=== PATIENT | female | born 1940 | race Caucasian/White ===

== ENCOUNTER 2017-08-09 12:13 | Outpatient (CLI) | payer MEDICARE, OTHER ==
[2017-08-09 12:37] LABS: BASOPHILS # (AUTO) 0.1 10^3/uL (0.0-0.1); BASOPHILS % (AUTO) 1.4 %; EOSINOPHILS # (AUTO) 0.1 10^3/uL (0.0-0.7); EOSINOPHILS % (AUTO) 2.1 %; HGB - HEMOGLOBIN 14.6 g/dL (12.0-16.0); LYMPHOCYTES # (AUTO) 1.5 10^3/uL (1.5-3.5); LYMPHOCYTES % (AUTO) 28.6 %; MEAN CORPUSCULAR HEMOGLOBIN 32.4 pg (27.0-31.0); MEAN CORPUSCULAR HGB CONC 34.2 g/dL (32.0-36.0); MEAN CORPUSCULAR VOLUME 94.5 fL (81.0-99.0); MEAN PLATELET VOLUME 8.9 fL (7.9-10.8); MONOCYTES # (AUTO) 0.4 10^3/uL (0.0-1.0); MONOCYTES % (AUTO) 8.4 %; NEUTROPHILS # (AUTO) 3.2 10^3/uL (1.5-6.6); NEUTROPHILS % (AUTO) 59.5 %; PLT - PLATELET COUNT 217 10^3/uL (130-450); RED CELL DISTRIBUTION WIDTH 14.5 % (12.0-15.0); WHITE BLOOD COUNT 5.4 x10^3/uL (4.8-10.8)
[2017-08-09 12:48] LABS: CALCIUM 9.4 mg/dL (8.5-10.3); CREATININE 0.7 mg/dL (0.4-1.0)
== END 2017-08-09 12:14 | disposition home or self-care (01) ==
LOC: LAB 12:13
PROVIDERS: ATTEND Specialist
DX: L52 Erythema nodosum (principal)
CPT/HCPCS: 36415; 80048; 85025; 85651; 86060

== ENCOUNTER 2017-08-22 11:08 | Outpatient (CLI) | payer MEDICARE, OTHER ==
--- NOTE | 2017-08-22 12:16 | XRAY Report ---
TWO VIEW CHEST: 08/22/2017 CLINICAL INDICATION: Erythema nodosum. COMPARISON: 03/25/2008. FINDINGS: Frontal and lateral views of the chest demonstrate a normal cardiac silhouette. Linear scarring or atelectasis is seen at the left base. No focal infiltrate, effusion, or pneumothorax is present. IMPRESSION: LEFT BASILAR SCARRING OR ATELECTASIS. TD: 08/22/2017 12:15
== END 2017-08-22 11:09 | disposition home or self-care (01) ==
LOC: DI 11:08
PROVIDERS: ATTEND Family Medicine
DX: L52 Erythema nodosum (principal)
CPT/HCPCS: 71046

== ENCOUNTER 2017-09-15 09:05 | Outpatient (CLI) | payer MEDICARE, OTHER ==
[2017-09-15 09:45] LABS: CREATININE 0.8 mg/dL (0.4-1.0)
[2017-09-15] MEDS ORDERED: IOPAMIDOL-300 100 ML VIAL ONE (09:55)
[2017-09-15] MEDS ORDERED: IOPAMIDOL-300 50 ML VIAL ONE (09:55)
--- NOTE | 2017-09-15 12:31 | CT Report ---
CT ABDOMEN AND PELVIS WITH CONTRAST: 09/15/2017 CLINICAL INDICATION: Kidney mass. TECHNIQUE: Axial CT images of the abdomen and pelvis were obtained with 100 mL Isovue 300 intravenously as well as oral contrast. COMPARISON: 05/10/2015. FINDINGS: Limited evaluation of the lung bases demonstrates basilar atelectasis and a small pericardial effusion. ABDOMEN: Right adrenal adenoma is stable at 1.8 cm. There is no evidence of a renal mass. No hydronephrosis or perinephric collection is seen. Cholelithiasis is noted. The liver, spleen and pancreas appear unremarkable. No bowel dilatation, free gas, or free fluid is present. No abdominal adenopathy is seen. PELVIS: The appendix is seen in the right lower quadrant, and is normal in caliber. The patient is status post hysterectomy. No pelvic adenopathy or free fluid is present. Osseous structures demonstrate degenerative changes. IMPRESSION: 1. NO EVIDENCE OF KIDNEY MASS. 2. STABLE RIGHT ADRENAL ADENOMA. 3. CHOLEL[address]ASIS. CT DOSE REDUCTION STATEMENT In accordance with CT protocol optimization, one or more of the following dose reduction techniques were utilized for this exam: automated exposure control, adjustment of mA and/or KV based on patient size, or use of iterative reconstructive technique. TD: 09/15/2017 12:16
[2017-09-15] MEDS ORDERED: IOPAMIDOL-300 50 ML VIAL PO ONE (17:17)
[2017-09-15] MEDS ORDERED: IOPAMIDOL-300 100 ML VIAL IVP ONE (17:17)
== END 2017-09-15 09:06 | disposition home or self-care (01) ==
LOC: LAB 09:05 → DI 09:06
PROVIDERS: ATTEND Specialist
DX: N28.89 Other specified disorders of kidney and ureter (principal); D35.01 Benign neoplasm of right adrenal gland; K80.20 Calculus of gallbladder without cholecystitis without obstruction
CPT/HCPCS: 36415; 74177; 82565; Q9967

== ENCOUNTER 2018-06-03 12:56 | Outpatient (CLI) | payer MEDICARE, OTHER ==
--- NOTE | 2018-06-03 14:12 | XRAY Report ---
Reason: PNEUMONIA Procedure Date: 06/03/2018 Accession Number: [id number] / [id number] Procedure: XRN - Chest 2 View X-Ray CPT Code: 71196 FULL RESULT: EXAM: CHEST RADIOGRAPHY EXAM DATE: 06/03/2018 01:38 PM. CLINICAL HISTORY: PNEUMONIA. COMPARISON: Chest radiograph from 08/22/2017. TECHNIQUE: 2 views. FINDINGS: Lungs/Pleura: Streaky bibasilar opacities have not significantly changed. Streaky right mid lung opacity is slightly increased. Slightly nodular opacities in the right upper lung appear new since the prior examination. A small right pleural effusion is present. No definite left pleural effusion. No pneumothorax. Mediastinum: Cardiomediastinal silhouette and pulmonary vasculature are within normal limits. Other: None. IMPRESSION: 1. Suggestion of mild nodular opacities in the right upper lung, new from the prior examination. Findings could represent sequela of bronchiolitis or bronchopneumonia. However, radiographic follow-up is recommended in 6-8 weeks to ensure resolution and exclude pulmonary nodules. 2. No significant change in streaky bibasilar opacities, which may represent atelectasis or scar. 3. Small left pleural effusion. RADIA
== END 2018-06-03 12:57 | disposition home or self-care (01) ==
LOC: DI.N 12:56
PROVIDERS: ATTEND Specialist
DX: J18.9 Pneumonia, unspecified organism (principal); J90 Pleural effusion, not elsewhere classified
CPT/HCPCS: 71046

== ENCOUNTER 2019-04-10 11:51 | Emergency (ER) | payer MEDICARE, OTHER ==
--- NOTE | 2019-04-10 12:53 | ED Physician Documentation ---
PD HPI Fall - Stated complaint Stated Complaint: ANKLE PX - Chief complaint Chief Complaint: Ext Problem - History obtained from History obtained from: Patient - History of Present Illness Mechanism of injury: Tripped Fall distance: Standing position Where injury occurred: Home Timing - onset: How many days ago (2) Injury(ies) location: Right Upper Extremity, Left Lower Extremity Quality of pain: Pain, Throbbing Associated symptoms: No: LOC, AMS, Amnesia Symptoms improve with: Rest Worsens with: Movement, Palpation Contributing factors: No: Anticoagulated, Intoxicated Similar symptoms before: Has not had sx before Recently seen: Not recently seen - Additional information Additional information: 78 y/o female 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 Review of Systems Constitutional: denies: Fever Cardiac: denies: Chest pain / pressure Respiratory: denies: Cough GI: denies: Abdominal Pain, Nausea, Vomiting Skin: denies: Rash Musculoskeletal: reports: Extremity pain, Joint pain, Joint swelling, Pain with weight bearing. 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 HEENT: Tonsil/Adenoidectomy - Present Medications Home Medications: Ambulatory Orders Medication Instructions Recorded Confirmed Amitriptyline HCl 75 mg PO 08/28/12 03/26/15 Aspirin [Aspir 81] 81 mg PO 08/28/12 03/26/15 Citalopram [CeleXA] 20 mg PO DAILY 08/28/12 03/26/15 Diazepam [Valium] 5 mg PO Q8H PRN #15 tablet 08/28/12 03/26/15 Gabapentin [Neurontin] 100 mg PO TID 08/28/12 03/26/15 Hydrochlorothiazide 25 mg PO DAILY 08/28/12 03/26/15 Metoprolol Succinate 25 mg PO DAILY 08/28/12 03/26/15 Prazosin HCl [Minipress] 2 mg PO DAILY 08/28/12 03/26/15 amLODIPine [Norvasc] 10 mg PO DAILY 08/28/12 03/26/15 busPIRone [Buspar] 15 mg PO BID 08/28/12 03/26/15 HYDROcod/ACETAM 5/325 [Vicodin 1 - 2 ea PO Q6H PRN #30 tablet 03/26/13 03/26/15 5/325] Phenazopyridine [Pyridium] 200 mg PO TID 2 Days tablet 04/16/14 03/26/15 Lisinopril [Zestril] 5 mg PO DAILY 09/07/14 03/26/15 Sulfamethoxazole/Trimethoprim 1 each PO BID #14 tablet 03/26/15 [Sulfamethoxazole-Tmp Ds Tablet] Sulfamethoxazole/Trimethoprim 1 each PO BID #14 tablet 04/10/19 [Sulfamethoxazole-Tmp Ds Tablet] predniSONE [Prednisone] 40 mg PO DAILY #10 tablet 04/10/19 - Allergies Allergies/Adverse Reactions: Allergies Allergy/AdvReac Type Severity Reaction Status Date / Time ibuprofen AdvReac Severe Nausea Verified 04/10/19 12:08 aspirin AdvReac Mild Nausea Verified 04/10/19 12:08 codeine AdvReac Mild Nausea Verified 04/10/19 12:08 - Social History Does the pt smoke?: No Smoking Status: Never smoker Does the pt drink ETOH?: No Does the pt have substance abuse?: No - Immunizations Immunizations are current?: Yes PD ED PE NORMAL - Vitals Vital signs reviewed: Yes (tachy and hypertensive) - General General: Alert and oriented X 3, No acute distress, Well developed/nourished - HEENT HEENT: Atraumatic, PERRL, EOMI - Respiratory Respiratory: No respiratory distress - Derm Derm: Normal color, Warm and dry, No rash - Extremities Extremities: Other (There is marked swelling to the lateral left ankle over the talo-fibular ligament and there is not tenderness to the proximal 5th. distal n/v is intact. 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, No motor deficit, No sensory deficit, Normal speech Eye Opening: Spontaneous Motor: Obeys Commands Verbal: Oriented GCS Score: 15 - Psych Psych: Normal mood, Normal affect Results - Vitals Vitals: Vital Signs - 24 hr 04/10/19 12:05 Temperature 36.8 C Heart Rate 105 H Respiratory 18 Rate Blood Pressure 144/73 H O2 Saturation 95 Oxygen O2 Source Room air - Labs Labs: Laboratory Tests 04/10/19 13:35 Urine Color DARK YELLOW Urine Clarity CLEAR Urine pH 7.5 Ur Specific [place] 1.010 Urine Protein NEGATIVE Urine Glucose (UA) NEGATIVE Urine Ketones NEGATIVE Urine Occult Blood NEGATIVE Urine Nitrite POSITIVE H Urine Bilirubin NEGATIVE Urine Urobilinogen 1 (NORMAL) Ur Leukocyte Esterase TRACE H Urine RBC None Seen Urine WBC 6-10 H Ur Squamous Epith Cells MOD Squamous H Urine Bacteria Few Urine Casts 0-2 Hyaline Casts Ur Microscopic Review INDICATED Urine Culture Comments NOT INDICATED - Rads (name of study) ankle L Radiology: Prelim report reviewed (Impression: No left ankle fracture or malalignment seen.), EMP read indepedently, See rad report shoulder Radiology: Prelim report reviewed (Impression: No evidence for acute osseous injury.), EMP read indepedently, See rad report PD MEDICAL DECISION MAKING - ED course Complexity details: reviewed results, re-evaluated patient, considered differential, d/w patient ED course: 78 y/o female with a trip and fall in the bathroom has twisted her ankle and sprained her shoulders. Imagining is without evidence of fracture. She has a lot of swelling and is placed into a walking boot for ambulation. Departure - Departure Disposition: 01 Home, Self Care Clinical Impression: Urinary tract infection Qualifiers: Urinary tract infection type: acute cystitis Hematuria presence: without hematuria Qualified Code(s): N30.00 - Acute cystitis without hematuria Ankle sprain Qualifiers: Encounter type: initial encounter Involved ligament of ankle: calcaneofibular ligament Laterality: left Qualified Code(s): S93.412A - Sprain of calcan eofibular ligament of left ankle, initial encounter Shoulder sprain Qualifiers: Encounter type: initial encounter Shoulder sprain type: unspecified sprain Laterality: right Qualified Code(s): S43.401A - Unspecified sprain of right shoulder joint, initial encounter Condition: Stable Instructions: ED Sprain Ankle W X Ray, ED Sprain Shoulder, ED UTI Cystitis Female Follow-Up: [facility] [Provider Group] [facility] [Provider Group] Prescriptions: predniSONE [Prednisone] 40 mg PO DAILY #10 tablet Sulfamethoxazole/Trimethoprim [Sulfamethoxazole-Tmp Ds Tablet] 1 each PO BID #14 tablet
--- NOTE | 2019-04-10 13:45 | XRAY Report ---
Reason: ankle/shoulder inj Procedure Date: 04/10/2019 Accession Number: [id number] / [id number] Procedure: XR - Ankle 3 View LT CPT Code: Final Report FULL RESULT: EXAM: LEFT ANKLE RADIOGRAPHY EXAM DATE: 04/10/2019 01:22 PM. CLINICAL HISTORY: Ankle injury, pain COMPARISON: None. TECHNIQUE: 3 views. FINDINGS: Bones: No displaced fractures or bone lesions. Tiny well-corticated ossifications distal to the lateral and medial malleoli may be result of old trauma. Joints: Ankle mortise appears symmetric. No significant degenerative changes. Soft Tissues: Lateral soft tissue swelling. IMPRESSION: No left ankle fracture or malalignment seen. RADIA
--- NOTE | 2019-04-10 13:47 | XRAY Report ---
Reason: ankle/shoulder inj Procedure Date: 04/10/2019 Accession Number: [id number] / [id number] Procedure: XR - Shoulder 3 View BILAT CPT Code: Final Report FULL RESULT: Bilateral Shoulder Radiography EXAM DATE: 04/10/2019 01:22 PM. CLINICAL HISTORY: Ankle/shoulder inj. COMPARISON: None. TECHNIQUE: 3 views each. FINDINGS: Right: Bones: No fracture or bone lesion. Joints: The glenohumeral and acromioclavicular joints are normal. Soft tissues: The visualized hemithorax is unremarkable. No soft tissue swelling. Left: Bones: No fracture or bone lesion. Joints: The glenohumeral and acromioclavicular joints are normal. Soft tissues: The visualized hemithorax is unremarkable. No soft tissue swelling. IMPRESSION: No evidence for acute osseous injury. RADIA
[2019-04-10 13:49] LABS: BILIRUBIN,URINE NEGATIVE (NEGATIVE); GLUCOSE, URINE (UA) NEGATIVE (NEGATIVE); KETONES,URINE (UA) NEGATIVE (NEGATIVE); LEUKOCYTE ESTERASE, URINE TRACE (NEGATIVE); NITRITE,URINE POSITIVE (NEGATIVE); OCCULT BLOOD,URINE NEGATIVE (NEGATIVE); PH,URINE 7.5 PH (5.0-7.5); PROTEIN,URINE NEGATIVE (NEGATIVE); UROBILINOGEN,URINE 1 (NORMAL) E.U./dL (NORMAL)
[2019-04-10 13:52] LABS: CLARITY,URINE CLEAR (CLEAR)
[2019-04-10 14:03] LABS: BACTERIA,URINE Few /HPF (None Seen); CASTS, URINE 0-2 Hyaline Casts /LPF; RBC,URINE None Seen /HPF (0-5); SQUAMOUS EPITHELIAL CELL,UR MOD Squamous (<= Few)
[2019-04-10 14:16] VITALS: BP 152/74
== END 2019-04-10 14:16 | disposition home or self-care (01) ==
LOC: ED 11:51
DX: S93.412A Sprain of calcaneofibular ligament of left ankle, initial encounter (principal); S43.401A Unspecified sprain of right shoulder joint, initial encounter; W01.0XXA Fall on same level from slipping, tripping and stumbling without subsequent striking against object, initial encounter; Y92.002 Bathroom of unspecified non-institutional (private) residence as the place of occurrence of the external cause; N30.00 Acute cystitis without hematuria; I10 Essential (primary) hypertension; Z79.82 Long term (current) use of aspirin
CPT/HCPCS: 81001; 81003; 87086; 99284

== ENCOUNTER 2020-03-12 11:03 | Emergency (ER) | payer MEDICARE, OTHER ==
[2020-03-12 11:48] LABS: BILIRUBIN,URINE NEGATIVE (NEGATIVE); GLUCOSE, URINE (UA) NEGATIVE (NEGATIVE); KETONES,URINE (UA) NEGATIVE (NEGATIVE); LEUKOCYTE ESTERASE, URINE SMALL (NEGATIVE); NITRITE,URINE NEGATIVE (NEGATIVE); OCCULT BLOOD,URINE NEGATIVE (NEGATIVE); PROTEIN,URINE NEGATIVE (NEGATIVE); UROBILINOGEN,URINE 0.2 (NORMAL) E.U./dL (NORMAL)
[2020-03-12 11:56] LABS: CLARITY,URINE HAZY (CLEAR)
[2020-03-12 12:16] LABS: BASOPHILS # (AUTO) 0.1 10^3/uL (0.0-0.1); BASOPHILS % (AUTO) 1.3 %; EOSINOPHILS # (AUTO) 0.1 10^3/uL (0.0-0.7); EOSINOPHILS % (AUTO) 1.4 %; HGB - HEMOGLOBIN 15.4 g/dL (12.0-16.0); LYMPHOCYTES % (AUTO) 25.4 %; MEAN CORPUSCULAR HGB CONC 33.4 g/dL (32.0-36.0); MEAN CORPUSCULAR VOLUME 95.6 fL (81.0-99.0); MEAN PLATELET VOLUME 10.6 fL (7.9-10.8); MONOCYTES # (AUTO) 0.7 10^3/uL (0.0-1.0); MONOCYTES % (AUTO) 9.3 %; NEUTROPHILS % (AUTO) 62.3 %; PLT - PLATELET COUNT 256 10^3/uL (130-450); RED BLOOD COUNT 4.82 10^6/uL (4.20-5.40); RED CELL DISTRIBUTION WIDTH 13.2 % (12.0-15.0)
[2020-03-12 12:17] LABS: BACTERIA,URINE Few /HPF (None Seen); RBC,URINE 0-5 /HPF (0-5); SQUAMOUS EPITHELIAL CELL,UR FEW Squamous (<= Few); WBC CLUMPS,URINE PRESENT
[2020-03-12 12:30] LABS: ALBUMIN 4.1 g/dL (3.2-5.5); ALBUMIN/GLOBULIN RATIO 1.2 (1.0-2.2); BILIRUBIN,TOTAL 0.7 mg/dL (0.2-1.0); CALCIUM 9.8 mg/dL (8.5-10.3); CREATININE 0.8 mg/dL (0.4-1.0); TOTAL PROTEIN 7.5 g/dL (6.7-8.2)
[2020-03-12] MEDS ORDERED: ACETAMINOPHEN 325 MG TABLET PO STA (12:39)
[2020-03-12 13:14] VITALS: BP 147/98
--- NOTE | 2020-03-12 16:03 | ED Physician Documentation ---
History of Present Illness - Stated complaint Stated Complaint: FEMALE - Chief complaint Chief Complaint: UTI - Additonal information Additional information: 79-year-old woman with past medical history of recurrent UTIPresents with suprapubic abdominal pain that is mild, nonradiating aching, gradual onset today, associated with dysuria. Denies fever chills nausea vomiting or new onset back pain. Denies hematuria. Review of Systems Ten Systems: 10 systems reviewed and negative Constitutional: denies: Fever, Chills GI: reports: Abdominal Pain. 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 HEENT: Tonsil/Adenoidectomy - Present Medications Home Medications: Ambulatory Orders Medication Instructions Recorded Confirmed Amitriptyline HCl 75 mg PO 08/28/12 03/26/15 Aspirin [Aspir 81] 81 mg PO 08/28/12 03/26/15 Citalopram [CeleXA] 20 mg PO DAILY 08/28/12 03/26/15 Diazepam [Valium] 5 mg PO Q8H PRN #15 tablet 08/28/12 03/26/15 Gabapentin [Neurontin] 100 mg PO TID 08/28/12 03/26/15 Hydrochlorothiazide 25 mg PO DAILY 08/28/12 03/26/15 Metoprolol Succinate 25 mg PO DAILY 08/28/12 03/26/15 Prazosin HCl [Minipress] 2 mg PO DAILY 08/28/12 03/26/15 amLODIPine [Norvasc] 10 mg PO DAILY 08/28/12 03/26/15 busPIRone [Buspar] 15 mg PO BID 08/28/12 03/26/15 HYDROcod/ACETAM 5/325 [Vicodin 1 - 2 ea PO Q6H PRN #30 tablet 03/26/13 03/26/15 5/325] Phenazopyridine [Pyridium] 200 mg PO TID 2 Days tablet 04/16/14 03/26/15 lisinopriL [Zestril] 5 mg PO DAILY 09/07/14 03/26/15 Sulfamethoxazole/Trimethoprim 1 each PO BID #14 tablet 03/26/15 [Sulfamethoxazole-Tmp Ds Tablet] Sulfamethoxazole/Trimethoprim 1 each PO BID #14 tablet 04/10/19 [Sulfamethoxazole-Tmp Ds Tablet] predniSONE [Prednisone] 40 mg PO DAILY #10 tablet 04/10/19 Cephalexin [Keflex] 500 mg PO BID 5 Days #10 capsule 03/12/20 - Allergies Allergies/Adverse Reactions: Allergies Allergy/AdvReac Type Severity Reaction Status Date / Time ibuprofen AdvReac Severe Nausea Verified 03/12/20 11:24 aspirin AdvReac Mild Nausea Verified 03/12/20 11:24 codeine AdvReac Mild Nausea Verified 03/12/20 11:24 - Social History Does the pt smoke?: No Smoking Status: Never smoker Does the pt drink ETOH?: No Does the pt have substance abuse?: No - Immunizations Immunizations are current?: Yes - POLST Patient has POLST: No PD ED PE NORMAL - Vitals Vital signs reviewed: Yes - General General: Alert and oriented X 3 - HEENT HEENT: Atraumatic, PERRL, EOMI - Neck Neck: Supple, no meningeal sign - Cardiac Cardiac: RRR - Respiratory Respiratory: No respiratory distress - Abdomen Abdomen: Normal bowel sounds, Non tender, Non distended - Female Female : Deferred - Rectal Rectal: Deferred - Back Back: No CVA TTP - Derm Derm: Normal color - Extremities Extremities: No deformity - Neuro Neuro: Alert and oriented X 3 - Psych Psych: Normal mood, Normal affect Results - Vitals Vitals: Vital Signs - 24 hr 03/12/20 03/12/20 03/12/20 11:20 11:39 13:10 Temperature 36.0 C L 36.7 C 36.7 C Heart Rate 103 H 97 97 Respiratory 18 16 16 Rate Blood Pressure 173/91 H 148/91 H 147/98 H O2 Saturation 97 99 98 Oxygen O2 Source Room air - Labs Labs: Laboratory Tests 03/12/20 03/12/20 03/12/20 11:30 12:10 12:10 WBC 8.0 RBC 4.82 Hgb 15.4 Hct 46.1 MCV 95.6 MCH 32.0 H MCHC 33.4 RDW 13.2 Plt Count 256 MPV 10.6 Neut # (Auto) 5.0 Lymph # (Auto) 2.0 [place] # (Auto) 0.7 Eos # (Auto) 0.1 Baso # (Auto) 0.1 Absolute Nucleated RBC 0.00 Nucleated RBC % 0.0 Sodium 139 Potassium 4.2 Chloride 99 L Carbon Dioxide 29 Anion Gap 11.0 BUN 16 Creatinine 0.8 Estimated GFR (MDRD) 70 L Glucose 110 H Calcium 9.8 Total Bilirubin 0.7 AST 24 ALT 21 Alkaline Phosphatase 76 Total Protein 7.5 Albumin 4.1 Globulin 3.4 Albumin/Globulin Ratio 1.2 Lipase 38 Urine Color YELLOW Urine Clarity HAZY Urine pH 7.0 Ur Specific [place] 1.015 Urine Protein NEGATIVE Urine Glucose (UA) NEGATIVE Urine Ketones NEGATIVE Urine Occult Blood NEGATIVE Urine Nitrite NEGATIVE Urine Bilirubin NEGATIVE Urine Urobilinogen 0.2 (NORMAL) Ur Leukocyte Esterase SMALL H Urine RBC 0-5 Urine WBC 6-10 H Urine WBC Clumps PRESENT Ur Squamous Epith Cells FEW Squamous Urine Bacteria Few Ur Microscopic Review INDICATED Urine Culture Comments INDICATED PD MEDICAL DECISION MAKING - ED course Complexity details: reviewed results, d/w patient ED course: 79-year-old woman with recurrent UTIs presents with a episode of cystitis today. Keflex sent to pharmacy, with instructions to patient to take Florastor as well. Patient will need to follow-up with her primary doctor this week. strict return precautions given Departure - Departure Disposition: 01 Home, Self Care Clinical Impression: Cystitis Condition: Good Instructions: ED UTI Cystitis Female Prescriptions: Cephalexin [Keflex] 500 mg PO BID 5 Days #10 capsule Comments: You have been seen in the emergency department for urinary tract infection. Please take these antibiotics as prescribed. Follow-up with your primary doctor. Return to the ED for any new or worsening symptoms. Ask your pharmacist for Florastor Saccharomyces Boulardii pills to Be taken with your antibiotics to make sure that you restore your gut isaias. Discharge Date/Time: 03/12/20 13:16
== END 2020-03-12 13:16 | disposition home or self-care (01) ==
LOC: ED 11:03
DX: N30.90 Cystitis, unspecified without hematuria (principal); I10 Essential (primary) hypertension; Z79.82 Long term (current) use of aspirin
CPT/HCPCS: 36415; 80053; 81001; 83690; 85025; 87086; 87181; 99283; 99284; A9270; 81003

== ENCOUNTER 2021-08-22 01:45 | Outpatient (CLI) | payer MEDICARE, OTHER | END 2021-08-22 01:46 | disposition critical access hospital (66) | LOC: EMS 01:45 | DX: R44.1 Visual hallucinations (principal); R44.0 Auditory hallucinations; R51.9 Headache, unspecified; S00.12XA Contusion of left eyelid and periocular area, initial encounter; W19.XXXA Unspecified fall, initial encounter; Z91.81 History of falling | CPT/HCPCS: A0425; A0427 ==

== ENCOUNTER 2021-08-22 01:56 | Inpatient (IN) | payer MEDICARE, OTHER ==
--- NOTE | 2021-08-22 02:05 | ED Physician Documentation ---
PD HPI ALTERED MENTAL STATUS - Stated complaint Stated Complaint: AMS - History obtained from History obtained from: Patient, EMS - History of Present Illness Timing - onset: Unknown (see below (timing/onset is not clear)) Timing - duration: Weeks Quality / character: Hallucinating Associated symptoms: Headache. 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 Patient apparently called 911 due to hallucinations, although on my HPI she does not seem to be upset/bothered by the hallucinations and she is convinced they are not hallucinations. She also says she fell yesterday at home. EMS report that FSBS was 150. On my HPI, patient is definitely hallucinating but she cannot tell me what her chief concern is nor what she hopes can be done for her on this ER visit. Review of Systems Constitutional: denies: Fever Cardiac: reports: Reviewed and negative Respiratory: reports: Reviewed and negative GI: reports: Reviewed and negative : denies: Dysuria, Frequency Musculoskeletal: reports: Reviewed and negative Neurologic: reports: Headache, Head injury. denies: Generalized weakness, Focal weakness, Numbness, LOC Psychiatric: reports: Hallucinations. 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 HEENT: Tonsil/Adenoidectomy - Present Medications Home Medications: Ambulatory Orders Medication Instructions Recorded Confirmed Amitriptyline HCl 75 mg PO 08/28/12 03/26/15 Aspirin [Aspir 81] 81 mg PO 08/28/12 03/26/15 Citalopram [CeleXA] 20 mg PO DAILY 08/28/12 03/26/15 Diazepam [Valium] 5 mg PO Q8H PRN #15 tablet 08/28/12 03/26/15 Gabapentin [Neurontin] 100 mg PO TID 08/28/12 03/26/15 Hydrochlorothiazide 25 mg PO DAILY 08/28/12 03/26/15 Metoprolol Succinate 25 mg PO DAILY 08/28/12 03/26/15 Prazosin HCl [Minipress] 2 mg PO DAILY 08/28/12 03/26/15 amLODIPine [Norvasc] 10 mg PO DAILY 08/28/12 03/26/15 busPIRone [Buspar] 15 mg PO BID 08/28/12 03/26/15 HYDROcod/ACETAM 5/325 [Vicodin 1 - 2 ea PO Q6H PRN #30 tablet 03/26/13 03/26/15 5/325] Phenazopyridine [Pyridium] 200 mg PO TID 2 Days tablet 04/16/14 03/26/15 lisinopriL [Zestril] 5 mg PO DAILY 09/07/14 03/26/15 Sulfamethoxazole/Trimethoprim 1 each PO BID #14 tablet 03/26/15 [Sulfamethoxazole-Tmp Ds Tablet] Sulfamethoxazole/Trimethoprim 1 each PO BID #14 tablet 04/10/19 [Sulfamethoxazole-Tmp Ds Tablet] predniSONE [Prednisone] 40 mg PO DAILY #10 tablet 04/10/19 cephALEXin [Keflex] 500 mg PO BID 5 Days #10 capsule 03/12/20 - Allergies Allergies/Adverse Reactions: Allergies Allergy/AdvReac Type Severity Reaction Status Date / Time ibuprofen AdvReac Severe Nausea Verified 08/22/21 02:11 aspirin AdvReac Mild Nausea Verified 08/22/21 02:11 codeine AdvReac Mild Nausea Verified 08/22/21 02:11 - Social History Does the pt smoke?: No Smoking Status: Never smoker Does the pt drink ETOH?: No Does the pt have substance abuse?: No - Immunizations Immunizations are current?: Yes - POLST Patient has POLST: No PD ED PE NORMAL - Vitals Vital signs reviewed: Yes - General General: No acute distress, Well developed/nourished, Other (awake, alert. she is at least oriented x 2 (self, year). when I ask about location/place, she repeatedly provides irrelevant answer, mostly regarding her insurance and questions about how much this ED visit will cost) - HEENT HEENT: PERRL, EOMI, Moist mucous membranes, Other (left supraorbital flat echymosis without tenderness to palpation) - Neck Neck: No bony TTP - Cardiac Cardiac: RRR, No murmur - Respiratory Respiratory: No respiratory distress, Clear bilaterally - Abdomen Abdomen: Soft, Non tender - Derm Derm: Normal color, Warm and dry - Extremities Extremities: No deformity, No tenderness to palpate, No edema - Neuro Neuro: No motor deficit, No sensory deficit, Normal speech Results - Vitals Vitals: Vital Signs - 24 hr 08/22/21 08/22/21 08/22/21 02:05 02:11 04:00 Temperature 37.2 C Heart Rate 102 H 103 H 96 Respiratory 16 16 18 Rate Blood Pressure 175/104 H 195/90 H O2 Saturation 98 96 96 08/22/21 08/22/21 08/22/21 06:10 07:34 08:48 Temperature Heart Rate 83 74 73 Respiratory 19 18 19 Rate Blood Pressure 217/89 H 174/88 H 174/74 H O2 Saturation 97 97 96 Oxygen O2 Source Room air - Labs Labs: Microbiology 08/22/21 03:45 Urine Culture - Preliminary Urine,Clean Catch CULTURE IN PROGRESS. RESULTS TO FOLLOW. Laboratory Tests 08/22/21 08/22/21 08/22/21 02:21 02:21 02:21 WBC 9.4 RBC 4.63 Hgb 14.6 Hct 43.6 MCV 94.2 MCH 31.5 H MCHC 33.5 RDW 12.9 Plt Count 230 MPV 11.2 H Neut # (Auto) 6.2 Lymph # (Auto) 2.1 [place] # (Auto) 0.8 Eos # (Auto) 0.2 Baso # (Auto) 0.1 Absolute Nucleated RBC 0.00 Nucleated RBC % 0.0 Sodium 137 Potassium 3.2 L Chloride 101 Carbon Dioxide 27 Anion Gap 9.0 BUN 15 Creatinine 1.0 Estimated GFR (MDRD) 53 L Glucose 159 H Calcium 9.4 Total Bilirubin 0.7 AST 42 ALT 41 Alkaline Phosphatase 62 Total Protein 7.6 Albumin 3.8 Globulin 3.8 Albumin/Globulin Ratio 1.0 Lipase 30 TSH 2.84 Urine Color Urine Clarity Urine pH Ur Specific [place] Urine Protein Urine Glucose (UA) Urine Ketones Urine Occult Blood Urine Nitrite Urine Bilirubin Urine Urobilinogen Ur Leukocyte Esterase Urine RBC Urine WBC Ur Squamous Epith Cells Amorphous Sediment Urine Bacteria Urine Casts Ur Microscopic Review Urine Culture Comments Urine Opiates Screen Ur Oxycodone Screen Urine Methadone Screen Ur Propoxyphene Screen Ur Barbiturates Screen Ur Tricyclics Screen Ur Phencyclidine Scrn Ur Amphetamine Screen U Methamphetamines Scrn U Benzodiazepines Scrn Urine Cocaine Screen U Cannabinoids Screen Ethyl Alcohol < 5.0 08/22/21 03:45 WBC RBC Hgb Hct MCV MCH MCHC RDW Plt Count MPV Neut # (Auto) Lymph # (Auto) [place] # (Auto) Eos # (Auto) Baso # (Auto) Absolute Nucleated RBC Nucleated RBC % Sodium Potassium Chloride Carbon Dioxide Anion Gap BUN Creatinine Estimated GFR (MDRD) Glucose Calcium Total Bilirubin AST ALT Alkaline Phosphatase Total Protein Albumin Globulin Albumin/Globulin Ratio Lipase TSH Urine Color YELLOW Urine Clarity SL. CLOUDY Urine pH 6.5 Ur Specific [place] 1.010 Urine Protein TRACE Urine Glucose (UA) NEGATIVE Urine Ketones NEGATIVE Urine Occult Blood NEGATIVE Urine Nitrite NEGATIVE Urine Bilirubin NEGATIVE Urine Urobilinogen 0.2 (NORMAL) Ur Leukocyte Esterase MODERATE H Urine RBC 0-5 Urine WBC 6-10 H Ur Squamous Epith Cells FEW Squamous Amorphous Sediment Few Urine Bacteria Rare Urine Casts 3-5 Hyaline Casts Ur Microscopic Review INDICATED Urine Culture Comments INDICATED Urine Opiates Screen NEGATIVE Ur Oxycodone Screen NEGATIVE Urine Methadone Screen NEGATIVE Ur Propoxyphene Screen NEGATIVE Ur Barbiturates Screen NEGATIVE Ur Tricyclics Screen POSITIVE H Ur Phencyclidine Scrn NEGATIVE Ur Amphetamine Screen NEGATIVE U Methamphetamines Scrn NEGATIVE U Benzodiazepines Scrn NEGATIVE Urine Cocaine Screen NEGATIVE U Cannabinoids Screen NEGATIVE Ethyl Alcohol - Rads (name of study) CT head Radiology: Prelim report reviewed, See rad report PD MEDICAL DECISION MAKING - ED course Complexity details: reviewed old records, reviewed results, re-evaluated patient, considered differential, d/w patient, d/w family ED course: patient is awake, alert, conversant, and pleasant. She repeatedly endorses hallucinations, mostly involving one or more parrots that she insists are in the room. She initially seems comfortable with these hallucinations, even pleased to see what she says is her pet parrot. Later in stay, however, she becomes mildly upset , saying that the birds might hurt her or others. I talked with her son Peter (by phone), and he says she has had hallucinations for a few weeks. He says they have included thinking he (patient's son) had been hurt after they watched a true crime show on television, as well as recurrent thoughts that her had come back to life and was in the house. Patient's son says patient is self-sufficient and has not needed help with ADLs such as eating, grooming. He says he does not know what medications she takes as she handles her medications herself. Telepsychiatric consultation obtained, recommendations while in ED include zyprexa 2.5-5mg PO q6 hours PRN agitation. The telepsychiatrist also spoke with the patient's son Peter and it remains unclear as to whether patient would benefit from inpatient treatment at this time. Plan is to obtain social work consult to further ascertain if patient and her son would prefer inpatient treatment versus discharge and follow up with primary care provider. Patient is given 5mg TL zyprexa in ED and this did reduce her agitation and anxiety although the hallucinations regarding parrots in the room persisted. Care of patient turned over to Dr. Joshi at end of my shift pending SW consult and disposition. Departure - Departure Clinical Impression: Hallucinations Urinary tract infection Qualifiers: Urinary tract infection type: acute cystitis Hematuria presence: without hematuria Qualified Code(s): N30.00 - Acute cystitis without hematuria Condition: Stable Instructions: ED Confusion, ED UTI Cystitis Female Comments: Take the antibiotic prescribed by your primary care provider (Dr. Wolf) for your urinary tract infection. Outpatient pharmacy records indicate you filled a prescription for macrobid (nitrofurantoin, an antibiotic) yesterday (08/21); please take this as prescribed. Please follow up with your primary care provider as soon as can be arranged.
[2021-08-22 02:22] LABS: BASOPHILS # (AUTO) 0.1 10^3/uL (0.0-0.1); EOSINOPHILS # (AUTO) 0.2 10^3/uL (0.0-0.7); EOSINOPHILS % (AUTO) 1.6 %; HCT - HEMATOCRIT 43.6 % (37.0-47.0); HGB - HEMOGLOBIN 14.6 g/dL (12.0-16.0); LYMPHOCYTES # (AUTO) 2.1 10^3/uL (1.5-3.5); LYMPHOCYTES % (AUTO) 22.1 %; MEAN CORPUSCULAR HEMOGLOBIN 31.5 pg (27.0-31.0); MEAN CORPUSCULAR HGB CONC 33.5 g/dL (32.0-36.0); MEAN CORPUSCULAR VOLUME 94.2 fL (81.0-99.0); MEAN PLATELET VOLUME 11.2 fL (7.9-10.8); MONOCYTES # (AUTO) 0.8 10^3/uL (0.0-1.0); MONOCYTES % (AUTO) 8.9 %; NEUTROPHILS # (AUTO) 6.2 10^3/uL (1.5-6.6); NEUTROPHILS % (AUTO) 66.1 %; PLT - PLATELET COUNT 230 10^3/uL (130-450); RED BLOOD COUNT 4.63 10^6/uL (4.20-5.40); RED CELL DISTRIBUTION WIDTH 12.9 % (12.0-15.0); WHITE BLOOD COUNT 9.4 x10^3/uL (4.8-10.8)
[2021-08-22 02:35] LABS: ALBUMIN 3.8 g/dL (3.2-5.5); ALKALINE PHOSPHATASE 62 IU/L (42-121); ALT ALANINE AMINOTRANSFERASE 41 IU/L (10-60); AST ASPARTATE AMINOTRANSFERASE 42 IU/L (10-42); BILIRUBIN,TOTAL 0.7 mg/dL (0.2-1.0); BUN - BLOOD UREA NITROGEN 15 mg/dL (6-20); CALCIUM 9.4 mg/dL (8.5-10.3); CARBON DIOXIDE - CO2 27 mmol/L (21-32); CHLORIDE 101 mmol/L (101-111); ETOH - ETHANOL < 5.0 mg/dL; GFR - MDRD 53 (>89); GLUCOSE 159 mg/dL (70-100); LIPASE 30 U/L (22-51); POTASSIUM 3.2 mmol/L (3.5-5.0); SODIUM 137 mmol/L (135-145); TOTAL PROTEIN 7.6 g/dL (6.7-8.2)
[2021-08-22 03:51] LABS: MUDS CUTOFF CONCENTRATIONS CUTOFF CONC BELOW:
[2021-08-22 03:53] LABS: BILIRUBIN,URINE NEGATIVE (NEGATIVE); GLUCOSE, URINE (UA) NEGATIVE (NEGATIVE); KETONES,URINE (UA) NEGATIVE (NEGATIVE); LEUKOCYTE ESTERASE, URINE MODERATE (NEGATIVE); NITRITE,URINE NEGATIVE (NEGATIVE); OCCULT BLOOD,URINE NEGATIVE (NEGATIVE); PH,URINE 6.5 PH (5.0-7.5); PROTEIN,URINE TRACE mg/dL (NEGATIVE); UROBILINOGEN,URINE 0.2 (NORMAL) E.U./dL (NORMAL)
[2021-08-22 03:55] LABS: CLARITY,URINE SL. CLOUDY (CLEAR)
[2021-08-22 04:02] LABS: AMPHETAMINE SCREEN,URINE NEGATIVE (NEGATIVE); BARBITURATE SCREEN,UR NEGATIVE (NEGATIVE); BENZODIAZEPINES SCREEN, URINE NEGATIVE (NEGATIVE); COCAINE SCREEN URINE NEGATIVE (NEGATIVE); METHADONE SCREEN, URINE NEGATIVE (NEGATIVE); METHAMPHETAMINES SCREEN, URINE NEGATIVE (NEGATIVE); OPIATE SCREEN, URINE NEGATIVE (NEGATIVE); OXYCODONE SCREEN, URINE NEGATIVE (NEGATIVE); PROPOXYPHENE SCREEN, URINE NEGATIVE (NEGATIVE); THC CANNABINOID SCREEN, URINE NEGATIVE (NEGATIVE); TRICYCLIC ANTIDEPRESSANT,URINE POSITIVE (NEGATIVE)
[2021-08-22 04:05] LABS: AMORPHOUS SEDIMENT,UR Few /LPF; BACTERIA,URINE Rare /HPF (None Seen); CASTS, URINE 3-5 Hyaline Casts /LPF; RBC,URINE 0-5 /HPF (0-5); SQUAMOUS EPITHELIAL CELL,UR FEW Squamous (<= Few)
[2021-08-22] MEDS ORDERED: cefTRIAXone 1 GM in SODIUM CHLORIDE 0.9% MINIBAG 100 ML IV STA (04:21)
[2021-08-22] MEDS ORDERED: METOPROLOL TARTRATE 50 MG TABLET PO STA (04:37)
[2021-08-22] MEDS ORDERED: METOPROLOL SUCCINATE 25 MG TABLET PO STA (04:41)
[2021-08-22] MEDS ORDERED: cefTRIAXone 1 GM VIAL ONE (04:45)
[2021-08-22] MEDS ORDERED: OLANZapine ODT 5 MG TABLET TL STA ×2 (06:20→13:34)
[2021-08-22] MEDS ORDERED: METOPROLOL 5 MG/5 ML VIAL IVP STA (06:42)
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
--- NOTE | 2021-08-22 08:20 | CT Report ---
PROCEDURE: HEAD WO INDICATIONS: recent fall, AMS TECHNIQUE: Noncontrast 4.5 mm thick angled axial sections acquired from the foramen magnum to the vertex. For r adiation dose reduction, the following was used: automated exposure control, adjustment of mA and/or kV according to patient size. COMPARISON: None. FINDINGS: Image quality: Excellent. CSF spaces: Basal cisterns are patent. No extra-axial fluid collections. Ventricles are normal in size and shape. Brain: No midline shift. No intracranial masses or hemorrhage. Mild cerebral volume loss and perive ntricular white matter chronic small vessel ischemic changes.. Skull and face: Calvarium and visualized facial bones are intact, without suspicious lesions. Sinuses: Visualized sinuses and mastoids are clear. IMPRESSION: 1. No acute intracranial abnormalities. No significant discrepancy with the preliminary interpretation. Reviewed by: Rome Banda MD on 08/22/2021 8:19 AM PDT Approved by: Rome Banda MD on 08/22/2021 8:19 AM PDT Station ID: [id number]
[2021-08-22 16:28] LABS: BASOPHILS # (AUTO) 0.1 10^3/uL (0.0-0.1); BASOPHILS % (AUTO) 1.1 %; EOSINOPHILS # (AUTO) 0.1 10^3/uL (0.0-0.7); EOSINOPHILS % (AUTO) 1.4 %; HCT - HEMATOCRIT 43.8 % (37.0-47.0); HGB - HEMOGLOBIN 14.8 g/dL (12.0-16.0); LYMPHOCYTES # (AUTO) 2.3 10^3/uL (1.5-3.5); LYMPHOCYTES % (AUTO) 27.5 %; MEAN CORPUSCULAR HEMOGLOBIN 31.7 pg (27.0-31.0); MEAN CORPUSCULAR HGB CONC 33.8 g/dL (32.0-36.0); MEAN CORPUSCULAR VOLUME 93.8 fL (81.0-99.0); MEAN PLATELET VOLUME 10.9 fL (7.9-10.8); MONOCYTES # (AUTO) 0.8 10^3/uL (0.0-1.0); NEUTROPHILS # (AUTO) 5.1 10^3/uL (1.5-6.6); NEUTROPHILS % (AUTO) 60.8 %; PLT - PLATELET COUNT 224 10^3/uL (130-450); RED BLOOD COUNT 4.67 10^6/uL (4.20-5.40); WHITE BLOOD COUNT 8.4 x10^3/uL (4.8-10.8)
[2021-08-22 16:41] LABS: ALBUMIN 3.9 g/dL (3.2-5.5); BILIRUBIN,TOTAL 0.6 mg/dL (0.2-1.0); CALCIUM 9.4 mg/dL (8.5-10.3); CREATININE 0.8 mg/dL (0.4-1.0); POTASSIUM 3.3 mmol/L (3.5-5.0)
[2021-08-22] MEDS ORDERED: ONDANSETRON 4 MG/2 ML VIAL IVP PRN (17:23)
[2021-08-22] MEDS ORDERED: SODIUM CHLORIDE FLUSH 0.9% 10 ML SYRINGE IVP PRN (17:23)
[2021-08-22] MEDS ORDERED: POTASSIUM CHLORIDE 20 MEQ TABLET PO STA (17:29)
[2021-08-22] MEDS ORDERED: lisinopriL 5 MG TABLET PO SCH (17:33)
[2021-08-22] MEDS ORDERED: amLODIPine 5 MG TABLET PO SCH (17:35)
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
[2021-08-22] MEDS ORDERED: SODIUM CHLORIDE 0.9% 1,000 ML IV SCH (18:00)
[2021-08-22] MEDS ORDERED: hydrALAZINE INJ 20 MG/ML VIAL IVP PRN (18:17)
[2021-08-22] MEDS: SODIUM CHLORIDE 0.9% 1,000 ML IV SCH (18:28)
[2021-08-22] MEDS ORDERED: clonazePAM 0.5 MG TABLET PO PRN (19:11)
[2021-08-22] MEDS ORDERED: clonazePAM 0.5 MG TABLET PO SCH (20:00)
[2021-08-22] MEDS ORDERED: OLANZapine ODT 5 MG TABLET TL PRN (20:00)
[2021-08-23] MEDS: SODIUM CHLORIDE FLUSH 0.9% 10 ML SYRINGE IVP SCH ×3 (00:59→16:59)
[2021-08-23 05:12] LABS: BASOPHILS # (AUTO) 0.1 10^3/uL (0.0-0.1); EOSINOPHILS # (AUTO) 0.1 10^3/uL (0.0-0.7); EOSINOPHILS % (AUTO) 1.1 %; HCT - HEMATOCRIT 45.9 % (37.0-47.0); HGB - HEMOGLOBIN 15.4 g/dL (12.0-16.0); LYMPHOCYTES % (AUTO) 21.1 %; MEAN CORPUSCULAR HEMOGLOBIN 31.2 pg (27.0-31.0); MEAN CORPUSCULAR HGB CONC 33.6 g/dL (32.0-36.0); MEAN CORPUSCULAR VOLUME 93.1 fL (81.0-99.0); MEAN PLATELET VOLUME 11.4 fL (7.9-10.8); MONOCYTES # (AUTO) 0.8 10^3/uL (0.0-1.0); MONOCYTES % (AUTO) 8.4 %; NEUTROPHILS # (AUTO) 6.5 10^3/uL (1.5-6.6); NEUTROPHILS % (AUTO) 68.1 %; PLT - PLATELET COUNT 260 10^3/uL (130-450); RED BLOOD COUNT 4.93 10^6/uL (4.20-5.40); RED CELL DISTRIBUTION WIDTH 13.1 % (12.0-15.0); WHITE BLOOD COUNT 9.5 x10^3/uL (4.8-10.8)
[2021-08-23 05:25] LABS: CALCIUM 9.4 mg/dL (8.5-10.3); CREATININE 0.8 mg/dL (0.4-1.0); POTASSIUM 3.5 mmol/L (3.5-5.0)
[2021-08-23] MEDS: ACETAMINOPHEN 325 MG TABLET PO PRN (06:24)
[2021-08-23] MEDS: GABAPENTIN 100 MG CAPSULE PO SCH ×3 (07:56→21:11)
[2021-08-23] MEDS: AMITRIPTYLINE 25 MG TABLET PO SCH ×2 (07:56→21:11)
[2021-08-23] MEDS: lisinopriL 5 MG TABLET PO SCH (07:56)
[2021-08-23] MEDS: amLODIPine 5 MG TABLET PO SCH (07:56)
[2021-08-23] MEDS: SACCHAROMYCES BOULARDII 250 MG CAPSULE PO SCH ×2 (07:58→16:58)
[2021-08-23] MEDS: METOPROLOL SUCCINATE 25 MG TABLET PO SCH (07:58)
[2021-08-23] MEDS: ENOXAPARIN 40 MG/0.4 ML SYRINGE SUBQ SCH (07:58)
[2021-08-23] MEDS ORDERED: cefTRIAXone 1 GM in SODIUM CHLORIDE 0.9% MINIBAG 100 ML IV SCH (09:00)
[2021-08-23] MEDS ORDERED: METOPROLOL SUCCINATE 25 MG TABLET PO SCH (09:00)
[2021-08-23] MEDS ORDERED: ASPIRIN CHEW 81 MG TABLET PO SCH (09:00)
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
[2021-08-23] MEDS: SODIUM CHLORIDE 0.9% 1,000 ML IV SCH ×2 (10:58→20:37)
--- NOTE | 2021-08-23 12:16 | PHARMACY PROGRESS NOTE ---
- Best Possible Medication History Admit Date and Time: 08/23/21 1007 Processed by: Pharmacy Medication History completed: Yes Secondary Source(s): Physician records, Pharmacy records, Insurance records As the person ultimately responsible for medication therapy, providers are able to order a medication from an existing home medication list in [facility] via the "Reconcile Routine" prior to Confirmation of that medication by product support specialist. Such practice is discouraged except when the physician, in their clinical judgment, deems that a medical need exists for a medication without regard to previous use.
[2021-08-23] MEDS ORDERED: clonazePAM 0.5 MG TABLET PO PRN (14:05)
[2021-08-23] MEDS ORDERED: clonazePAM 0.5 MG TABLET PO SCH (16:00)
[2021-08-24] MEDS: SODIUM CHLORIDE FLUSH 0.9% 10 ML SYRINGE IVP SCH ×3 (01:52→17:14)
[2021-08-24 05:52] LABS: BASOPHILS # (AUTO) 0.1 10^3/uL (0.0-0.1); BASOPHILS % (AUTO) 0.7 %; EOSINOPHILS # (AUTO) 0.2 10^3/uL (0.0-0.7); EOSINOPHILS % (AUTO) 1.7 %; HCT - HEMATOCRIT 43.1 % (37.0-47.0); LYMPHOCYTES # (AUTO) 2.2 10^3/uL (1.5-3.5); LYMPHOCYTES % (AUTO) 22.6 %; MEAN CORPUSCULAR HEMOGLOBIN 31.5 pg (27.0-31.0); MEAN CORPUSCULAR HGB CONC 32.5 g/dL (32.0-36.0); MEAN CORPUSCULAR VOLUME 96.9 fL (81.0-99.0); MEAN PLATELET VOLUME 11.3 fL (7.9-10.8); MONOCYTES # (AUTO) 0.8 10^3/uL (0.0-1.0); MONOCYTES % (AUTO) 8.5 %; NEUTROPHILS # (AUTO) 6.5 10^3/uL (1.5-6.6); NEUTROPHILS % (AUTO) 66.2 %; PLT - PLATELET COUNT 227 10^3/uL (130-450); RED BLOOD COUNT 4.45 10^6/uL (4.20-5.40); RED CELL DISTRIBUTION WIDTH 13.2 % (12.0-15.0); WHITE BLOOD COUNT 9.9 x10^3/uL (4.8-10.8)
[2021-08-24 05:59] LABS: POTASSIUM 3.6 mmol/L (3.5-5.0)
[2021-08-24] MEDS: GABAPENTIN 100 MG CAPSULE PO SCH ×3 (06:33→21:23)
[2021-08-24] MEDS: amLODIPine 5 MG TABLET PO SCH (09:25)
[2021-08-24] MEDS: SACCHAROMYCES BOULARDII 250 MG CAPSULE PO SCH ×2 (09:25→17:12)
[2021-08-24] MEDS: lisinopriL 5 MG TABLET PO SCH (09:26)
[2021-08-24] MEDS: ENOXAPARIN 40 MG/0.4 ML SYRINGE SUBQ SCH (09:26)
[2021-08-24] MEDS: METOPROLOL SUCCINATE 25 MG TABLET PO SCH (09:26)
[2021-08-24] MEDS: cephALEXin 250 MG CAPSULE PO SCH ×3 (10:28→17:42)
[2021-08-24] MEDS: ACETAMINOPHEN 325 MG TABLET PO PRN (11:51)
--- NOTE | 2021-08-24 13:03 | PROVIDER PROGRESS NOTE ---
Subjective - Prog Note Date Prog Note Date: 08/24/21 Prog Note Time: 13:00 - Subjective Subjective: She is back to hallucinating. Having ongoing conversation with someone in the room. She will not tell me who it is. But she is very angry with him and tells me that "they are with the devil and they are evil". She makes statements along the lines of "do not get anywhere near me or I will have at you and you will see". She is speaking to the hallucination in the room. She keeps on pulling off her sheets. She has disrobed and is naked and now only has on a diaper. We can keep an IV in place. I have asked for DCR to be involved again. Other than her hallucinations and paranoia, there is no new events for this unfortunate female. There is no fever, vitals are stable. No cough. She is eating anywhere between 25 to 75% of her meals. She is having urinary retention but refuses to let us put in a straight cath. Current Medications - Current Medications Current Medications: Active Medications Acetaminophen (Acetaminophen 325 Mg Tablet) 650 mg PO Q4HR PRN PRN Reason: Pain 1 to 4, or Fever Last Admin: 08/24/21 11:51 Dose: 650 mg Amitriptyline HCl (Amitriptyline 25 Mg Tablet) 75 mg PO QPM [facility] Last Admin: 08/23/21 21:11 Dose: 75 mg Amlodipine Besylate (Amlodipine 5 Mg Tablet) 10 mg PO DAILY [facility] Last Admin: 08/24/21 09:25 Dose: 10 mg Cephalexin (Cephalexin 250 Mg Capsule) 500 mg PO QID [facility] Stop: 08/24/21 18:01 Last Admin: 08/24/21 10:28 Dose: 500 mg Clonazepam (Clonazepam 0.5 Mg Tablet) 0.5 mg PO TID PRN PRN Reason: Anxiety Enoxaparin Sodium (Enoxaparin 40 Mg/0.4 Ml Syringe) 40 mg SUBQ DAILY [facility] Last Admin: 08/24/21 09:26 Dose: 40 mg Gabapentin (Gabapentin 100 Mg Capsule) 200 mg PO TID [facility] Last Admin: 08/24/21 06:33 Dose: 200 mg Hydralazine HCl (Hydralazine Inj 20 Mg/Ml Vial) 10 mg IVP Q4H PRN PRN Reason: Hypertensive Emergency Last Admin: 08/22/21 19:00 Dose: 10 mg Lisinopril (Lisinopril 5 Mg Tablet) 5 mg PO DAILY [facility] Last Admin: 08/24/21 09:26 Dose: 5 mg Metoprolol Succinate (Metoprolol Succinate 25 Mg Tablet) 50 mg PO DAILY [facility] Last Admin: 08/24/21 09:26 Dose: 50 mg Ondansetron HCl (Ondansetron 4 Mg/2 Ml Vial) 4 mg IVP Q6HR PRN PRN Reason: Nausea / Vomiting Saccharomyces Boulardii (Saccharomyces Boulardii 250 Mg Capsule) 250 mg PO BIDWM [facility] Last Admin: 08/24/21 09:25 Dose: 250 mg Sodium Chloride (Sodium Chloride Flush 0.9% 10 Ml Syringe) 10 ml IVP PRN PRN PRN Reason: NEEDED PER PROVIDER ORDERS Sodium Chloride (Sodium Chloride Flush 0.9% 10 Ml Syringe) 10 ml IVP 0100,0900,1700 [facility] Last Admin: 08/24/21 10:19 Dose: Not Given Amitriptyline HCl 75 mg PO HS 08/28/12 Gabapentin [Neurontin] 200 mg PO TID 08/28/12 amLODIPine [Norvasc] 10 mg PO DAILY 08/28/12 Nitrofurantoin [Macrobid] 100 mg PO HS 08/22/21 clonazePAM [Clonazepam] 0.5 mg PO TID PRN 08/22/21 Metoprolol Succinate [Toprol Xl] 50 mg PO DAILY 08/23/21 Objective - Vital Signs/Intake & Output Reviewed Vital Signs: Yes Vital Signs: Vital Signs x48h Temp Pulse Resp BP Pulse Ox 08/24/21 12:44 110/51 L 08/24/21 08:15 37.2 C 86 16 138/63 H 96 Intake & Output: Intake & Output 08/21/21 08/22/21 08/23/21 08/24/21 23:59 23:59 23:59 23:59 Intake Total 252.621 7059.352 1420 Output Total 100 1000 Balance 220.142 4897.352 420 - Objective General Appearance: positive: Alert, Other (Elderly, agitated female, unable to tell me where she is, why she is here, and insisting on speaking to the "evil person in the room" which is a hallucination) Eyes Bilateral: positive: PERRL, EOMI ENT: positive: Pharynx nml Neck: positive: No JVD Respiratory: positive: No respiratory distress. negative: Wheezes, Rales, Rhonchi Cardiovascular: positive: Regular rate & rhythm. negative: Gallop/S4, Friction rub Abdomen: positive: No organomegaly, Nml bowel sounds, No distention, Other (Mild tenderness over the bladder area where she found that me and then removed my hands and said stop doing that) Skin: positive: Warm, Dry. negative: Pallor Extremities: positive: Non-tender, Full ROM, No pedal edema Neurologic/Psychiatric: positive: CN's nml (2-12), Motor nml (Purposeful movement using her arms and hands. Able to sit up in bed. Moving her legs around trying to get out of bed.), Disoriented to person, Disoriented to place, Disoriented to time - Lab Results Fish Bones: 08/24/21 05:44 08/24/21 05:44 Other Labs: Lab Results x24hrs 08/24/21 08/24/21 Range/Units 05:44 05:44 WBC 9.9 (4.8-10.8) x10^3/uL RBC 4.45 (4.20-5.40) 10^6/uL Hgb 14.0 (12.0-16.0) g/dL Hct 43.1 (37.0-47.0) % MCV 96.9 (81.0-99.0) fL MCH 31.5 H (27.0-31.0) pg MCHC 32.5 (32.0-36.0) g/dL RDW 13.2 (12.0-15.0) % Plt Count 227 (130-450) 10^3/uL MPV 11.3 H (7.9-10.8) fL Neut # (Auto) 6.5 (1.5-6.6) 10^3/uL Lymph # (Auto) 2.2 (1.5-3.5) 10^3/uL [place] # (Auto) 0.8 (0.0-1.0) 10^3/uL Eos # (Auto) 0.2 (0.0-0.7) 10^3/uL Baso # (Auto) 0.1 (0.0-0.1) 10^3/uL Absolute Nucleated RBC 0.00 x10^3/uL Nucleated RBC % 0.0 /100WBC Sodium 143 (135-145) mmol/L Potassium 3.6 (3.5-5.0) mmol/L Chloride 110 (101-111) mmol/L Carbon Dioxide 26 (21-32) mmol/L Anion Gap 7.0 (6-13) BUN 19 (6-20) mg/dL Creatinine 1.0 (0.4-1.0) mg/dL Estimated GFR (MDRD) 53 L (>89) Glucose 111 H (70-100) mg/dL Calcium 9.0 (8.5-10.3) mg/dL ABX Reporting Has patient been on IV antibiotics over the past 48 hours?: Yes Assessment/Plan - Problem List (1) Hallucinations Impression: When she was admitted the story we got is a lady who has been gradually deteriorating with guards to grasp on reality since April. Is been attributed to changes in medications but even with the resumption of her medications, benzodiazepines, she is still altered. CT of the head was negative on admission. Her tox screen was positive for tricyclics but negative for everything else. Her electrolytes are not deranged. CBC is normal. So we have come to the conclusion that she is having some type of mental health episode that is acute and not her norm. This acute exacerbation seems to be superimposed on a chronic indolent process that may have been started several months ago. She does have a hx of PTSD Plan: DCR for consultation. Barriers to transfer will be her age and needing a cane or walker (which she tends to use as weapons). I will also obtain a telemetry psych evaluation if possible. We ordered it 08/22 and not followed up on. At this point in time she is without any acute medical illness that we can treat. This seems to be strictly psychiatric. (2) HTN (hypertension) Conclusion/Plan: Blood pressure is controlled. On admission she was 106 systolic. Since hydration, food, etc. her systolic is now 136 today. She is on amlodipine daily. As well as her metoprolol. Hydralazine is added as as needed for hypertension
[2021-08-24] MEDS ORDERED: OLANZapine 10 MG VIAL IM ONE (17:16)
[2021-08-24] MEDS: OLANZapine 10 MG VIAL IM SCH (20:36)
[2021-08-24] MEDS: AMITRIPTYLINE 25 MG TABLET PO SCH (20:39)
[2021-08-24] MEDS ORDERED: LORazepam 1 MG TABLET PO PRN (21:50)
--- NOTE | 2021-08-24 22:03 | TELEPSYCH PHYS NOTE ---
Telepsych Consultation Note Consult: Name: Jennie MuroDOB: 1940 DateandTime: 08/25/2021 12:37:58 AM [facility] Length of consult: 30 min This evaluation was conducted via video telepsychiatry with the assistance of onsite staff Reason for consult: Re-eval Requested by: Dr Samuels Interval History: The patient is 81-year-old female with history of PTSD anxiety who presented to the ER via EMS due to visual hallucinations. The patient was previously seen by psychiatry two days ago. During that evaluation, the patient endorsed visual but not auditory hallucinations. The patient was delusional. She reported that her was dug up, came back to life, and was harassing the patient .The patient told the ER doctor and psychiatrist that she had missed doses of Klonopin and had not been on any 4-5 days prior to admission. A reevaluation was recommended today as a patient continues to experience visual hallucinations. When seen by psychiatry, the patient was hyper verbal, rambling, and agitated. The patient was pointing at people in the room who weren't there. The patient stated that she was surrounded by murderers. The patient thought that the nurse was her grandmother. The patient was oriented only to self. She did not know the year or month and believed that she was in someone's basement which he called the "war room." Medications & Freq: Wgviiv30 mg 2 PM, Klonopin 0.5 mg PO TID PRN anxiety, Neurontin 200 mg PO TID, olanzapine 2.5 mg IM BID. See chart for complete list of nonpsychiatric meds Mental Status Exam: Appearance and Attire: Psychomotor agitation:Psychomotor agitation Attitude and behavior:Agitated, Restless, Guarded, Suspicious, Responding to internal stimuli , Hostile Speech:Rapid, Pressured Mood:Dysthymic, Manic, Labile Affect:Full range of affect Thought process:Tangential, Vague, Loose or idiosyncratic associations, Flight of ideas Thought content:Paranoia, Delusions Perception:Visual hallucinations Intel:Average Abstract:Perseverative Language:unable to assess Orientation:Oriented to person Sense:Distractible Knowledge: Memory:Impaired to Immediate recall, Impaired to Recent recall (3 min), Impaired to Remote recall, Impaired to Executive function, Unable to assess Insight:Severe impairment Judgement:Severe impairment Gait:Unsteady Impression/Risk Assessment: Current Suicide Risk Elevated?No Current Violence Risk Elevated?No Issues with ability to care for self?Yes Summary: The patient is a 81-year-old female who presented to the ER and a confused state after going days without Klonopin. Patient has continued to worsen during her time on the medical unit and is likely experiencing delirium secondary to benzo withdrawal. The patient should be restarted on a long acting as olanzapine which can be slowly tapered off to minimize symptoms. 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 Consider decreasing dose in 2-3 days. Reconsult psychiatry in 2 days. Patient psychotic? yes Therapy: supportive Follow up needed while in the hospital?: Discussed plan with onsite steam clothes press operator: Who Other: MD Berenice Monroy [facility] List names and roles of persons who participated in consult: Dale Menezes MD. [facility]
[2021-08-25] MEDS: SODIUM CHLORIDE FLUSH 0.9% 10 ML SYRINGE IVP SCH ×3 (01:11→17:02)
[2021-08-25 05:33] LABS: BASOPHILS # (AUTO) 0.1 10^3/uL (0.0-0.1); BASOPHILS % (AUTO) 1.3 %; EOSINOPHILS # (AUTO) 0.4 10^3/uL (0.0-0.7); EOSINOPHILS % (AUTO) 5.8 %; HCT - HEMATOCRIT 43.4 % (37.0-47.0); HGB - HEMOGLOBIN 14.3 g/dL (12.0-16.0); LYMPHOCYTES % (AUTO) 33.3 %; MEAN CORPUSCULAR HEMOGLOBIN 31.6 pg (27.0-31.0); MEAN CORPUSCULAR HGB CONC 32.9 g/dL (32.0-36.0); MEAN PLATELET VOLUME 11.2 fL (7.9-10.8); MONOCYTES # (AUTO) 0.5 10^3/uL (0.0-1.0); MONOCYTES % (AUTO) 8.9 %; NEUTROPHILS # (AUTO) 3.1 10^3/uL (1.5-6.6); NEUTROPHILS % (AUTO) 50.5 %; PLT - PLATELET COUNT 191 10^3/uL (130-450); RED BLOOD COUNT 4.52 10^6/uL (4.20-5.40); RED CELL DISTRIBUTION WIDTH 12.9 % (12.0-15.0)
[2021-08-25 05:51] LABS: CREATININE 0.8 mg/dL (0.4-1.0); POTASSIUM 3.5 mmol/L (3.5-5.0)
[2021-08-25] MEDS: GABAPENTIN 100 MG CAPSULE PO SCH ×3 (07:06→21:05)
[2021-08-25] MEDS ORDERED: SENNA 8.6 MG TABLET PO PRN (08:04)
[2021-08-25] MEDS ORDERED: DOCUSATE SODIUM 250 MG CAPSULE PO PRN (08:04)
[2021-08-25] MEDS: METOPROLOL SUCCINATE 25 MG TABLET PO SCH (08:21)
[2021-08-25] MEDS: polyethylene glycoL 3350 17 GM PACKET PO SCH (08:21)
[2021-08-25] MEDS: lisinopriL 5 MG TABLET PO SCH (08:21)
[2021-08-25] MEDS: SACCHAROMYCES BOULARDII 250 MG CAPSULE PO SCH ×2 (08:21→17:02)
[2021-08-25] MEDS: ENOXAPARIN 40 MG/0.4 ML SYRINGE SUBQ SCH (08:22)
[2021-08-25] MEDS: amLODIPine 5 MG TABLET PO SCH (08:22)
[2021-08-25] MEDS: clonazePAM 0.5 MG TABLET PO SCH ×2 (08:22→21:05)
[2021-08-25] MEDS: OLANZapine 10 MG VIAL IM SCH (08:22)
--- NOTE | 2021-08-25 08:49 | PROVIDER PROGRESS NOTE ---
Subjective - Prog Note Date Prog Note Date: 08/25/21 Prog Note Time: 08:49 - Subjective Subjective: Yesterday the patient was naked in her bed, had pulled off all the sheets, was pulling at IV lines, fidgeting with the sheets, and was only in her depends. Angry and speaking to her . Calling him madiha, son of Pedro. We obtained a reevaluation and psychiatry still feels that she is having delirium secondary to benzo withdrawal. They want her started on long-acting benzo and then slowly tapered off to minimize symptoms. Son has come to visit her and he is really distressed. But his distress has to do with the fact that he is frightened about taking her home to take care of her. He keeps on repeating "I cannot take her home like this". I explained to him that we have no intention of discharging her until she is safe. If he cannot take care of her that is okay. We will take that into account. He does live with her. It is her apartment. I explained to him that he may have take that into account as well and that if she ends up being permanent placed somewhere he will lose the place that he is living in. Or make arrangements to take over the rent for himself. Current Medications - Current Medications Current Medications: Active Medications Acetaminophen (Acetaminophen 325 Mg Tablet) 650 mg PO Q4HR PRN PRN Reason: Pain 1 to 4, or Fever Last Admin: 08/24/21 11:51 Dose: 650 mg Amitriptyline HCl (Amitriptyline 25 Mg Tablet) 75 mg PO QPM [facility] Last Admin: 08/24/21 20:39 Dose: 75 mg Amlodipine Besylate (Amlodipine 5 Mg Tablet) 10 mg PO DAILY [facility] Last Admin: 08/25/21 08:22 Dose: 10 mg Clonazepam (Clonazepam 0.5 Mg Tablet) 0.5 mg PO BID [facility] Last Admin: 08/25/21 08:22 Dose: 0.5 mg Docusate Sodium (Docusate Sodium 250 Mg Capsule) 250 - 500 mg PO DAILY PRN PRN Reason: Constipation Stop: 08/28/21 08:03 Enoxaparin Sodium (Enoxaparin 40 Mg/0.4 Ml Syringe) 40 mg SUBQ DAILY [facility] Last Admin: 08/25/21 08:22 Dose: 40 mg Gabapentin (Gabapentin 100 Mg Capsule) 200 mg PO TID [facility] Last Admin: 08/25/21 07:06 Dose: 200 mg Hydralazine HCl (Hydralazine Inj 20 Mg/Ml Vial) 10 mg IVP Q4H PRN PRN Reason: Hypertensive Emergency Last Admin: 08/22/21 19:00 Dose: 10 mg Lisinopril (Lisinopril 5 Mg Tablet) 10 mg PO DAILY [facility] Lorazepam (Lorazepam 1 Mg Tablet) 1 mg PO Q1H PRN; Protocol PRN Reason: CIWA > 8 Metoprolol Succinate (Metoprolol Succinate 25 Mg Tablet) 50 mg PO DAILY [facility] Last Admin: 08/25/21 08:21 Dose: 50 mg Olanzapine (Olanzapine Odt 5 Mg Tablet) 2.5 mg TL BID [facility] Ondansetron HCl (Ondansetron 4 Mg/2 Ml Vial) 4 mg IVP Q6HR PRN PRN Reason: Nausea / Vomiting Polyethylene Glycol (Polyethylene Glycol 3350 17 Gm Packet) 17 gm PO DAILY [facility] Last Admin: 08/25/21 08:21 Dose: 17 gm Saccharomyces Boulardii (Saccharomyces Boulardii 250 Mg Capsule) 250 mg PO BIDWM [facility] Last Admin: 08/25/21 08:21 Dose: 250 mg Senna (Senna 8.6 Mg Tablet) 8.6 - 17.2 mg PO DAILY PRN PRN Reason: Constipation Last Admin: 08/25/21 08:21 Dose: 17.2 mg Sodium Chloride (Sodium Chloride Flush 0.9% 10 Ml Syringe) 10 ml IVP PRN PRN PRN Reason: NEEDED PER PROVIDER ORDERS Sodium Chloride (Sodium Chloride Flush 0.9% 10 Ml Syringe) 10 ml IVP 0100,0900,1700 [facility] Last Admin: 08/25/21 08:23 Dose: Not Given Amitriptyline HCl 75 mg PO HS 08/28/12 Gabapentin [Neurontin] 200 mg PO TID 08/28/12 amLODIPine [Norvasc] 10 mg PO DAILY 08/28/12 Nitrofurantoin [Macrobid] 100 mg PO HS 08/22/21 clonazePAM [Clonazepam] 0.5 mg PO TID PRN 08/22/21 Metoprolol Succinate [Toprol Xl] 50 mg PO DAILY 08/23/21 Objective - Vital Signs/Intake & Output Reviewed Vital Signs: Yes Vital Signs: Vital Signs x48h Temp Pulse Resp BP Pulse Ox 08/25/21 08:08 36.5 C 74 19 143/76 H 97 08/25/21 06:10 36.9 C 80 18 153/69 H 95 Intake & Output: Intake & Output 08/22/21 08/23/21 08/24/21 08/25/21 23:59 23:59 23:59 23:59 Intake Total 460.244 3874.352 1720 730 Output Total 100 2700 Balance 356.534 0983.352 -980 730 - Objective General Appearance: positive: No acute distress, Alert, Other (Oriented to plac e. However still delusional, paranoid, hallucinating. Behavior is just more easily manageable today. Able to be prompted and persuaded. Keeping her clothes on. We have stopped all IVs so she can stop pulling on them) Eyes Bilateral: positive: PERRL, EOMI ENT: positive: Pharynx nml Neck: positive: No JVD. negative: Stiff neck Respiratory: positive: No respiratory distress, Other (She had her electronic court recorder and her cigarette in the room. Very angry when we took them away from her when she tried to light up a cigarette. And we have put them away with patient safety items.). negative: Wheezes, Rales, Rhonchi Cardiovascular: positive: Regular rate & rhythm. negative: Gallop/S4 Abdomen: positive: Non-tender, No organomegaly, Nml bowel sounds, No distention, Other (Eating 25% and up to 100% of her food. She had 100% of breakfast. Last bowel movement was August 21.) Skin: positive: Warm, Dry Extremities: positive: Full ROM, Pedal edema (Around her ankles and feet) Neurologic/Psychiatric: positive: CN's nml (2-12), Motor nml (Wide-based shuffling gait. Standing on her own. Refuses a walker or a cane. Is able to feed herself.), Disoriented to person, Disoriented to time, Other (Hallucinations, delusions, paranoia remain) - Lab Results Fish Bones: 08/25/21 04:55 08/25/21 04:55 Other Labs: Lab Results x24hrs 08/25/21 08/25/21 Range/Units 04:55 04:55 WBC 6.0 (4.8-10.8) x10^3/uL RBC 4.52 (4.20-5.40) 10^6/uL Hgb 14.3 (12.0-16.0) g/dL Hct 43.4 (37.0-47.0) % MCV 96.0 (81.0-99.0) fL MCH 31.6 H (27.0-31.0) pg MCHC 32.9 (32.0-36.0) g/dL RDW 12.9 (12.0-15.0) % Plt Count 191 (130-450) 10^3/uL MPV 11.2 H (7.9-10.8) fL Neut # (Auto) 3.1 (1.5-6.6) 10^3/uL Lymph # (Auto) 2.0 (1.5-3.5) 10^3/uL [place] # (Auto) 0.5 (0.0-1.0) 10^3/uL Eos # (Auto) 0.4 (0.0-0.7) 10^3/uL Baso # (Auto) 0.1 (0.0-0.1) 10^3/uL Absolute Nucleated RBC 0.00 x10^3/uL Nucleated RBC % 0.0 /100WBC Sodium 142 (135-145) mmol/L Potassium 3.5 (3.5-5.0) mmol/L Chloride 107 (101-111) mmol/L Carbon Dioxide 25 (21-32) mmol/L Anion Gap 10.0 (6-13) BUN 12 (6-20) mg/dL Creatinine 0.8 (0.4-1.0) mg/dL Estimated GFR (MDRD) 69 L (>89) Glucose 105 H (70-100) mg/dL Calcium 9.0 (8.5-10.3) mg/dL ABX Reporting Has patient been on IV antibiotics over the past 48 hours?: No Assessment/Plan - Problem List (1) Benzodiazepine withdrawal with complication Impression: The main complication has been of hallucinations, paranoia, delusions. I started her on Zyprexa yesterday. There is a definite improvement. This morning she was talkative, able to tell me that she is in [place], and much, much less agitated than the last few days. Call me eating her breakfast. But when she speaks, and starts stringing together sentences, she is still hallu cinating, all over the place. However, overall, it is an improvement from yesterday. When she was first admitted we were looking for a cause for sudden deterioration in this elderly woman and latched onto the diagnosis of UTI causing delirium. However after 2 days of IV antibiotics, there is no improvement. The urinalysis was also proven to be contaminated. So we stopped IV antibiotics and gave her 1 day of oral antibiotics and her stopping antibiotics completely today. We do not think ED patient truly had a UTI but is completing therapy. Psychiatry would also like her Klonopin changed from 0.5 3 times daily as needed to 0.5 twice daily on a fixed schedule. Reduce that in 2 to 3 days. Reconsult in 2 to 3 days to see how she is doing. (2) Urinary retention with incomplete bladder emptying Impression: Yesterday she was having a postvoid residual of over 500 cc. Nursing did attempt a straight cath at my order but she was refusing it. She is on tricyclic antidepressants. Those can cause urinary retention and dry mouth. We will continue to monitor. Now that she is [place] today we will reassess her bladder. (3) HTN (hypertension) Impression: Between yesterday and today, blood pressure is ranging from 143 systolic and up to 153 systolic. She is on her amlodipine 10 mg daily, Zestril 5 mg daily, and as needed hydralazine with metoprolol XL 50 mg a day. Plan is to increase her Zestril to 10 mg daily Qualifiers: Hypertension type: primary hypertension Qualified Code(s): I10 - Essential (primary) hypertension
[2021-08-25] MEDS ORDERED: lisinopriL 5 MG TABLET PO ONE (10:00)
[2021-08-25] MEDS ORDERED: OLANZapine ODT 5 MG TABLET TL SCH (21:00)
[2021-08-25] MEDS: AMITRIPTYLINE 25 MG TABLET PO SCH (21:04)
[2021-08-25] MEDS: OLANZapine ODT 5 MG TABLET TL SCH (21:05)
[2021-08-26 05:23] LABS: BASOPHILS # (AUTO) 0.1 10^3/uL (0.0-0.1); BASOPHILS % (AUTO) 1.2 %; EOSINOPHILS # (AUTO) 0.3 10^3/uL (0.0-0.7); EOSINOPHILS % (AUTO) 4.4 %; HCT - HEMATOCRIT 42.6 % (37.0-47.0); HGB - HEMOGLOBIN 14.1 g/dL (12.0-16.0); LYMPHOCYTES # (AUTO) 1.6 10^3/uL (1.5-3.5); LYMPHOCYTES % (AUTO) 26.6 %; MEAN CORPUSCULAR HEMOGLOBIN 31.7 pg (27.0-31.0); MEAN CORPUSCULAR HGB CONC 33.1 g/dL (32.0-36.0); MEAN CORPUSCULAR VOLUME 95.7 fL (81.0-99.0); MEAN PLATELET VOLUME 11.8 fL (7.9-10.8); MONOCYTES # (AUTO) 0.6 10^3/uL (0.0-1.0); MONOCYTES % (AUTO) 9.3 %; NEUTROPHILS # (AUTO) 3.5 10^3/uL (1.5-6.6); NEUTROPHILS % (AUTO) 58.5 %; PLT - PLATELET COUNT 201 10^3/uL (130-450); RED BLOOD COUNT 4.45 10^6/uL (4.20-5.40); RED CELL DISTRIBUTION WIDTH 12.7 % (12.0-15.0); WHITE BLOOD COUNT 5.9 x10^3/uL (4.8-10.8)
[2021-08-26 05:32] LABS: CALCIUM 9.3 mg/dL (8.5-10.3); CREATININE 0.7 mg/dL (0.4-1.0); POTASSIUM 3.7 mmol/L (3.5-5.0)
[2021-08-26] MEDS: SODIUM CHLORIDE FLUSH 0.9% 10 ML SYRINGE IVP SCH ×2 (06:38→08:28)
[2021-08-26] MEDS: GABAPENTIN 100 MG CAPSULE PO SCH (06:58)
[2021-08-26 07:39] VITALS: BP 125/65
[2021-08-26] MEDS: clonazePAM 0.5 MG TABLET PO SCH (08:27)
[2021-08-26] MEDS: amLODIPine 5 MG TABLET PO SCH (08:27)
[2021-08-26] MEDS: METOPROLOL SUCCINATE 25 MG TABLET PO SCH (08:27)
[2021-08-26] MEDS: SACCHAROMYCES BOULARDII 250 MG CAPSULE PO SCH (08:27)
[2021-08-26] MEDS: polyethylene glycoL 3350 17 GM PACKET PO SCH (08:28)
[2021-08-26] MEDS: OLANZapine ODT 5 MG TABLET TL SCH (08:28)
[2021-08-26] MEDS: ENOXAPARIN 40 MG/0.4 ML SYRINGE SUBQ SCH (08:35)
--- NOTE | 2021-08-26 08:38 | Discharge Plan ---
Discharge Plan Problem Reviewed?: Yes Disposition: Home, Self Care Condition: Fair Prescriptions: lisinopriL [Zestril] 10 mg PO DAILY #30 tablet OLANZapine ODT [Zyprexa Odt] 5 mg TL BID #30 tablet Diet: Regular Activity Restrictions: Activity as Tolerated Shower Restrictions: No Driving Restrictions: Yes (no driving) Assistance Devices: Walker Health Concerns: You came to the hospital because you been having a personality change for a few months now. You are also starting to see things that are not there (apparent) and speak to someone who is not there (your ). In addition to the personality change and hallucinations you had fallen. Your family states they did not see you fall but they found you on the ground and you had her ear face up on the left cheekbone and left church. When you came to our emergency room you were delirious with hallucinations, paranoia, and delusions. It was ve ry difficult to control your behavior for the first few days. Your sons think that you have not been taking your medicines correctly and that would be specifically your Klonopin. Your sons feel that your personality has been changing for months now. We made sure you were not having a stroke. We made sure that your blood work was normal with regards to your liver, kidneys and that was fine. You do not have any infection except possibly a urinary tract infection. As such we think you went through withdrawal and that made you psychotic. We were able to eventually control your behavior with antipsychotic medications such as Zyprexa, and resuming your Klonopin. We initially treated you for a urinary tract infection but your urine culture came back negative so we stopped those antibiotics. You were seen by psychiatry twice via telemetry psychiatry consult. Plan of Treatment: 1. Please see your primary care provider in follow-up in the next 1 week. 2. We will be sending you home on the antipsychotic which is called Zyprexa. Take it twice a day for the next 2 days. Then go to once a day for a week. And then once every other day for a week. Then stop it. 3. Resume your Klonopin but only take it twice a day not 3 times a day. Care Goals: To remain at home without any further episodes of psychosis. Assessment: Son is at the bedside. Peter is the one that takes care of her and his brother. He and she agree that they will follow through with seeing her primary care provider and following through with the medications. No Smoking: If you smoke, Please STOP! Call for help. Follow-up with: Martin Wolf DO [Provider Admit Priv/Credential] -
[2021-08-26] MEDS ORDERED: lisinopriL 5 MG TABLET PO SCH (09:00)
--- NOTE | 2021-08-26 10:39 | DISCHARGE SUMMARY ---
"Discharge Summary Admit Date: 09/21/21 Discharge Date: 08/26/21 Discharging Provider: Yaz Samuels MD Primary Care Provider: Martin Wolf MD Code Status: Attempt Resuscitation Condition at Discharge: Fair Discharge Disposition: 01 Home, Self Care - DIAGNOSES Discharge Diagnoses with Status of Each Condition: 1. Benzodiazepine withdrawal with complications of delirium 2. Urinary retention with incomplete bladder emptying 3. Hypertension 4. Abnormal urinalysis, not a UTI - HPI History of Present Illness: This is a 81-years old female with a past medical history significant for hypertension, hyperlipidemia, kidney stone, depression, anxiety, panic attack, PTSD, claustrophobia, who present ER for Patient's Hallucination. Patient was brought by EMS due to hallucination. Patient is still hallucinated. She state her was coming back, he was not . She Reported her 3 years ago. She reported her security is not good. She also report some insurance company check her but when I ask what kind of her insurance to check her, she say it was complicated. She report she had a fall, hit her head, and she report headache, CT of her head was No acute intracranial abnormalities. Patient did report dysuria, And a urinalysis that show leukocyte esterase positive, WBC 6-10 high. ER already give patient Rocephin. Patient had a psychiatrist Consultation in the ER, psychiatrist believe Etiology of her presentation is unlikely secondary to her primary psychiatric thought disorder, current differential of Benzodiazepine withdrawal or medication interaction or misuse. pt was reported running out of her klonopin. 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 - Past Surgical History Ortho: reports: Other /FMD TEACHER: reports: Hysterectomy HEENT: reports: Tonsil/Adenoidectomy - CONSULTS | PROCEDURES Consultations: Telemetry psychiatry in the ER 08/22, and second consult 08/24 Procedures: Head CT without significant acute intracranial abnormality. Urine culture with greater than 100,000 colony per mL polymicrobial growth. [place] to be contaminant. - HOSPITAL COURSE Hospital Course: The patient was found to have an acute psychosis/delirium possibly due to urinary tract infection. She was treated with empiric antibiotic therapy and really did not improve. Urine culture came back as contaminated. She did not have a fever. She did not have an elevated white cell count. She was not incontinent of urine or complaining of urgency and frequency. And as such we felt that the abnormal urinalysis was a contaminant and not the cause of her altered mental status. In investigating further, the son states that she was having issues since last fall and he attributes her change in personality to the COVID-vaccine she received at that time. But he does endorse that she has been slowly changing. Hallucinating. Getting more belligerent. Wandering. But it culminated to the point that her hallucinations were so severe he was frightened. That is why she came to the emergency room. Telepsych felt that it was benzodiazepine withdrawal. Recommendations were made at the beginning of her stay and unfortunately were not followed Completely. With the second telemedicine evaluation, those recommendations were reiterated and I started Klonopin On a fixed schedule, not as needed, and Zyprexa Also on a fixed schedule, not as needed. Within 24 hours she was starting to clear and by 48 hours was back to baseline. She is aware that she was hallucinating. She even remembers what her hallucinations were about. She is aware that they are not real. Her other son would like to take her home. She currently lives with 1 son. He may have mental health issues of his own. And her older son, who is with her at discharge, takes care of of her and the other brother. He reiterates that he would like to take her home. As such I have given him instructions to do the Zyprexa twice a day for the next 2 days. Then go to once a day for a week. Once every other day for a week. Then stop. I would also like to keep her on Klonopin twice a day. Please see her primary care provider in follow-up. That is Dr. Wolf. At discharge temperature is 36.5. Heart rate 89. Blood pressure 125/65. Respirations 19. 98% on room air. She is in elderly woman who looks older than stated age. She has an abrasion/contusion that follows the orbital socket along the left presybeterian and down to the zygomatic arch. That is an abrasion that was present on admission and occurred with her fall at home. Pupils are equal, round, reactive. She is just finished eating 100% of her breakfast of Belgian toast and eggs. She is feeding herself. She is oriented to person, place, time. No JVD. Lungs are clear to auscultation and percussion. PMI normally placed. Regular rate and rhythm. The abdomen is soft, nontender, normal bowel sounds, no tenderness. She is able to go from a supine position to sitting to standing without any assist. Walks to the bathroom, on the toilet, gets back up and back to the bed without any assistance. No ataxia. Greater than 30 minutes was spent coordinating discharge. - ALLERGIES Allergies/Adverse Reactions: Allergies Allergy/AdvReac Type Severity Reaction Status Date / Time ibuprofen AdvReac Severe Nausea Verified 08/22/21 02:11 aspirin AdvReac Mild Nausea Verified 08/22/21 02:11 codeine AdvReac Mild Nausea Verified 08/22/21 02:11 - MEDICATIONS Home Medications: Ambulatory Orders Medication Instructions Recorded Confirmed Amitriptyline HCl 75 mg PO HS 08/28/12 08/22/21 Gabapentin [Neurontin] 200 mg PO TID 08/28/12 08/22/21 amLODIPine [Norvasc] 10 mg PO DAILY 08/28/12 08/22/21 Nitrofurantoin [Macrobid] 100 mg PO HS 08/22/21 08/22/21 Metoprolol Succinate [Toprol Xl] 50 mg PO DAILY 08/23/21 08/23/21 OLANZapine ODT [Zyprexa Odt] 5 mg TL BID #30 tablet 08/26/21 clonazePAM [Clonazepam] 0.5 mg PO BID #60 08/26/21 08/22/21 lisinopriL [Zestril] 10 mg PO DAILY #30 tablet 08/26/21 - LABS Result Diagrams: 08/26/21 04:34 08/26/21 04:34"
== END 2021-08-26 10:15 | disposition home or self-care (01) | DRG 897 ==
LOC: EDUNIT# → ED 01:56 → MS2 17:23 → OBSVTOIN 08-23 10:07
PROVIDERS: ADMIT Nurse Practitioner Gerontology; ATTEND Specialist
DX: F13.231 Sedative, hypnotic or anxiolytic dependence with withdrawal delirium (principal); R41.82 Altered mental status, unspecified; R33.9 Retention of urine, unspecified; R44.1 Visual hallucinations; N30.00 Acute cystitis without hematuria; R51.9 Headache, unspecified; S00.81XA Abrasion of other part of head, initial encounter; W19.XXXA Unspecified fall, initial encounter; Y92.099 Unspecified place in other non-institutional residence as the place of occurrence of the external cause; I10 Essential (primary) hypertension; Z20.822 Contact with and (suspected) exposure to COVID-19; Z79.52 Long term (current) use of systemic steroids; E78.00 Pure hypercholesterolemia, unspecified; F41.9 Anxiety disorder, unspecified; F32.A Depression, unspecified; F43.10 Post-traumatic stress disorder, unspecified; Z03.89 Encounter for observation for other suspected diseases and conditions ruled out; Z53.20 Procedure and treatment not carried out because of patient's decision for unspecified reasons; Z79.82 Long term (current) use of aspirin; Z79.899 Other long term (current) drug therapy; Z90.710 Acquired absence of both cervix and uterus; Z91.419 Personal history of unspecified adult abuse
CPT/HCPCS: 36415; 70450; 80048; 80053; 80306; 81001; 82607; 83690; 84443; 85025; 87086; 87635; 96365; 96366; 96372; 96375; 97162; 97166; 99283; 99285; A9270; G0427; G0480; J1650; Q3014; 80320; 81003

== ENCOUNTER 2022-01-18 15:51 | Outpatient (CLI) | payer MEDICARE, OTHER | END 2022-01-18 15:52 | disposition critical access hospital (66) | LOC: EMS 15:51 | DX: S99.911A Unspecified injury of right ankle, initial encounter (principal); W01.0XXA Fall on same level from slipping, tripping and stumbling without subsequent striking against object, initial encounter; Y92.003 Bedroom of unspecified non-institutional (private) residence as the place of occurrence of the external cause | CPT/HCPCS: A0425; A0429 ==

== ENCOUNTER 2022-01-18 16:09 | Observation (INO) | payer MEDICARE, OTHER ==
[2022-01-18] MEDS ORDERED: SODIUM CHLORIDE 0.9% 1,000 ML IV STA ×2 (16:27→17:51)
--- NOTE | 2022-01-18 16:32 | ED Physician Documentation ---
PD HPI LOWER EXT INJURY - Stated complaint Stated Complaint: GLF/ANKLE PX - Chief complaint Chief Complaint: Trauma Ext - History obtained from History obtained from: Patient, EMS - Additional information Additional information: The patient comes to the emergency department chief complaint right ankle pain and swelling after an injury 2 days ago. She states she was in her closet when she caught her foot on the edge of a liquor cabinet that is in her closet. She states she felt pops and snaps and as she fell to the floor. The patient states she twisted as she went down and sort of crumpled to the floor and did not really hurt herself anywhere else. She called for her adult son who lives with her and apparently is somewhat disabled. They tried to get her up off the floor but they could not and so the patient sent her son to the store to buy depends so that she would not urinate on herself. She laid on the floor for a total of 2 days while her son made sure she had fresh Depends and fluids to drink and finally, her older son called and told the younger son to call EMS and have the patient sent in here. Patient denies any rib pain, spinal pain, head injury, or hip pain. Her only complaint is that her right ankle hurts. No other complaints at this time. She states she has been urinating a lot. Review of Systems Ten Systems: 10 systems reviewed and negative Constitutional: reports: Reviewed and negative Eyes: reports: Reviewed and negative Ears: reports: Reviewed and negative Nose: reports: Reviewed and negative Throat: reports: Reviewed and negative Cardiac: reports: Reviewed and negative Respiratory: reports: Reviewed and negative GI: reports: Reviewed and negative : reports: Reviewed and negative Skin: reports: Reviewed and negative Musculoskeletal: reports: Joint pain, Joint swelling Neurologic: reports: Reviewed and negative Psychiatric: reports: Reviewed and negative Endocrine: reports: Reviewed and negative Immunocompromised: reports: Reviewed and negative PD PAST MEDICAL HISTORY - Past Medical History Cardiovascular: Hypertension, High cholesterol Respiratory: None Neuro: None Endocrine/Autoimmune: None GI: None PLANNER INTERN: None : Kidney stones HEENT: None Psych: Depression, Anxiety, Panic attacks, Post traumatic stress disorder, Claustrophobia Musculoskeletal: Other Derm: None - Past Surgical History Past Surgical History: Yes Ortho: Other /PLANNER INTERN: Hysterectomy HEENT: Tonsil/Adenoidectomy - Present Medications Home Medications: Ambulatory Orders Medication Instructions Recorded Confirmed Amitriptyline HCl 75 mg PO HS 08/28/12 01/18/22 Gabapentin [Neurontin] 200 mg PO TID 08/28/12 01/18/22 amLODIPine [Norvasc] 10 mg PO DAILY 08/28/12 01/18/22 Metoprolol Succinate [Toprol Xl] 50 mg PO DAILY 08/23/21 01/18/22 clonazePAM [Clonazepam] 0.5 mg PO TID 01/18/22 01/18/22 lisinopriL [Zestril] 5 mg PO DAILY 01/18/22 01/18/22 - Allergies Allergies/Adverse Reactions: Allergies Allergy/AdvReac Type Severity Reaction Status Date / Time ibuprofen AdvReac Severe Nausea Verified 01/18/22 16:29 aspirin AdvReac Mild Nausea Verified 01/18/22 16:29 codeine AdvReac Mild Nausea Verified 01/18/22 16:29 - Social History Does the pt smoke?: No Smoking Status: Never smoker Does the pt drink ETOH?: No Does the pt have substance abuse?: No - Immunizations Immunizations are current?: Yes - POLST Patient has POLST: No PD ED PE NORMAL - Vitals Vital signs reviewed: Yes - General General: Alert and oriented X 3, No acute distress, Well developed/nourished - HEENT HEENT: Atraumatic, PERRL, EOMI, Moist mucous membranes - Neck Neck: Supple, no meningeal sign, No bony TTP - Cardiac Cardiac: RRR, No murmur, Strong equal pulses - Respiratory Respiratory: No respiratory distress, Clear bilaterally - Abdomen Abdomen: Soft, Non tender, Non distended - Derm Derm: Warm and dry, Other (Contusion about medial malleolus right ankle) - Extremities Extremities: No deformity, Other (Marked edema right lower extremity with point tenderness over lateral malleolus, extending over dorsum of ankle and foot.) - Neuro Neuro: Alert and oriented X 3, 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, No motor deficit, No sensory deficit, Normal speech - Psych Psych: Normal mood, Normal affect Results - Vitals Vitals: Vital Signs - 24 hr 01/18/22 16:19 Temperature 37.4 C Heart Rate 108 H Respiratory 18 Rate Blood Pressure 138/51 H O2 Saturation 100 Oxygen O2 Source Room air - Labs Labs: Laboratory Tests 01/18/22 01/18/22 16:34 16:34 WBC 10.6 RBC 4.29 Hgb 13.5 Hct 40.6 MCV 94.6 MCH 31.5 H MCHC 33.3 RDW 13.3 Plt Count 242 MPV 11.0 H Neut # (Auto) 6.9 H Lymph # (Auto) 2.4 [place] # (Auto) 1.1 H Eos # (Auto) 0.1 Baso # (Auto) 0.1 Absolute Nucleated RBC 0.00 Nucleated RBC % 0.0 Sodium 139 Potassium 4.1 Chloride 105 Carbon Dioxide 27 Anion Gap 7.0 BUN 21 H Creatinine 0.9 Estimated GFR (MDRD) 60 L Glucose 99 Calcium 9.4 Total Bilirubin 0.8 AST 100 H ALT 66 H Alkaline Phosphatase 68 Total Creatine Kinase 1604 H* Total Protein 7.8 Albumin 3.5 Globulin 4.3 H Albumin/Globulin Ratio 0.8 L Lipase 38 PD MEDICAL DECISION MAKING - ED course Complexity details: reviewed results, re-evaluated patient, considered differential, d/w patient ED course: The patient was given IV fluids and worked up with labs and ankle x-ray. It is unclear why the patient and her son had opted to keep the patient on the floor for 2 days with Depends and fluids instead of calling EMS. The patient was still making urine, which was reassuring. The patient's CK was 1600, though her creatinine was 1.0. She was found to have a complex, trimalleolar fracture with shifting of the mortise. The patient had a large amount of edema and so any reduction was technically difficult but we did reduce as best as possible and placed the patient in a bulky Dow splint. She was given a milligram of Dilaudid for her discomfort. The patient was neurovascularly intact following splinting. Unfortunately, we did not have an orthopedic surgeon on-call tonight, though I have reached out by text to Dr. Escamilla, who is her community orthopedist and will next be on-call in 4 days. I am waiting to hear back. I spoken with Dr. Carolina, our hospitalist, who is willing to admit the patient as an observation for both pain management and rhabdomyolysis,. However, she would like to wait on admission finalization until we hear back from Dr. Jeremiah alvarenga so we know of some kind of plan for the patient's orthopedic issue. I am signing patient out to Dr. Mancuso, pending a conversation with Dr. Escamilla and final disposition. She is on her second liter of IV fluid.
[2022-01-18 16:40] LABS: BASOPHILS # (AUTO) 0.1 10^3/uL (0.0-0.1); BASOPHILS % (AUTO) 0.8 %; EOSINOPHILS # (AUTO) 0.1 10^3/uL (0.0-0.7); EOSINOPHILS % (AUTO) 0.5 %; HCT - HEMATOCRIT 40.6 % (37.0-47.0); HGB - HEMOGLOBIN 13.5 g/dL (12.0-16.0); LYMPHOCYTES # (AUTO) 2.4 10^3/uL (1.5-3.5); LYMPHOCYTES % (AUTO) 23.1 %; MEAN CORPUSCULAR HEMOGLOBIN 31.5 pg (27.0-31.0); MEAN CORPUSCULAR HGB CONC 33.3 g/dL (32.0-36.0); MEAN CORPUSCULAR VOLUME 94.6 fL (81.0-99.0); MONOCYTES # (AUTO) 1.1 10^3/uL (0.0-1.0); MONOCYTES % (AUTO) 10.4 %; NEUTROPHILS # (AUTO) 6.9 10^3/uL (1.5-6.6); NEUTROPHILS % (AUTO) 64.9 %; PLT - PLATELET COUNT 242 10^3/uL (130-450); RED BLOOD COUNT 4.29 10^6/uL (4.20-5.40); RED CELL DISTRIBUTION WIDTH 13.3 % (12.0-15.0); WHITE BLOOD COUNT 10.6 x10^3/uL (4.8-10.8)
[2022-01-18 17:02] LABS: ALBUMIN 3.5 g/dL (3.2-5.5); ALBUMIN/GLOBULIN RATIO 0.8 (1.0-2.2); BILIRUBIN,TOTAL 0.8 mg/dL (0.2-1.0); CALCIUM 9.4 mg/dL (8.5-10.3); CREATININE 0.9 mg/dL (0.4-1.0); POTASSIUM 4.1 mmol/L (3.5-5.0); TOTAL PROTEIN 7.8 g/dL (6.7-8.2)
[2022-01-18] MEDS ORDERED: HYDROmorphone 1 MG/ML CARPUJECT IVP STA (17:09)
--- NOTE | 2022-01-18 17:16 | XRAY Report ---
PROCEDURE: Ankle 3 View RT INDICATIONS: fall/injury/pain TECHNIQUE: 3 views of the ankle were acquired. COMPARISON: None FINDINGS: Bones: There is a displaced comminuted right trimalleolar fracture. The talar dome appears intact. Vi sualized calcaneus and tarsal bones appear intact. Soft tissues: There is diffuse soft tissue swelling and a tibiotalar joint effusion. IMPRESSION: Displaced comminuted trimalleolar fracture. Reviewed by: Humera Guajardo MD on 01/18/2022 5:14 PM PDT Approved by: Humera Guajardo MD on 01/18/2022 5:14 PM PDT Station ID: [id number]
--- NOTE | 2022-01-18 18:38 | XRAY Report ---
PROCEDURE: Ankle 2 View RT INDICATIONS: post-reduction/splint TECHNIQUE: 2 views of the ankle were acquired. COMPARISON: Same-day radiographs FINDINGS: Bones: Improved alignment of lateral malleoli are, medial malleolus, and posterior malleolus fracture s.. The ankle mortise appears more anatomic in alignment. Cast material obscures the limb. IMPRESSION: Reduction with improved alignment of trimalleolar fracture and the ankle mortise Reviewed by: Han Goldsmith MD on 01/18/2022 6:37 PM PDT Approved by: Han Goldsmith MD on 01/18/2022 6:37 PM PDT Station ID: [id number]
[2022-01-18 19:58] LABS: B. PARAPERTUSSIS- RESP PCR PAN NOT DETECTED; B. PERTUSSIS- RESP PCR PANEL NOT DETECTED; C. PNEUMONIAE- RESP PCR PANEL NOT DETECTED; CORONAVIRUS 229E-RESP PCR NOT DETECTED; CORONAVIRUS HKU1-RESP PCR NOT DETECTED; CORONAVIRUS NL63-RESP PCR NOT DETECTED; CORONAVIRUS OC43-RESP PCR NOT DETECTED; HUMAN METAPNEUMOVIRUS NOT DETECTED; INFLUENZA A- RESP PCR PANEL NOT DETECTED; INFLUENZA B - RESP PCR PANEL NOT DETECTED; M. PNEUMONIAE- RESP PCR PANEL NOT DETECTED; PARAINFLUENZA VIRUS 1 NOT DETECTED; PARAINFLUENZA VIRUS 2 NOT DETECTED; PARAINFLUENZA VIRUS 3 NOT DETECTED; PARAINFLUENZA VIRUS 4 NOT DETECTED; RHINOVIRUS/ENTEROVIRUS NOT DETECTED; RSV- RESP PCR PANEL NOT DETECTED; SARS-CoV-2 -RESP PCR PANEL NOT DETECTED
--- NOTE | 2022-01-18 20:27 | ED Physician Documentation ---
ED Addendum - Addendum Addendum: 01/18/22 20:[address] Joshi at shift change. Briefly this is a 81-year-old woman who fell and broke her ankle, bimalleolar fracture a couple of days ago and then laid on the floor for couple days and has developed mild rhabdomyolysis. We technically do not have orthopedics on-call, but Dr. Escamilla was gracious enough to take my call and review the images. He will see the patient in consultation and defers to medicine for admission. Hospitalist paged for admission at 8:26 PM. Diagnosis: 1. Right bimalleolar fracture 2. Rhabdomyolysis Condition: Stable Disposition: Place in observation for IV fluids and monitoring of rhabdomyolysis. 01/18/22 20:[address] Brown at this time for observation.
--- NOTE | 2022-01-18 21:22 | HISTORY & PHYSICAL EXAMINATION ---
Chief Complaint - Chief Complaint Chief Complaint: Mecahnical fall with inability to stand up History of Present Illness - Admitted From Admitted From:: Home - History Obtained From Records Reviewed: Yes History obtained from: ER MD and Patient Exam Limitations: Done via televideo, had to get assitance from RN and telestethoscope faulty - History of Present Illness HPI Comment/Other: The patient comes to the emergency department chief complaint right ankle pain and swelling after an injury 2 days ago. She states she was in her closet when she caught her foot on the edge of a liquor cabinet that is in her closet. She states she felt pops and snaps and as she fell to the floor. The patient states she twisted as she went down and sort of crumpled to the floor and did not really hurt herself anywhere else. She called for her adult son who lives with her and apparently is somewhat disabled. They tried to get her up off the floor but they could not and so the patient sent her son to the store to buy depends so that she would not urinate on herself. She laid on the floor for a total of 2 days while her son made sure she had fresh Depends and fluids to drink and finally, her older son called and told the younger son to call EMS and have the patient sent in here. Patient denies any rib pain, spinal pain, head injury, or hip pain. Her only complaint is that her right ankle hurts. No other complaints at this time. She states she has been urinating a lot. 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 : reports: Kidney stones HEENT: reports: None Psych: reports: Depression, Anxiety, Panic attacks, Post traumatic stress disorder, Claustrophobia Musculoskeletal: reports: Other Derm: reports: None MRSA Hx?: No - Past Surgical History Ortho: reports: Other /FLUME WORKER: reports: Hysterectomy HEENT: reports: Tonsil/Adenoidectomy - Family & Social History Family History Comment/Other: Given patient's hallucination, patient was unable to provide reliable family medical history Social History Notes: She reported she never smoked but she reported she had alcohol problem before - POLST Patient has POLST: No Meds/Allgy - Home Medications Home Medications: Ambulatory Orders Medication Instructions Recorded Confirmed Amitriptyline HCl 75 mg PO HS 08/28/12 01/18/22 Gabapentin [Neurontin] 200 mg PO TID 08/28/12 01/18/22 amLODIPine [Norvasc] 10 mg PO DAILY 08/28/12 01/18/22 Metoprolol Succinate [Toprol Xl] 50 mg PO DAILY 08/23/21 01/18/22 clonazePAM [Clonazepam] 0.5 mg PO TID 01/18/22 01/18/22 lisinopriL [Zestril] 5 mg PO DAILY 01/18/22 01/18/22 - Allergies Allergies/Adverse Reactions: Allergies Allergy/AdvReac Type Severity Reaction Status Date / Time ibuprofen AdvReac Severe Nausea Verified 01/18/22 16:29 aspirin AdvReac Mild Nausea Verified 01/18/22 16:29 codeine AdvReac Mild Nausea Verified 01/18/22 16:29 Review of Systems - Constitutional Constitutional: reports: Fatigue, Weakness - Musculoskeletal Musculoskeletal: reports: Limited range of motion, Joint pain Prior Level of Functionality: ADL with easily achiving 4 METS or work capacity Exam - Vital Signs Vital Signs: Vital Signs x48h Temp Pulse Resp BP Pulse Ox 01/18/22 19:40 37 C 88 17 122/56 L 100 01/18/22 18:09 87 17 128/55 L 99 01/18/22 16:19 37.4 C 108 H 18 138/51 H 100 - Physical Exam General Appearance: positive: No acute distress, Alert Eyes Bilateral: positive: Normal inspection, PERRL ENT: positive: Pharynx nml, No signs of dehydration Neck: positive: Nml inspection, No JVD Respiratory: positive: No respiratory distress, Breath sounds nml Cardiovascular: positive: Regular rate & rhythm Abdomen: positive: Non-tender, Nml bowel sounds Skin: positive: Color nml, No rash Extremities: positive: Other (Left ankle is tender) Neurologic/Psychiatric: positive: Oriented x3, CN's nml (2-12) Sepsis Event Note (H) - Evaluation Current Stage of Sepsis: Ruled out Conclusion/Plan - Problem List (1) Bimalleolar avulsion fracture of right ankle Conclusion/Plan: OOrtho consult, iv fluids, pain meds (2) Rhabdomyolysis Conclusion/Plan: IV hydration, repeat creatinine in am Qualifiers: Rhabdomyolysis type: traumatic Encounter type: initial encounter (3) Anxiety Conclusion/Plan: Continue home meds, at this time seems calm and comfortab le (4) Ankle sprain Conclusion/Plan: as above Qualifiers: Encounter type: initial encounter Involved ligament of ankle: calcaneofibular ligament Laterality: left Qualified Code(s): S93.412A - Sprain of calcaneofibular ligament of left ankle, initial encounter - Lab Results Fish Bones: 01/18/22 16:34 01/18/22 16:34 - Diagnostic Imaging Results Diagnostic Imaging Results: positive: Prelim report reviewed - EKG Results EKG Interpreted Independently: No
[2022-01-18] MEDS ORDERED: ACETAMINOPHEN 325 MG TABLET PO PRN (21:27)
[2022-01-18] MEDS ORDERED: MORPHINE 2 MG/ML CARPUJECT IVP PRN (21:27)
[2022-01-18] MEDS ORDERED: ONDANSETRON 4 MG/2 ML VIAL IVP PRN (21:27)
[2022-01-18] MEDS ORDERED: SODIUM CHLORIDE FLUSH 0.9% 10 ML SYRINGE IVP PRN (21:27)
[2022-01-18] MEDS ORDERED: AMITRIPTYLINE HCL 75 MG PO SCH (21:30)
[2022-01-18] MEDS ORDERED: AMITRIPTYLINE 25 MG TABLET PO SCH (22:00)
[2022-01-18] MEDS ORDERED: CLONAZEPAM 0.5 MG PO SCH (22:00)
[2022-01-18] MEDS: GABAPENTIN 100 MG CAPSULE PO SCH (22:32)
[2022-01-18] MEDS: clonazePAM 0.5 MG TABLET PO SCH (22:32)
[2022-01-18] MEDS: SODIUM CHLORIDE 0.9% 1,000 ML IV SCH (22:33)
[2022-01-18] MEDS: SODIUM CHLORIDE FLUSH 0.9% 10 ML SYRINGE IVP SCH (23:57)
[2022-01-19] MEDS: clonazePAM 0.5 MG TABLET PO SCH ×2 (06:54→14:08)
[2022-01-19] MEDS: GABAPENTIN 100 MG CAPSULE PO SCH ×2 (06:54→14:08)
[2022-01-19] MEDS: HYDROcod/ACETAM 5/325 MG TABLET PO PRN ×2 (07:03→16:01)
[2022-01-19] MEDS ORDERED: amLODIPine 5 MG TABLET PO SCH (09:00)
[2022-01-19] MEDS ORDERED: lisinopriL 5 MG TABLET PO SCH (09:00)
[2022-01-19] MEDS ORDERED: METOPROLOL SUCCINATE 50 MG TABLET PO SCH (09:00)
[2022-01-19] MEDS: SODIUM CHLORIDE 0.9% 1,000 ML IV SCH (09:02)
[2022-01-19] MEDS: SODIUM CHLORIDE FLUSH 0.9% 10 ML SYRINGE IVP SCH ×2 (11:15→16:36)
--- NOTE | 2022-01-19 12:49 | HISTORY & PHYSICAL EXAMINATION ---
HPI - History Obtained From History obtained from: Patient, Family Exam limitations: No limitations - History of Present Illness HPI Comment/Other: I was asked to see this patient that was admitted to the hospital service yesterday evening. She is 81 years old, relatively healthy and lives with a partially disabled son. The patient sustained an injury on 01/16/2022 when she was in the closet at home, caught her right foot on a Tamara basket, twisted her ankle and gradually fell to the floor. She felt at least 2 pops. She could not bear weight and could not be helped from the floor. Her son was able to provide her with fluids. She has another son that lives in the [facility] who called and requested ambulance to take her to the hospital which was done yesterday. Says she basically laid for close to 2 days or since injury at home on The floor. She is normally ambulatory without walking aid although she has a walker because she has a fall risk and has fractured her left wrist and left ankle in the past she had surgery for the left wrist but not the left ankle. Since admission, she had attempt at reduction of the Right ankle, placed in short leg fiberglass padded splint. She seems to be doing well with pain control. She denies any other areas of pain other than the right ankle. She is alert and oriented. She has a history of hypertension and elevated cholesterol. She has a history of anxiety/depression. She does not smoke or drink although she has in the past but has fully stopped several years ago. In the history obtained by other providers, it was stated that she tripped near a liquor cabinet but that is not correct. Her son from the [facility] and her [id number] are here at the bedside today. They plan on staying for least a week to help with care of the mother. I spoke to our hospitalist, who Suggested admission on observation basis the patient for social reasons, Ankle fracture and rhabdomyolysis. However, the rhabdomyolysis was not felt to be severe and apparently is doing well According to our hospitalist. 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 PLASTER: positive: None : positive: Kidney stones HEENT: positive: None Psych: positive: Depression, Anxiety, Panic attacks, Post traumatic stress disorder, Claustrophobia Musculoskeletal: positive: Other Derm: positive: None MRSA Hx?: No - Past Surgical History Ortho: positive: Other /MODEL MAKER PLASTER: positive: Hysterectomy HEENT: positive: Tonsil/Adenoidectomy Social & Family Hx - Social History Does the pt smoke?: No Smoking Status: Never smoker Does the pt drink ETOH?: No Does the pt have substance abuse?: No - POLST Patient has POLST: No Meds/Allgy - Home Medications Home Medications: Ambulatory Orders Medication Instructions Recorded Confirmed Amitriptyline HCl 75 mg PO HS 08/28/12 01/18/22 Gabapentin [Neurontin] 200 mg PO TID 08/28/12 01/18/22 amLODIPine [Norvasc] 10 mg PO DAILY 08/28/12 01/18/22 Metoprolol Succinate [Toprol Xl] 50 mg PO DAILY 08/23/21 01/18/22 clonazePAM [Clonazepam] 0.5 mg PO TID 01/18/22 01/18/22 lisinopriL [Zestril] 5 mg PO DAILY 01/18/22 01/18/22 - Allergies Allergies/Adverse Reactions: Allergies Allergy/AdvReac Type Severity Reaction Status Date / Time ibuprofen AdvReac Severe Nausea Verified 01/18/22 16:29 aspirin AdvReac Mild Nausea Verified 01/18/22 16:29 codeine AdvReac Mild Nausea Verified 01/18/22 16:29 Exam - Vital Signs Vital Signs: Vital Signs x48h Temp Pulse Resp BP Pulse Ox 01/19/22 07:38 37 C 97 20 138/51 H 97 01/19/22 05:27 36.7 C 97 18 135/53 H 100 - Physical Exam Comments/Other: The patient is alert and fully oriented, articulate. She has pain to the right ankle but is well controlled. She denies any other areas of pain. There is swelling and tenderness about the right ankle, skin is intact. She has good circulation to the right foot and ankle, no vascular compromise. The upper and lower extremities are otherwise normal except for right ankle. Results - Lab Results Fish Bones: 01/18/22 16:34 01/18/22 16:34 Other Lab Results: Lab Results x24hrs 01/18/22 01/18/22 01/18/22 Range/Units 18:57 16:34 16:34 WBC 10.6 (4.8-10.8) x10^3/uL RBC 4.29 (4.20-5.40) 10^6/uL Hgb 13.5 (12.0-16.0) g/dL Hct 40.6 (37.0-47.0) % MCV 94.6 (81.0-99.0) fL MCH 31.5 H (27.0-31.0) pg MCHC 33.3 (32.0-36.0) g/dL RDW 13.3 (12.0-15.0) % Plt Count 242 (130-450) 10^3/uL MPV 11.0 H (7.9-10.8) fL Neut # (Auto) 6.9 H (1.5-6.6) 10^3/uL Lymph # (Auto) 2.4 (1.5-3.5) 10^3/uL [place] # (Auto) 1.1 H (0.0-1.0) 10^3/uL Eos # (Auto) 0.1 (0.0-0.7) 10^3/uL Baso # (Auto) 0.1 (0.0-0.1) 10^3/uL Absolute Nucleated RBC 0.00 x10^3/uL Nucleated RBC % 0.0 /100WBC Sodium 139 (135-145) mmol/L Potassium 4.1 (3.5-5.0) mmol/L Chloride 105 (101-111) mmol/L Carbon Dioxide 27 (21-32) mmol/L Anion Gap 7.0 (6-13) BUN 21 H (6-20) mg/dL Creatinine 0.9 (0.4-1.0) mg/dL Estimated GFR (MDRD) 60 L (>89) Glucose 99 (70-100) mg/dL Calcium 9.4 (8.5-10.3) mg/dL Total Bilirubin 0.8 (0.2-1.0) mg/dL AST 100 H (10-42) IU/L ALT 66 H (10-60) IU/L Alkaline Phosphatase 68 (42-121) IU/L Total Creatine Kinase 1604 H* (22-269) IU/L Total Protein 7.8 (6.7-8.2) g/dL Albumin 3.5 (3.2-5.5) g/dL Globulin 4.3 H (2.1-4.2) g/dL Albumin/Globulin Ratio 0.8 L (1.0-2.2) Lipase 38 (22-51) U/L Nasal Adenovirus (PCR) NOT DETECTED Nasal B. parapertussis DNA (PCR) NOT DETECTED Nasal Coronavir 229E PCR NOT DETECTED Nasal Coronavir HKU1 PCR NOT DETECTED Nasal Coronavir NL63 PCR NOT DETECTED Nasal Coronavir OC43 PCR NOT DETECTED Nasal Enterovir/Rhinovir PCR NOT DETECTED Nasal Influenza B PCR NOT DETECTED Nasal Influenza A PCR NOT DETECTED Nasal Parainfluen 1 PCR NOT DETECTED Nasal Parainfluen 2 PCR NOT DETECTED Nasal Parainfluen 3 PCR NOT DETECTED Nasal Parainfluen 4 PCR NOT DETECTED Nasal RSV (PCR) NOT DETECTED Nasal B.pertussis DNA PCR NOT DETECTED Nasal C.pneumoniae (PCR) NOT DETECTED Frandy Human Metapneumo PCR NOT DETECTED Nasal M.pneumoniae (PCR) NOT DETECTED Nasal SARS-CoV-2 (PCR) NOT DETECTED - Diagnostic Imaging Results Diagnostic Imaging Results: negative: Read independently (The right ankle mortise is unstable and disrupted by comminuted fractures involving the lateral malleolus at and just slightly above the joint line, transverse fracture at the joint line medial malleolus. I am not certain that there is a posterior malleolus fracture; radiologist felt that there was) Sepsis Event Note (H) - Evaluation Current Stage of Sepsis: Ruled out Impression/Plan - Problem List Problem List: 1. Closed, displaced bimalleolar fracture dislocation right ankle #2 comorbidi ties including obesity, hypertension, rhabdomyolysis which is resolving, anxiety/depression, fall risk and osteoporosis The patient is likely require surgical stabilization of her right ankle in the form of an open reduction internal fixation of the right ankle as discussed with patient and family. This would involve outpatient surgery on a delayed basis to allow for further reduction in swelling of the right ankle. I anticipate that the surgery could be safely performed next Friday as an outpatient at [facility] following outpatient clinic evaluation Friday or Friday at our office in [place]. The patient is receiving physical therapy to make certain she is safe discharge for today. In addition, she has been evaluated by her hospitalist from a medical standpoint. This tentative plan is in agreement to both patient and patient's family who is with her at bedside.
[2022-01-19 13:35] LABS: CALCIUM 8.8 mg/dL (8.5-10.3); CREATININE 0.7 mg/dL (0.4-1.0); POTASSIUM 3.7 mmol/L (3.5-5.0)
--- NOTE | 2022-01-19 13:46 | Discharge Plan ---
Discharge Plan Problem Reviewed?: Yes Disposition: Home, Self Care Condition: Fair Prescriptions: HYDROcod/ACETAM 5/325 [[place] 5/325] 1 tab PO Q8HR PRN #9 tab PRN Reason: Severe Pain Diet: Low Sodium Activity Restrictions: Activity as Tolerated Shower Restrictions: No Driving Restrictions: Yes Assistance Devices: Walker Weight Bearing: No Weight Instruction Topics: Ankle Fx Health Concerns: The patient was placed in Observation status to monitor her serum CK, a sign of rhabdomyolysis (muscle break down), which occurred from laying on the floor for 2 days at home. She laid on the floor because of pain after she fell, and had severe pain in the ankle. She was found to have a fractured ankle. The patient has been evaluated by an pacs specialist who advises that she may be discharged, needs to keep her leg elevated, should use a walker for support, with minimal weight-bearing on that foot, and needs to call for an appointment to see the Orthopedist next week. The number to call is [phone]. She will need assistance at home so that there is a safe home environment, before and after the ankle surgery. Several tablets of narcotic pain medication have been prescribed and electronically sent to her [facility] pharmacy in [place]. These need to be given to her with patient monitoring, due to her other medications, that together could make her more sleepy. Please discuss the concerns you have about the patient's hallucinations and wooziness with her providers. The patient may resume all her other pre-hospital medications. Patient should stay well-hydrated for the next 2 to 3 days for continued management of the muscle breakdown. Plan of Treatment: As above. Care Goals: Improvement in symptoms and stabilization are the goals. Assessment: These written instructions are provided as a reminder. Additional Instructions or Follow Up instructions: If the patient has new or worsening symptoms, call the PCP for advice or come to the ER. No Smoking: If you smoke, Please STOP! Call for help. Follow-up with: Momo Escamilla MD [Provider Admit Priv/Credential] -
[2022-01-19 15:40] VITALS: BP 145/58
--- NOTE | 2022-01-19 16:26 | DISCHARGE SUMMARY ---
Discharge Summary Admit Date: 01/18/22 Discharge Date: 01/19/22 Discharging Provider: Dr Lety Carolina Primary Care Provider: ARCHANA Rock Condition at Discharge: Fair Discharge Disposition: 01 Home, Self Care - HPI History of Present Illness: The patient comes to the emergency department chief complaint right ankle pain and swelling after an injury 2 days ago. She states she was in her closet when she caught her foot on the edge of a liquor cabinet that is in her closet. She states she felt pops and snaps and as she fell to the floor. The patient states she twisted as she went down and sort of crumpled to the floor and did not really hurt herself anywhere else. She called for her adult son who lives with her and apparently is somewhat disabled. They tried to get her up off the floor but they could not and so the patient sent her son to the store to buy depends so that she would not urinate on herself. She laid on the floor for a total of 2 days while her son made sure she had fresh Depends and fluids to drink and finally, her older son called and told the younger son to call EMS and have the patient sent in here. Patient denies any rib pain, spinal pain, head injury, or hip pain. Her only complaint is that her right ankle hurts. No other complaints at this time. She states she has been urinating a lot. 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 AOA x 3, left rachelle has a closed fracture with no open wound or skin breach as per my discussion with RN - HOSPITAL COURSE Hospital Course: (1) Rhabdomyolysis She received IV hydration and her repeat CK improved from 1600 to 500 the following day. She was discharged with instructions to "push" fluids for the next 2-3 days. (2) Bimalleolar avulsion fracture of right ankle We learned that the patient has had 2 other falls resulting in fractures. Orthostatic vital signs were checked and were normal. Orthopedist color consultant Dr Escamilla saw her and advised several days delay before having outpt surgery, to allow swelling to decrease. He instructed her to keep foot elevated, and to use a walker with minimal weight bearing. She was seen by PT and evaluated for getting OOB. More help at home was advised by PT. Her son and [id number] from [facility] arrived and said they planned on staying with her for a week. She was discharged with a new prescription for [place] pain meds and instructions to call the Ortho clinic for an appointment next week. (3) HTN Her usual meds were continued. An EKG was done and this showed NSR, LVH with small inf. Q waves and the LVH was new compared to a previous EKG. (4) Anxiety We continued her home meds (5) Hallucinations Her RN was told she saw people who she knew were not really present. Her [id number] mentioned that the patient is slightly more confused ever since being on the combination of current medications. She was told to bring this up with the PCP or prescribing doctor. - ALLERGIES Allergies/Adverse Reactions: Allergies Allergy/AdvReac Type Severity Reaction Status Date / Time ibuprofen AdvReac Severe Nausea Verified 01/18/22 16:29 aspirin AdvReac Mild Nausea Verified 01/18/22 16:29 codeine AdvReac Mild Nausea Verified 01/18/22 16:29 - MEDICATIONS Home Medications: Ambulatory Orders Medication Instructions Recorded Confirmed Amitriptyline HCl 75 mg PO HS 08/28/12 01/18/22 Gabapentin [Neurontin] 200 mg PO TID 08/28/12 01/18/22 amLODIPine [Norvasc] 10 mg PO DAILY 08/28/12 01/18/22 Metoprolol Succinate [Toprol Xl] 50 mg PO DAILY 08/23/21 01/18/22 clonazePAM [Clonazepam] 0.5 mg PO TID 01/18/22 01/18/22 lisinopriL [Zestril] 5 mg PO DAILY 01/18/22 01/18/22 HYDROcod/ACETAM 5/325 [[place] 5/325] 1 tab PO Q8HR PRN #9 tab 01/19/22 - PHYSICAL EXAM AT DISCHARGE General Appearance: positive: No acute distress, Alert, Other (Obese) Eyes Bilateral: positive: Normal inspection ENT: positive: No signs of dehydration Neck: positive: Nml inspection Respiratory: positive: No respiratory distress Cardiovascular: positive: Regular rate & rhythm Abdomen: positive: Non-tender, Other (Obese with pannus) Skin: positive: Warm, Dry Extremities: positive: No pedal edema, Other (L foot in splint) Neurologic/Psychiatric: positive: Oriented x3, Other (Poor memory) - LABS Result Diagrams: 01/18/22 16:34 01/19/22 13:02 - DIAGNOSTIC IMAGING Diagnostic Imaging Results: Final report reviewed - FOLLOW UP Follow Up: See Dr Escamilla in Ortho clinic next week to schedule outpatient ankle surgery. - TIME SPENT Time Spent in Discharge (Minutes): 35
== END 2022-01-19 18:20 | disposition home or self-care (01) ==
LOC: EDUNIT# → ED 16:09 → MS2 21:27
PROVIDERS: ADMIT Internal Medicine; ATTEND Internal Medicine
DX: M62.82 Rhabdomyolysis (principal); S82.841A Displaced bimalleolar fracture of right lower leg, initial encounter for closed fracture; S93.412A Sprain of calcaneofibular ligament of left ankle, initial encounter; W22.03XA Walked into furniture, initial encounter; Y92.008 Other place in unspecified non-institutional (private) residence as the place of occurrence of the external cause; I10 Essential (primary) hypertension; E78.00 Pure hypercholesterolemia, unspecified; F32.A Depression, unspecified; F41.9 Anxiety disorder, unspecified; F43.10 Post-traumatic stress disorder, unspecified; F40.240 Claustrophobia; R44.1 Visual hallucinations; E66.9 Obesity, unspecified; Z20.822 Contact with and (suspected) exposure to COVID-19; Z79.899 Other long term (current) drug therapy; Z90.710 Acquired absence of both cervix and uterus
CPT/HCPCS: 27818; 36415; 73600; 73610; 80048; 80053; 82550; 83690; 85025; 87633; 93005; 96361; 96374; 97162; 99283; 99284; 99285; A9270; G0378; J1170; 82553; 83880; 96372

== ENCOUNTER 2022-01-19 19:01 | Outpatient (CLI) | payer MEDICARE, OTHER | END 2022-01-19 19:02 | disposition EMS.NT | LOC: EMS 19:01 | DX: R53.1 Weakness (principal); R26.2 Difficulty in walking, not elsewhere classified ==

== ENCOUNTER 2022-01-19 23:23 | Outpatient (CLI) | payer MEDICARE, OTHER | END 2022-01-19 23:24 | disposition critical access hospital (66) | LOC: EMS 23:23 | DX: R53.1 Weakness (principal); M79.661 Pain in right lower leg; R06.00 Dyspnea, unspecified | CPT/HCPCS: A0425; A0429 ==

== ENCOUNTER 2022-01-19 23:36 | Emergency (ER) | payer MEDICARE, OTHER ==
--- NOTE | 2022-01-20 01:32 | ED Physician Documentation ---
History of Present Illness - Stated complaint Stated Complaint: INABILITY TO TAKE CARE OF HERSELF/SOA - Chief complaint Chief Complaint: General - History obtained from History obtained from: Patient, EMS - History of Present Illness Pain level now: 4 Improved by: prescribed pain medication - Additonal information Additional information: patient was admitted from this ED yesterday after right ankle injury that resulted in right bimalleolar fracture. She was placed in a splint in the ED and then admitted to [facility] due to rhabdomyolsis. She was discharged earlier today. Patient was taken home by family but, per patient, they were unable to get patient out of the vehicle and she had to crawl from the car into the house and patient and family felt she could not be taken care of at home at that point. Review of Systems Constitutional: reports: Reviewed and negative Cardiac: reports: Reviewed and negative Respiratory: reports: Dyspnea. denies: Cough Musculoskeletal: reports: Joint pain (right ankle) PD PAST MEDICAL HISTORY - Past Medical History Past Medical History: Yes Cardiovascular: Hypertension, High cholesterol Respiratory: None Neuro: None Endocrine/Autoimmune: None GI: None CERTIFIED TECHNICIAN SPECIALIST: None : Kidney stones HEENT: None Psych: Depression, Anxiety, Panic attacks, Post traumatic stress disorder, Claustrophobia Musculoskeletal: Other Derm: None - Past Surgical History Past Surgical History: Yes Ortho: Other /CERTIFIED TECHNICIAN SPECIALIST: Hysterectomy HEENT: Tonsil/Adenoidectomy - Present Medications Home Medications: Ambulatory Orders Medication Instructions Recorded Confirmed Amitriptyline HCl 75 mg PO HS 08/28/12 01/18/22 Gabapentin [Neurontin] 200 mg PO TID 08/28/12 01/18/22 amLODIPine [Norvasc] 10 mg PO DAILY 08/28/12 01/18/22 Metoprolol Succinate [Toprol Xl] 50 mg PO DAILY 08/23/21 01/18/22 clonazePAM [Clonazepam] 0.5 mg PO TID 01/18/22 01/18/22 lisinopriL [Zestril] 5 mg PO DAILY 01/18/22 01/18/22 HYDROcod/ACETAM 5/325 [[place] 5/325] 1 tab PO Q8HR PRN #9 tab 01/19/22 - Allergies Allergies/Adverse Reactions: Allergies Allergy/AdvReac Type Severity Reaction Status Date / Time ibuprofen AdvReac Severe Nausea Verified 01/19/22 23:55 aspirin AdvReac Mild Nausea Verified 01/19/22 23:55 codeine AdvReac Mild Nausea Verified 01/19/22 23:55 - Social History Does the pt smoke?: No Smoking Status: Never smoker Does the pt drink ETOH?: No Does the pt have substance abuse?: No - Immunizations Immunizations are current?: Yes - POLST Patient has POLST: No PD ED PE NORMAL - Vitals Vital signs reviewed: Yes - General General: Alert and oriented X 3, No acute distress, Well developed/nourished - Cardiac Cardiac: RRR - Respiratory Respiratory: No respiratory distress, Other (right lower lung field faint rhonchi) - Derm Derm: Normal color, Warm and dry - Extremities Extremities: Other (RLE splint removed (posterior with stirrup); mild/moderate ankle swelling consistent with recent injury. no erythema, not hot to touch. light touch sensation intact, brisk capillary refill in toes) Results - Vitals Vitals: Vital Signs - 24 hr 01/20/22 01/20/22 01/20/22 13:34 13:36 17:51 Temperature 98.6 C H 36.7 C Heart Rate 96 84 Respiratory 16 16 Rate Blood Pressure 198/80 H 167/71 H 141/75 H O2 Saturation 94 97 01/20/22 01/20/22 01/21/22 21:09 22:48 01:55 Temperature 36.6 C 36.5 C Heart Rate 69 70 85 Respiratory 15 15 16 Rate Blood Pressure 128/86 H 136/68 H 133/62 H O2 Saturation 98 100 99 01/21/22 05:52 Temperature 36.6 C Heart Rate 88 Respiratory 16 Rate Blood Pressure 142/61 H O2 Saturation 95 Oxygen O2 Source Room air - Labs Labs: Laboratory Tests 01/20/22 01/20/22 01/20/22 03:10 03:10 03:10 WBC 8.7 RBC 3.83 L Hgb 12.2 Hct 36.2 L MCV 94.5 MCH 31.9 H MCHC 33.7 RDW 13.2 Plt Count 223 MPV 10.9 H Neut # (Auto) 4.8 Lymph # (Auto) 2.5 [place] # (Auto) 1.0 Eos # (Auto) 0.2 Baso # (Auto) 0.1 Absolute Nucleated RBC 0.00 Nucleated RBC % 0.0 Sodium 136 Potassium 3.7 Chloride 107 Carbon Dioxide 24 Anion Gap 5.0 L BUN 13 Creatinine 0.8 Estimated GFR (MDRD) 69 L Glucose 96 Calcium 8.8 Total Creatine Kinase 405 H CK-MB (CK-2) 2.7 B-Natriuretic Peptide 01/20/22 03:10 WBC RBC Hgb Hct MCV MCH MCHC RDW Plt Count MPV Neut # (Auto) Lymph # (Auto) [place] # (Auto) Eos # (Auto) Baso # (Auto) Absolute Nucleated RBC Nucleated RBC % Sodium Potassium Chloride Carbon Dioxide Anion Gap BUN Creatinine Estimated GFR (MDRD) Glucose Calcium Total Creatine Kinase CK-MB (CK-2) B-Natriuretic Peptide 131 H PD MEDICAL DECISION MAKING - ED course Complexity details: reviewed old records, reviewed results, re-evaluated patient, considered differential, d/w patient ED course: discharged earlier today after overnight inpatient stay related to right ankle fracture and rhabdomylosis. No evidence of complication of the recent injury on exam (splint removed for exam and immediately replaced). No concerning findings on basic labs at this time; cpk 405, down from 500s earlier today and 1600s on admission yesterday. Sign out given to oncoming ED physician at end of my shift pending SW consult (which will not be available until 01/21). Patient given hydrocodone/acetaminophen during my shift for pain with good response
[2022-01-20] MEDS ORDERED: HYDROcod/ACETAM 5/325 MG TABLET PO STA ×2 (02:59→04:43)
[2022-01-20 03:14] LABS: BASOPHILS # (AUTO) 0.1 10^3/uL (0.0-0.1); BASOPHILS % (AUTO) 0.7 %; EOSINOPHILS # (AUTO) 0.2 10^3/uL (0.0-0.7); EOSINOPHILS % (AUTO) 2.6 %; HCT - HEMATOCRIT 36.2 % (37.0-47.0); HGB - HEMOGLOBIN 12.2 g/dL (12.0-16.0); LYMPHOCYTES # (AUTO) 2.5 10^3/uL (1.5-3.5); MEAN CORPUSCULAR HEMOGLOBIN 31.9 pg (27.0-31.0); MEAN CORPUSCULAR HGB CONC 33.7 g/dL (32.0-36.0); MEAN CORPUSCULAR VOLUME 94.5 fL (81.0-99.0); MEAN PLATELET VOLUME 10.9 fL (7.9-10.8); MONOCYTES % (AUTO) 11.7 %; NEUTROPHILS # (AUTO) 4.8 10^3/uL (1.5-6.6); NEUTROPHILS % (AUTO) 55.5 %; PLT - PLATELET COUNT 223 10^3/uL (130-450); RED BLOOD COUNT 3.83 10^6/uL (4.20-5.40); RED CELL DISTRIBUTION WIDTH 13.2 % (12.0-15.0); WHITE BLOOD COUNT 8.7 x10^3/uL (4.8-10.8)
[2022-01-20 03:31] LABS: CALCIUM 8.8 mg/dL (8.5-10.3); CREATININE 0.8 mg/dL (0.4-1.0); POTASSIUM 3.7 mmol/L (3.5-5.0)
--- NOTE | 2022-01-20 09:07 | XRAY Report ---
PROCEDURE: Chest 1 View X-Ray INDICATIONS: dyspnea TECHNIQUE: One view of the chest was acquired. COMPARISON: 06/03/2018, 08/22/2018 FINDINGS: Surgical changes and devices: None. Lungs and pleura: Low lung volumes can be seen, causing a crowded appearance to the lung markings. G eneralized interstitial prominence can be seen, with interval focal opacity seen involving the right lung base. There is blunting of the costophrenic angles. No pneumothorax is seen. Mediastinum: Mediastinal contours appear normal. Heart size is normal. Atherosclerotic calcificati on is seen. Bones and chest wall: No suspicious bony lesions. Age-appropriate degenerative changes are seen. O verlying soft tissues appear unremarkable. IMPRESSION: Low lung volumes with potential right lung base infiltrate. Blunting of the costophrenic angles is seen and small bilateral pleural effusions are possible. Please consider a short-term follow-up 2 view chest series (performed in deep inspiration) for furthe r evaluation. Note: No significant discrepancy from the preliminary report. Reviewed by: Vishal Martin MD on 01/20/2022 8:06 AM CLAUDE Approved by: Vishal Martin MD on 01/20/2022 8:06 AM CLAUDE Station ID: [id number]
[2022-01-20] MEDS: ENOXAPARIN 30 MG/0.3 ML SYRINGE SUBQ SCH (13:23)
[2022-01-20] MEDS: amLODIPine 5 MG TABLET PO SCH ×2 (13:46→13:47)
[2022-01-20] MEDS: lisinopriL 5 MG TABLET PO SCH (13:46)
[2022-01-20] MEDS: METOPROLOL SUCCINATE 50 MG TABLET PO SCH (13:47)
[2022-01-20] MEDS: HYDROcod/ACETAM 5/325 MG TABLET PO PRN ×2 (13:47→20:02)
--- NOTE | 2022-01-20 13:58 | ED Physician Documentation ---
ED Addendum - Addendum Addendum: 01/20/22 13:56 Patient is a 81-year-old female who is here with a ankle fracture that is scheduled for surgery later in the week. She has been unable to take care of herself at home and the family is unable to help her. They state that they are unable to lift her up off the floor and they are unable to take her to the bathroom. She apparently has a wheelchair ramp at the house but they state that they do not believe the inside of the house is accessible to a wheelchair. I spoke with both of the patient's sons, Peter and Trent. Trent's phone number is [phone]. They are both concerned with her going home and do not feel that she is safe. Discussed the case with orthopedics, Dr. Escamilla who does not feel that she needs to be admitted for this fracture at this time. We will keep the patient in the emergency department until tomorrow when social work can evaluate the patient again and consider placement had a rehab/nursing facility.
[2022-01-20] MEDS: clonazePAM 0.5 MG TABLET PO PRN (20:02)
[2022-01-21] MEDS: HYDROcod/ACETAM 5/325 MG TABLET PO PRN ×2 (03:55→11:28)
[2022-01-21] MEDS: clonazePAM 0.5 MG TABLET PO PRN ×2 (04:22→13:12)
[2022-01-21] MEDS: lisinopriL 5 MG TABLET PO SCH (09:38)
[2022-01-21] MEDS: METOPROLOL SUCCINATE 50 MG TABLET PO SCH (09:38)
[2022-01-21] MEDS: ENOXAPARIN 30 MG/0.3 ML SYRINGE SUBQ SCH (09:38)
--- NOTE | 2022-01-21 13:06 | ED Physician Documentation ---
ED Addendum - Addendum Addendum: 01/21/22 13:02 Social work evaluated the patient and discussed the plan of care with the patient and her family. They have obtained a commode for home as well as a transfer wheelchair. She has a wheelchair ramp leading into her home. Per social work, the family is comfortable taking her home at this time. She will follow-up with orthopedics likely on Friday to plan her surgery. Departure - Departure Disposition: , Self Care Clinical Impression: Bimalleolar avulsion fracture of right ankle Condition: Good Instructions: ED Fx Lower Ext Follow-Up: Momo Escamilla MD [Provider Admit Priv/Credential] - Within 3 Days Comments: Please follow-up with orthopedics as scheduled. Please return if she worsens.
--- NOTE | 2022-01-21 14:24 | PROVIDER PROGRESS NOTE ---
Subjective - Other Other Information/Narrative: The patient had been seen previously this past Friday in observation with regard to her right ankle injury. She also was evaluated by her hospitalist. Because of her general health, swelling to right ankle, it was felt best to treat her on a delayed basis this week for surgical stabilization of right ankle. She was discharged to home on Friday but returned to the emergency room because family members including both sons and [id number] could not care for their mother. There were no social workers available over the weekend in the hospital. Since returning to the ER on Friday, patient has seen addiction social worker today. Both sons were available, the son with the power of attorney law clerk has to leave and come back this Friday. Arrangements had been made for the patient to go home from the ER today. The patient does not seem to be in excessive pain but she is fully disoriented to person, place and time. She is fully alert, talking regularly to her sons. She is been having some hallucinations in the past off and on, occasionally delusional but most the time functions relatively well. Over the past year she has had some deterioration according to her son's with her mental status. She has been ambulatory at home without restriction or use of walking aid. However she has had a fall to her left wrist which required pinning of her wrist several months ago and does have a history of ankle fracture on the left side in the past. [place] The family is concerned with her medications has been contributory to some of her mental status issues. The patient does not drive a car and does not usually leave home but can walk outside home and indoors at home. Objective - Patient Data Vital Signs: Vital Signs x48h Pulse Ox O2 Flow Rate 01/21/22 12:30 93 2 01/21/22 12:29 88 L Weight: Weight 01/19/22 01/20/22 01/21/22 23:59 23:59 23:59 Weight (kg) 77.111 kg Intake & Output: Intake and Output Totals x24h 01/19/22 01/20/22 01/21/22 23:59 23:59 23:59 Output Total 600 1200 Balance -600 -1200 - Lab Results Lab Results: 01/20/22 03:10 01/20/22 03:10 - Imaging Results Radiology Imaging: negative: EMP read indepedently (CT scan independently visualized and show a trimalleolar fracture of the right ankle. The posterior malleolar fragment is quite small. Lateral malleolus is comminuted with the fracture being transverse at the joint line. There is also a transverse fracture of the medial malleolus at the joint sugey) - Current Medications Current Medications: Current Medications Generic Name Dose Route Start Last Admin Trade Name Freq PRN Reason Stop Dose Admin Hydrocodone Bitart/Acetaminophen 1 tab 01/20/22 13:35 01/21/22 11:28 Hydrocod/Acetam 5/325 Mg Tablet PO 1 tab Q6H PRN Administration ankle pain Amlodipine Besylate 10 mg 01/20/22 09:00 01/20/22 13:47 Amlodipine 5 Mg Tablet PO 10 mg DAILY RAND Administration Clonazepam 0.5 mg 01/20/22 13:35 01/21/22 13:12 Clonazepam 0.5 Mg Tablet PO 0.5 mg TID PRN Administration Anxiety Enoxaparin Sodium 30 mg 01/20/22 13:00 01/21/22 09:38 Enoxaparin 30 Mg/0.3 Ml Syringe SUBQ 01/23/22 09:00 30 mg DAILY RAND Administration Lisinopril 5 mg 01/20/22 09:00 01/21/22 09:38 Lisinopril 5 Mg Tablet PO 5 mg DAILY RAND Administration Metoprolol Succinate 50 mg 01/20/22 09:00 01/21/22 09:38 Metoprolol Succinate 50 Mg Tablet PO 50 mg DAILY RAND Administration - Physical Exam General Appearance: positive: No acute distress, Alert Respiratory: positive: No respiratory distress Cardiovascular: positive: Regular rate & rhythm Abdomen: positive: Non-tender Extremities: positive: Pedal edema, Other (Swelling to right ankle decreased, ankle unstable and tender, pulses intact). negative: Joint swelling Neurologic/Psychiatric: positive: Disoriented to person, Disoriented to place, Disoriented to time Impression/Plan - Problem List Problem List: 1. Unstable trimalleolar, closed displaced fracture dislocation right ankle 2. Comorbidities including obesity, frailty of age, osteopenia/osteoporosis, altered mental status, fall risk and fracture history, inadequate social support at home. She apparently does not qualify for admission. Her surgery has been scheduled for Friday; this will allow for equip ment to be brought including rosie and plates. The patient cannot provide informed consent but her [place] power [place] attorney law [place] give consent after discussion in detail with him. The treatment of this kind of fracture is controversial and is associated with probably at least at 30% or more complication rate because of patient compliance With inability to offload weight on the surgical extremity, osteoporosis, nature of injury which does not allow for the best purchase of internal fixation. The ankle is an area where circulation is decreased and the skin envelope is so close to bone and joint that infection and wound breakdown is a problem. Normally, internal fixation will be provided either with rosie or plate to the fibula, screw or plate to the medial malleolus. Even with internal fixation failure of fixation is a possibility. I also discussed the possibility of acute versus delayed tibial calcaneal rosie, favor the latter if fixation fails from primary surgery. I have discussed the risk, goals and likelihood of achieving goals, alternatives to surgery and their consequences, disability and rarely . The family is in agreement to proceeding with orthopedic surgical treatment this Friday with subsequent hospitalization. I think it is un likely that this procedure can be done as an outpatient as initially thought because of her lack of support at home and her inability to ambulate.
--- NOTE | 2022-01-21 14:49 | CT Report ---
PROCEDURE: LOWER EXTREMITY WO - RT INDICATIONS: R ankle fracture TECHNIQUE: Noncontrast 3-mm axial sections acquired from the distal tibial shaft to the talar dome, with coronal and sagittal reformats. For radiation dose reduction, the following was used: automated exposure c ontrol, adjustment of mA and/or kV according to patient size. COMPARISON: Ankle radiograph dated 01/18/2022. FINDINGS: Image quality: Excellent. Bones: Again noted is a severely comminuted fractures involving distal fibular shaft with distal and lateral displacement of the lateral malleolus fractured fragment and up to 1 cm diastases at fractur e site. Additional smaller posterior and laterally displaced fractured fragments are also seen. There is also a comminuted fracture through base of medial malleolus with distal and medial displacement a t fracture site and up to 8 mm diastases. Smaller medially displaced fragments are also seen. Acute f racture is also noted involving posterior and lateral portion of distal tibia with posteriorly displa lee fracture fragment and up to 4 mm diastases at fracture site. No other fracture is seen. No disloc ation. Widening of medial and lateral ankle mortise is seen. No suspicious bony lesion. Soft tissues: There is diffuse soft tissue swelling and edema around ankle fracture sites. Moderate tibiotalar joint effusion is likely present. No definite intra-articular loose bodies. No gross full- thickness ankle tendon rupture is seen. Impression: 1. Comminuted and displaced trimalleolar fracture with disruption of medial and lateral ankle mortise as described above. No dislocation. No suspicious intraosseous lesion. No other fracture is seen. 2. Diffuse ankle soft tissue swelling with suggestion of moderate to large tibiotalar joint effusion. No abnormal soft tissue calcifications. No gross full-thickness ankle tendon rupture. Reviewed by: Francisco Saenz MD on 01/21/2022 2:48 PM PDT Approved by: Francisco Saenz MD on 01/21/2022 2:48 PM PDT Station ID: [id number]
[2022-01-21 14:52] VITALS: BP 160/70
== END 2022-01-21 14:35 | disposition home or self-care (01) ==
LOC: EDUNIT# → ED 23:36
DX: S82.841A Displaced bimalleolar fracture of right lower leg, initial encounter for closed fracture (principal); X58.XXXA Exposure to other specified factors, initial encounter; M62.82 Rhabdomyolysis; I10 Essential (primary) hypertension
CPT/HCPCS: 36415; 80048; 82550; 82553; 83880; 85025; 96372; 99283

== ENCOUNTER 2022-01-23 06:14 | Day surgery (SDC) | payer MEDICARE, OTHER ==
[2022-01-23] MEDS ORDERED: CEFAZOLIN 2G/50ML 0.9% NS 2 GM/50 ML BAG IV ONE (06:38)
[2022-01-23] MEDS ORDERED: ACETAMINOPHEN 500 MG TABLET PO ONE (06:38)
[2022-01-23] MEDS ORDERED: CELECOXIB 100 MG CAPSULE PO ONE (06:38)
[2022-01-23] MEDS ORDERED: LACTATED RINGERS 1,000 ML IV ONE (07:01)
[2022-01-23] MEDS ORDERED: VANCOMYCIN 1 GM VIAL ONE (07:06)
[2022-01-23] MEDS ORDERED: LIDOCAINE MPF 2%-EPI 1:200000 20 ML VIAL ONE (07:06)
[2022-01-23] MEDS ORDERED: BUPIVACAINE 0.5% PF 30 ML VIAL ONE (07:07)
--- NOTE | 2022-01-23 07:11 | ANESTHESIA ---
Pre-Anesthesia VS, & Labs - Diagnosis R trimal ankle fx - Procedure ORIF R ankle fx, rosie/plate Vital Signs: Temp Pulse Resp BP Pulse Ox O2 Flow Rate 36.9 C 93 16 137/64 H 99 0 01/23/22 06:45 01/23/22 06:45 01/23/22 06:45 01/23/22 06:45 01/23/22 06:45 01/23/22 06:45 Height: 5 ft 2 in Weight (kg): 79.38 kg Body Mass Index: 32.0 BMI Classification: Obese - NPO >8 hours - Is Patient ?: No - Lab Results Lab results reviewed: Yes Home Medications and Allergies Amitriptyline HCl 75 mg PO HS 08/28/12 Gabapentin [Neurontin] 200 mg PO TID 08/28/12 amLODIPine [Norvasc] 10 mg PO DAILY 08/28/12 Metoprolol Succinate [Toprol Xl] 50 mg PO DAILY 08/23/21 clonazePAM [Clonazepam] 0.5 mg PO TID 01/18/22 lisinopriL [Zestril] 5 mg PO DAILY 01/18/22 Allergies/Adverse Reactions: Allergies Allergy/AdvReac Type Severity Reaction Status Date / Time ibuprofen AdvReac Severe Nausea Verified 01/19/22 23:55 aspirin AdvReac Mild Nausea Verified 01/19/22 23:55 codeine AdvReac Mild Nausea Verified 01/19/22 23:55 Anes History & Medical History - Anesthetic History Anesthesia Complications: reports: No previous complications Family history of Anesthesia Complications: Denies Family history of Malignant Hyperthermia: Denies - Medical History Cardiovascular: reports: Hypertension, High cholesterol Pulmonary: reports: Shortness of breath Gastrointestinal: reports: None Urinary: reports: Kidney stones Neuro: reports: None Musculoskeletal: reports: Osteoporosis Endocrine/Autoimmune: reports: None Blood Disorders: reports: None Skin: reports: None Smoking Status: Never smoker - Surgical History Eyes Ears Nose Throat (EENT): reports: Tonsil/Adenoidectomy Gynecologic: reports: Hysterectomy Orthopedic: reports: Other Exam General: Alert, Oriented x3, Cooperative Dental: Dentures full Upper, Dentures full Lower Mouth Openin Fingerbreadth Neck Mobility: Normal Mallampati classification: II Thyromental Distance: 4-6 cm Cardiovascular: Regular rate Neurological: Normal speech Mental/Cognitive Status: Alert/Oriented X3, Normal for patient Cognitive Status: Within normal limits Plan Anesthesia Type: General, Popliteal Block Consent for Procedure(s) Verified and Reviewed: Yes Code Status: Attempt Resuscitation ASA classification: 3-Severe systemic disease Is this case an emergency?: No
[2022-01-23] MEDS ORDERED: ONDANSETRON 4 MG/2 ML VIAL ONE (07:23)
[2022-01-23] MEDS ORDERED: TRANEXAMIC ACID 1,000 MG/10 ML VIAL ONE (07:23)
[2022-01-23] MEDS ORDERED: PROPOFOL 200 MG/20 ML VIAL IVP ONE (07:23)
[2022-01-23] MEDS ORDERED: fentaNYL 100 MCG/2 ML VIAL ONE ×2 (07:25→11:06)
[2022-01-23] MEDS ORDERED: MIDAZOLAM 2 MG/2 ML VIAL ONE (07:26)
[2022-01-23] MEDS ORDERED: ROPIVACAINE 0.5% PF 20 ML VIAL ONE (07:28)
[2022-01-23] MEDS ORDERED: LIDOCAINE-MPF 2% 5 ML VIAL ONE (07:36)
[2022-01-23] MEDS ORDERED: NALOXONE 0.4 MG/ML VIAL IVP PRN (08:00)
[2022-01-23] MEDS ORDERED: MORPHINE 2 MG/ML CARPUJECT IVP PRN (08:00)
[2022-01-23] MEDS ORDERED: fentaNYL 100 MCG/2 ML VIAL IVP PRN (08:00)
[2022-01-23] MEDS ORDERED: LACTATED RINGERS 1,000 ML IV SCH (08:00)
[2022-01-23] MEDS ORDERED: ATROPINE ABBOJECT 1 MG/10 ML SYRINGE IVP PRN (08:00)
[2022-01-23] MEDS ORDERED: METOCLOPRAMIDE 10 MG/2 ML VIAL IVP PRN (08:00)
[2022-01-23] MEDS ORDERED: ONDANSETRON 4 MG/2 ML VIAL IVP PRN (08:00)
[2022-01-23] MEDS ORDERED: ePHEDrine 50 MG/ML VIAL IVP PRN (08:00)
[2022-01-23] MEDS ORDERED: HYDROmorphone 0.5 MG/0.5 ML SYRINGE IVP PRN (08:00)
[2022-01-23] MEDS ORDERED: BUPIVACAINE 0.5%-EPI 1:200000 PF 30 ML VIAL SUBQ ONE ×2 (08:11)
[2022-01-23] MEDS ORDERED: DEXAMETHASONE 4 MG/ML VIAL ONE (08:18)
[2022-01-23] MEDS ORDERED: VANCOMYCIN 1 GM VIAL MC ONE (11:03)
[2022-01-23] MEDS ORDERED: BACITRACIN ZINC OINT 1 PACKET TOP ONE ×2 (11:30→11:34)
[2022-01-23] MEDS ORDERED: LACTATED RINGERS 400 ML IV ONE (11:37)
[2022-01-23] MEDS ORDERED: oxyCODONE 5 MG TABLET PO PRN (11:39)
[2022-01-23] MEDS ORDERED: BACITRACIN ZINC OINT 14 GM TOP ONE (11:50)
--- NOTE | 2022-01-23 11:50 | OPERATIVE REPORT ---
Operative Report - General Procedure Date: 01/23/22 Planned Procedure: Open reduction internal fixation right ankle fractures Pre-Op Diagnosis: Closed, unstable trimalleolar fracture dislocation right ankle Procedure Performed: Open reduction internal fixation of lateral malleolus, medial malleolus and syndesmosis right ankle. The Arthrex 3.0 x 130 mm fibula lock fibular nail, medial hook buttress plate for medial malleolus, tight rope and fiber tack suture to repair syndesmosis right ankle (Arthrex) Post Op Diagnosis: Same as preoperative diagnosis - Procedure Note Primary Surgeon: Momo Escamilla MD Secondary Surgeon: Rodrigue Chino Anesthesia Technique: Regional block Estimated Blood Loss (mL): 50 Indications: This is a 81-year-old woman with a history of fall from standing height with isolated injury to right ankle that occurred about a week ago. She was not brought to the hospital for almost 2 days following the injury. She was laying on the floor and had some care by her son. She lives alone with her son. She is ambulatory. She does have a history of previous fractures to left wrist and left ankle associated with falls. Most of her ambulation is indoors and just around her home. She does not regularly use a walking aid. She did quit smoking many years ago. She denies use of alcohol. She does have obesity, intermittent mental confusion but most of the time functions relatively well. She had been admitted to the hospital with some rhabdomyolysis over the weekend, discharged the following day under observation status. She returned to the emergency room because of family's inability to take care of her. sprinkler worker and physical therapy were ordered and helped make it possible for her to go home. She now has a bedside commode, walker and a scooter. She has 2 sons now helping her. Her x-rays show osteopenia, comminuted lateral malleolar fracture at and just slightly above the joint line, medial malleolar fracture that is transverse and slightly above joint line and a very small posterior malleolar fracture. A CT scan and routine radiographs had been obtained preoperatively. She did have swelling and ecchymosis about the leg. There is no sign of compartment syndrome or open fracture. There is no neurovascular deficit. The ankle joint was unstable. The patient and her sons agreed to surgery, informed consent obtained knowing that this is a fracture that is not without morbidity, up to 30% or more complication rate, often necessitating revision or repeat surgery. The fracture is challenging because of comminution, osteopenia, reduced circulation and atrophic skin in addition to obesity and difficulty in complying with reduced weightbearing. Findings: The patient skin did wrinkle about the ankle. There was swelling and ecchymosis as well as atrophic skin. There were 2 very small 5 mm fracture blisters over the anterior medial ankle. The ankle mortise was definitely unstable under anesthesia and wanted to dislocate.The lateral malleolus was comminuted and there was an avulsion fracture off the anterolateral tibia involving the syndesmosis. This would create a Quadra malleolar fracture rather than just a trimalleolar fracture. The ankle mortise unstable, talus wants to dislocate posteriorly. There was osteopenia around the fracture site. Complications: None - Other Other Information/Narrative: The patient was brought to the operating room table. She had been given a popliteal block. She was positioned supine on the operating room table with a bump beneath the right buttock to help with internal rotation and a bone ramp to elevate the right leg on the operating table for C arm visualization. The right lower extremity was prepped and draped in a sterile manner in the usual fashion. The C arm was covered with sterile drape. A timeout procedure was performed by the entire operating room team and all were in agreement. A 1.5 cm incision was made just below, approximately a centimeter, from the tip of the lateral malleolus. A guide was placed against the tip and a guidewire was attempted to be placed intramedullary for anticipation of a fibular nail. I had difficulty in passing the K wire intramedullary, partly because of soft tissue swelling, comminution of fracture and because the K wire 1 to been slightly making it difficult to pass the cannulated drill. After several attempts, I elected to extend the incision to expose the fracture which was quite comminuted, reduced the fracture with a small bone clamp and then passed the K wire intramedullary from tip of the lateral malleolus. The pin position was confirmed with the C arm image intensifier. The distal and was opened with a 6.2 mm drill to the lateral malleolus and then more proximally a 3.2 mm drill bit. The 3 mm fibula lock nail and guide was then gently impacted into the lateral malleolus, across the fracture and and into the proximal fibula, slightly countersunk. The proximal fans were then deployed. 2 transverse screws were placed to the rosie and additional screw from anterior to posterior. In addition, the Arthrex syndesmosis tight rope was utilized. This was inserted through a cannulated drill hole that engaged 4 cortices. This provided much better stability to the syndesmosis. A second incision, longitudinal over the anteromedial ankle was made. Care was taken to avoid the saphenous vein. A medial arthrotomy was made. The fracture was identified and temporary reduced with a small bone clamp and K wires. The Arthrex hook medial buttress plate was then inserted, impacting the tines into the tip of the medial malleolus and inserting nonlocking screws proximally and a 16mm 4.0 cancellous, partially-threaded, screw from the tip of the medial malleolus between the tines of the plate. This provided excellent fixation and alignment of the medial malleolus. The ankle mortise was stable following repair of lateral malleolus, syndesmosis and medial malleolus. The tourniquet which had been utilized, total of 118 minutes was deflated. Hemostasis was achieved with electrocautery. The wounds were irrigated, vancomycin inserted and a single layer closure was performed using atraumatic no touch technique with 3-0 running nylon. The skin approximated well. Bacitracin, Xeroform, cast padding and cotton batting with a fiberglass splint, posterior short leg and Paco wrap was applied. The ankle was placed in neutral dorsiflexion. The patient received 2 g of Ancef intravenously and tolerated procedure well. A physician trust manager assistant was medically necessary to help with prepping and draping, positioning, protection of vital structures, assistance during the procedure including wound closure, dressing and/or splinting.
[2022-01-23] MEDS ORDERED: ACETAMINOPHEN 500 MG TABLET PO SCH (12:00)
--- NOTE | 2022-01-23 12:47 | ANESTHESIA POST OP EVALUATION ---
Anesthesia Post Eval - Post Anesthesia Eval Vitals: Last Vital Signs Temp 36.7 C 01/23/22 12:19 Pulse 77 01/23/22 12:19 Resp 16 01/23/22 12:19 BP 102/73 01/23/22 12:19 Pulse Ox 94 01/23/22 12:19 O2 Flow Rate 0 01/23/22 06:45 CV Function Including HR & BP: Stable Pain Control: Satisfactory Nausea & Vomiting: Negative Mental Status: Baseline Respiratory Status: Airway Patent Hydration Status: Satisfactory Anesthesia Complications: None
[2022-01-23] MEDS ORDERED: oxyCODONE 5 MG TABLET ONE (13:13)
[2022-01-23 14:58] VITALS: BP 141/106
--- NOTE | 2022-01-23 16:59 | XRAY Report ---
PROCEDURE: OR C-Arm Procedure INDICATIONS: ORIF RIGHT ANKLE TECHNIQUE: Intraoperative images were acquired. COMPARISON: X-ray ankle 01/18/2022 FINDINGS: There is fixation of the medial malleolus as well as distal fibula. Good anatomic alignment is presen t. Hardware appears intact. IMPRESSION: Intraoperative fixation as above. Reviewed by: Jazlyn Sidhu MD on 01/23/2022 4:58 PM PDT Approved by: Jazlyn Sidhu MD on 01/23/2022 4:58 PM PDT Station ID: [id number]
[2022-01-23] MEDS ORDERED: ASPIRIN EC 81 MG TABLET PO SCH (21:00)
== END 2022-01-23 06:15 | disposition home or self-care (01) ==
LOC: SDS 06:14
PROVIDERS: ATTEND Orthopaedic Surgery
DX: S82.851A Displaced trimalleolar fracture of right lower leg, initial encounter for closed fracture (principal); S93.431A Sprain of tibiofibular ligament of right ankle, initial encounter; W18.09XA Striking against other object with subsequent fall, initial encounter; Y92.008 Other place in unspecified non-institutional (private) residence as the place of occurrence of the external cause; I10 Essential (primary) hypertension; E66.9 Obesity, unspecified; Z68.32 Body mass index [BMI] 32.0-32.9, adult
CPT/HCPCS: 27814; 27829; 97163; A9270; C1713; J0690; J2795; J3370; J7120

== ENCOUNTER 2022-03-25 08:00 | Outpatient (CLI) | payer MEDICARE, OTHER ==
--- NOTE | 2022-03-25 15:23 | XRAY Report ---
PROCEDURE: Ankle 3 View RT INDICATIONS: RIGHT ANKEL ORIF TECHNIQUE: 3 views of the ankle were acquired. COMPARISON: 01/18/2022 FINDINGS: Bones: Interval fixation with distal fibular and medullary rosie, medial tibial compression plate and p ossibly a syndesmotic band. The fracture planes are blurred. There is bridging callus along the poste rior aspect of the fibula. The ankle mortise is intact. There are small osseous fragments in the soft tissues adjacent to the lateral and medial malleolar, likely fracture fragments. Soft tissues: No tibiotalar joint effusion. Achilles tendon appears normal. IMPRESSION: 1. Expected postoperative and healing changes of the right ankle trimalleolar fracture. Reviewed by: Alicia Dotson MD on 03/25/2022 3:22 PM PST Approved by: Alicia Dotson MD on 03/25/2022 3:22 PM [facility] Station ID: [id number]
== END 2022-03-25 23:59 | disposition home or self-care (01) ==
LOC: DI.WOS 08:00
PROVIDERS: ATTEND Orthopaedic Surgery
DX: S82.851D Displaced trimalleolar fracture of right lower leg, subsequent encounter for closed fracture with routine healing (principal)

== ENCOUNTER 2022-04-01 11:49 | Emergency (ER) | payer MEDICARE, OTHER ==
[2022-04-01 12:26] LABS: BASOPHILS # (AUTO) 0.1 10^3/uL (0.0-0.1); BASOPHILS % (AUTO) 1.1 %; EOSINOPHILS # (AUTO) 0.1 10^3/uL (0.0-0.7); HCT - HEMATOCRIT 47.3 % (37.0-47.0); HGB - HEMOGLOBIN 15.2 g/dL (12.0-16.0); LYMPHOCYTES # (AUTO) 1.9 10^3/uL (1.5-3.5); LYMPHOCYTES % (AUTO) 26.9 %; MEAN CORPUSCULAR HEMOGLOBIN 30.6 pg (27.0-31.0); MEAN CORPUSCULAR HGB CONC 32.1 g/dL (32.0-36.0); MEAN CORPUSCULAR VOLUME 95.4 fL (81.0-99.0); MONOCYTES # (AUTO) 0.5 10^3/uL (0.0-1.0); MONOCYTES % (AUTO) 6.3 %; NEUTROPHILS # (AUTO) 4.5 10^3/uL (1.5-6.6); NEUTROPHILS % (AUTO) 63.4 %; PLT - PLATELET COUNT 261 10^3/uL (130-450); RED BLOOD COUNT 4.96 10^6/uL (4.20-5.40); RED CELL DISTRIBUTION WIDTH 13.4 % (12.0-15.0); WHITE BLOOD COUNT 7.2 x10^3/uL (4.8-10.8)
[2022-04-01 12:45] LABS: ALBUMIN 3.8 g/dL (3.2-5.5); ALBUMIN/GLOBULIN RATIO 0.9 (1.0-2.2); BILIRUBIN,TOTAL 0.5 mg/dL (0.2-1.0); CALCIUM 9.6 mg/dL (8.5-10.3); CREATININE 0.7 mg/dL (0.4-1.0); POTASSIUM 3.9 mmol/L (3.5-5.0)
--- NOTE | 2022-04-01 12:54 | XRAY Report ---
PROCEDURE: Chest 1 View X-Ray INDICATIONS: Chest pain TECHNIQUE: One view of the chest was acquired. COMPARISON: None. FINDINGS: Surgical changes and devices: None. Lungs and pleura: No pleural effusions or pneumothorax. There is mild diffuse reticular nodular pulm onary opacity. Mediastinum: Mediastinal contours appear normal. Heart size is normal. Bones and chest wall: No suspicious bony lesions. Overlying soft tissues appear unremarkable. IMPRESSION: Mild atypical pneumonia. Reviewed by: Yasemin Alicia MD on 04/01/2022 12:53 PM PST Approved by: Yasemin Alicia MD on 04/01/2022 12:53 PM [facility] Station ID: [id number]
--- NOTE | 2022-04-01 14:17 | ED Physician Documentation ---
PD HPI CHEST PAIN - Stated complaint Stated Complaint: HIGH BP - Chief complaint Chief Complaint: Cardiac - History obtained from History obtained from: Patient - History of Present Illness Timing - onset: How many weeks ago (1) Timing - onset during: Other (she has noted her BP elevated above baseline usual 130-140 systolic over the past week. Has had recent ankle fracture with surgical repair a month ago. Has noted some redness and drainage from ankle wound the past 3-4 days. also out two of her meds - clonazepam and elavil - the past week.) Timing - details: Gradual onset, Waxing and waning (no cP nor headache. But has noted BP elevated gradually this week. [facility] Keflex for wound. No culture. BP elevated over 200 systolic there and told to come to ER for treatment.) Improved by: Rest Worsened by: No: Exertion, Inspiration Associated symptoms: No: Shortness of air, Nausea, Palpitations Similar symptoms before: Has not had sx before Recently seen: Clinic (ortho clinic for ankle fracture, repair and today had follow up appt due to concern of infection.) Review of Systems Constitutional: denies: Fever, Chills Cardiac: denies: Chest pain / pressure, Palpitations Respiratory: denies: Dyspnea GI: denies: Vomiting, Diarrhea Neurologic: denies: Focal weakness, Numbness PD PAST MEDICAL HISTORY - Past Medical History Cardiovascular: Hypertension, High cholesterol Respiratory: Shortness of breath Neuro: None Endocrine/Autoimmune: None GI: None 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 : Kidney stones HEENT: None Psych: Depression, Anxiety, Panic attacks, Post traumatic stress disorder, Claustrophobia Musculoskeletal: Osteoporosis Derm: None - Past Surgical History Past Surgical History: Yes Ortho: Other /DICTATING MACHINE TRANSCRIBER: Hysterectomy HEENT: Tonsil/Adenoidectomy - Present Medications Home Medications: Ambulatory Orders Medication Instructions Recorded Confirmed Amitriptyline HCl 75 mg PO HS 08/28/12 01/23/22 Gabapentin [Neurontin] 200 mg PO TID 08/28/12 01/23/22 amLODIPine [Norvasc] 10 mg PO DAILY 08/28/12 01/23/22 Metoprolol Succinate [Toprol Xl] 50 mg PO DAILY 08/23/21 01/23/22 clonazePAM [Clonazepam] 0.5 mg PO TID 01/18/22 01/23/22 lisinopriL [Zestril] 5 mg PO DAILY 01/18/22 01/23/22 oxyCODONE [Roxicodone] 5 mg PO Q4-6H #30 tablet 01/23/22 Amitriptyline [Elavil] 25 mg PO QPM 10 Days #10 tablet 04/01/22 Doxycycline Hyclate 100 mg PO BID 7 Days #14 cap 04/01/22 clonazePAM [Clonazepam] 0.5 mg PO TID 10 Days #30 tab 04/01/22 - Allergies Allergies/Adverse Reactions: Allergies Allergy/AdvReac Type Severity Reaction Status Date / Time ibuprofen AdvReac Severe Nausea Verified 04/01/22 11:58 aspirin AdvReac Mild Nausea Verified 04/01/22 11:58 codeine AdvReac Mild Nausea Verified 04/01/22 11:58 - Social History Does the pt smoke?: No Smoking Status: Never smoker Does the pt drink ETOH?: No Does the pt have substance abuse?: No - Immunizations Immunizations are current?: Yes - POLST Patient has POLST: No PD ED PE NORMAL - Vitals Vital signs reviewed: Yes - General General: Alert and oriented X 3, No acute distress, Well developed/nourished - Neck Neck: Supple, no meningeal sign, No adenopathy - Cardiac Cardiac: RRR, No murmur - Respiratory Respiratory: Clear bilaterally - Abdomen Abdomen: Soft, Non tender - Derm Derm: Normal color, Warm and dry - Extremities Extremities: No calf tenderness / cord, Other (right ankle with anterior surgical scar with mild dehiscence 2-3 mm and some faint drainage. no fluctuance in surrounding tissue. some redness/swelling. ) - Neuro Neuro: Alert and oriented X 3, No motor deficit, No sensory deficit, Normal speech Results - Vitals Vitals: Vital Signs - 24 hr 04/01/22 04/01/22 04/01/22 11:54 14:35 16:02 Temperature 36.5 C 36.6 C Heart Rate 107 H 90 76 Respiratory 16 14 16 Rate Blood Pressure 201/129 H 235/108 H 189/100 H O2 Saturation 96 96 98 Oxygen O2 Source Room air - Labs Labs: Microbiology 04/01/22 15:05 Wound Culture - Preliminary Ankle - Right Laboratory Tests 04/01/22 04/01/22 04/01/22 12:20 12:20 12:20 WBC 7.2 RBC 4.96 Hgb 15.2 Hct 47.3 H MCV 95.4 MCH 30.6 MCHC 32.1 RDW 13.4 Plt Count 261 MPV 11.0 H Neut # (Auto) 4.5 Lymph # (Auto) 1.9 [place] # (Auto) 0.5 Eos # (Auto) 0.1 Baso # (Auto) 0.1 Absolute Nucleated RBC 0.00 Nucleated RBC % 0.0 Sodium 140 Potassium 3.9 Chloride 103 Carbon Dioxide 26 Anion Gap 11.0 BUN 12 Creatinine 0.7 Estimated GFR (MDRD) 81 L Glucose 126 H Calcium 9.6 Total Bilirubin 0.5 AST 29 ALT 22 Alkaline Phosphatase 82 Troponin I High Sens 14.1 Total Protein 8.0 Albumin 3.8 Globulin 4.2 Albumin/Globulin Ratio 0.9 L Lipase 67 H PD MEDICAL DECISION MAKING - ED course Complexity details: reviewed old records, re-evaluated patient (bp decreasing and is 189/100 at discharge. This is appropriate gradual decrease. ), considered differential (has some drainage from ankle wound, so i got culture. I would be more concerned for staph, so will add doxy to the ortho keflex rx. her bp is usually controlled on meds, so presume effect of pain, developing infection and out of anxiety meds leading to increase. ), d/w patient ED course: The patient states she is on several blood pressure medicines and her blood pressure typically has been 1 30-1 40 systolic up until the last week or 2. She has increased pain with some drainage from the right ankle but no systemic symptoms such as fever nausea or malaise arthralgias. She was seen in Ortho office today with concern for a wound infection. Prescription was transmitted to [facility] in [place]. However they noted her blood pressure to be elevated at 230/130 and referred her to the ER for treatment. The patient denies any headache, chest pain, dyspnea. She states her blood pressure had been good until this past week. She has noticed some infection at the ankle with drainage. She had also run out of her clonazepam medication a week ago and has been try to get a refill through her primary care. I looked at the pharmacy prescription record and her last prescription for the clonazepam was 5 weeks ago so true that she would have run out. This may be contributing to some of her elevated blood pressure and anxiousness. I discussed with the patient that we typically would not aggressively treat elevated blood pressure without symptoms. We could have her increase her dose of metoprolol as it is only medium dose at this time. I will prescribe her the clonazepam for 10 days in order for her to facilitate refill through her primary care. I did do a culture of the ankle wound. Given a surgical site drainage, I would be more inclined to treat for staph/MRSA so in addition to the cephalexin prescribed by orthopedics, I would also start her on doxycycline for now pending culture results. Departure - Departure Disposition: Home, Self Care Clinical Impression: Has run out of medications, Wound infection after surgery, Elevated blood pressure reading Condition: Stable Record reviewed to determine appropriate education?: Yes Follow-Up: Martin Wolf DO [Primary Care Provider] - Momo Escamilla MD [Provider Admit Priv/Credential] - Prescriptions: clonazePAM [Clonazepam] 0.5 mg PO TID 10 Days #30 tab Doxycycline Hyclate 100 mg PO BID 7 Days #14 cap Amitriptyline [Elavil] 25 mg PO QPM 10 Days #10 tablet Comments: Your blood pressure was elevated in the orthopedic office and here. However as you describe it being normal recently up until the last week or so, I am inclined to think the elevated pressure now is related to pain and lack of your clonazepam the past week and also the developing infection at the ankle. For now I would have you double your metoprolol from 50 mg once a day to twice a day and maintain your other medications the same for blood pressure. Of a prescription for your clonazepam and amitriptyline for 10 days to allow time for you to get refills through your primary care. Start the cephalexin antibiotic prescribed by the orthopedics and add doxycycline as well. I did do a culture of your ankle drainage and this will result in 2 to 3 days to better identify the organism and allow us to decide which antibiotic of the 2 to continue with. I sent your prescriptions to [facility] in [place]. Follow-up with orthopedics as planned. Discharge Date/Time: 04/01/22 16:13
[2022-04-01] MEDS ORDERED: METOPROLOL SUCCINATE 50 MG TABLET PO STA (14:36)
[2022-04-01] MEDS ORDERED: clonazePAM 0.5 MG TABLET PO STA (14:36)
[2022-04-01] MEDS ORDERED: cephALEXin 250 MG CAPSULE PO STA (15:07)
[2022-04-01] MEDS ORDERED: DOXYCYCLINE 100 MG TABLET PO STA (15:07)
[2022-04-01 16:02] VITALS: BP 189/100
== END 2022-04-01 16:13 | disposition home or self-care (01) ==
LOC: ED 11:49
DX: I10 Essential (primary) hypertension (principal); T42.4X6A Underdosing of benzodiazepines, initial encounter; Z91.138 Patient's unintentional underdosing of medication regimen for other reason; T81.49XA Infection following a procedure, other surgical site, initial encounter; Y83.9 Surgical procedure, unspecified as the cause of abnormal reaction of the patient, or of later complication, without mention of misadventure at the time of the procedure
CPT/HCPCS: 36415; 71045; 80053; 83690; 84484; 85025; 87070; 87077; 87181; 87205; 93005; 99284; A9270

== ENCOUNTER 2022-05-22 10:42 | Outpatient (CLI) | payer MEDICARE, OTHER | END 2022-05-22 10:43 | disposition critical access hospital (66) | LOC: EMS 10:42 | DX: R41.82 Altered mental status, unspecified (principal); I10 Essential (primary) hypertension; R07.81 Pleurodynia; W18.30XA Fall on same level, unspecified, initial encounter; Y92.007 Garden or yard of unspecified non-institutional (private) residence as the place of occurrence of the external cause | CPT/HCPCS: A0425; A0429 ==

== ENCOUNTER 2022-05-22 10:54 | Observation (INO) | payer MEDICARE, OTHER ==
--- NOTE | 2022-05-22 11:26 | ED Physician Documentation ---
History of Present Illness - Stated complaint Stated Complaint: MHE - Chief complaint Chief Complaint: MHE - Additonal information Additional information: History is obtained from EMS record, evaluation with the patient as well as review of previous H&P and discharge summary from previous admissions. 81-year-old female was brought to the emergency department for evaluation of hallucinations. The patient states that she has been hearing a little girl who disappeared 6 years ago under her porch. She also states that it may be her parrot that she lost also about 6 years ago. She states she was crawling under her porch trying to find the little girl. She is able to tell me that she is at [facility] emergency department, she knows it is 2022 and the year is April. She believes that she is hallucinating but she is unsure why. In review of a late June and early August discharge summary the patient was hospitalized here for an acute psychosis and delirium. Initially it was thought to be due to a urinary tract infection however when antibiotics and subsequent evaluation that the UTI was infected contamination did not reveal an improvement in delirium, further evaluation yielded that she may be withdrawing from benzodiazepines. She was placed on a fixed benzo and had improvement very quickly with her mental status. In review of the patient's ANKITA it appears that she had been regularly filling clonazepam, 0.5 mg tablets 84 every month but has not filled since April 06, 2022 Further history is limited from patient. In point she denies recent fevers. No cough. She states her ankle that she broke quite some time ago continues to hurt. She has had no nausea or vomiting. Review of Systems Unable to obtain: Other (Delirium) PD PAST MEDICAL HISTORY - Past Medical History Cardiovascular: Hypertension, High cholesterol Respiratory: Shortness of breath Neuro: None Endocrine/Autoimmune: None GI: None SMUTTER: None : Kidney stones HEENT: None Psych: Depression, Anxiety, Panic attacks, Post traumatic stress disorder, Claustrophobia Musculoskeletal: Osteoporosis Derm: None - Past Surgical History Past Surgical History: Yes Ortho: Other /SMUTTER: Hysterectomy HEENT: Tonsil/Adenoidectomy - Present Medications Home Medications: Ambulatory Orders Medication Instructions Recorded Confirmed Amitriptyline HCl 75 mg PO HS 08/28/12 01/23/22 Gabapentin [Neurontin] 200 mg PO TID 08/28/12 01/23/22 amLODIPine [Norvasc] 10 mg PO DAILY 08/28/12 01/23/22 Metoprolol Succinate [Toprol Xl] 50 mg PO DAILY 08/23/21 01/23/22 clonazePAM [Clonazepam] 0.5 mg PO TID 01/18/22 01/23/22 lisinopriL [Zestril] 5 mg PO DAILY 01/18/22 01/23/22 oxyCODONE [Roxicodone] 5 mg PO Q4-6H #30 tablet 01/23/22 Amitriptyline [Elavil] 25 mg PO QPM 10 Days #10 tablet 04/01/22 Doxycycline Hyclate 100 mg PO BID 7 Days #14 cap 04/01/22 clonazePAM [Clonazepam] 0.5 mg PO TID 10 Days #30 tab 04/01/22 - Allergies Allergies/Adverse Reactions: Allergies Allergy/AdvReac Type Severity Reaction Status Date / Time ibuprofen AdvReac Severe Nausea Verified 05/22/22 11:08 aspirin AdvReac Mild Nausea Verified 05/22/22 11:08 codeine AdvReac Mild Nausea Verified 05/22/22 11:08 - Social History Does the pt smoke?: No Smoking Status: Never smoker Does the pt drink ETOH?: No Does the pt have substance abuse?: No - Immunizations Immunizations are current?: Yes - POLST Patient has POLST: No PD ED PE NORMAL - General General: Alert and oriented X 3 (Endorses hearing a young girl's voice in her head), No acute distress, Well developed/nourished ([place] hair. Elderly appearance and appears older than stated age) - HEENT HEENT: Atraumatic, Moist mucous membranes - Neck Neck: Supple, no meningeal sign, No adenopathy - Cardiac Cardiac: RRR, No murmur - Respiratory Respiratory: No respiratory distress, Clear bilaterally - Abdomen Abdomen: Normal bowel sounds, Soft - Derm Derm: Normal color, Warm and dry - Extremities Extremities: No deformity, No tenderness to palpate, Normal ROM s pain, Other (Well-healed scar on the right ankle without swelling or erythema.) - Neuro Neuro: Alert and oriented X 3 (Oriented to person place and time; Endorses hearing the voice of a small girl in her head. Denies visual hallucinations), schedule announcer 2-12 intact Eye Opening: Spontaneous Motor: Obeys Commands Verbal: Oriented GCS Score: 15 - Psych Psych: Other (Endorses hearing the voice of a small girl that she believes to be in her head. She also is concerned it could be her parent. No SI or HI) Results - Vitals Vitals: Vital Signs - 24 hr 05/22/22 11:01 Temperature 37.2 C Heart Rate 95 Respiratory 20 Rate Blood Pressure 194/107 H O2 Saturation 99 Oxygen O2 Source Room air - Labs Labs: Laboratory Tests 05/22/22 05/22/22 05/22/22 11:35 11:45 11:45 WBC 7.2 RBC 4.62 Hgb 14.2 Hct 43.7 MCV 94.6 MCH 30.7 MCHC 32.5 RDW 13.1 Plt Count 214 MPV 11.1 H Neut # (Auto) 4.8 Lymph # (Auto) 1.7 [place] # (Auto) 0.6 Eos # (Auto) 0.1 Baso # (Auto) 0.1 Absolute Nucleated RBC 0.00 Nucleated RBC % 0.0 Sodium 136 Potassium 3.4 L Chloride 98 L Carbon Dioxide 26 Anion Gap 12.0 BUN 12 Creatinine 0.8 Estimated GFR (MDRD) 69 L Glucose 120 H Calcium 9.4 Total Bilirubin 0.8 AST 33 ALT 27 Alkaline Phosphatase 82 Total Protein 8.0 Albumin 4.2 Globulin 3.8 Albumin/Globulin Ratio 1.1 Lipase 31 Urine Color YELLOW Urine Clarity SL. CLOUDY Urine pH 7.0 Ur Specific [place] 1.015 Urine Protein NEGATIVE Urine Glucose (UA) NEGATIVE Urine Ketones TRACE Urine Occult Blood NEGATIVE Urine Nitrite NEGATIVE Urine Bilirubin NEGATIVE Urine Urobilinogen 0.2 (NORMAL) Ur Leukocyte Esterase MODERATE H Urine RBC 6-10 H Urine WBC >25 H Ur Squamous Epith Cells FEW Squamous Urine Bacteria Moderate H Ur Microscopic Review INDICATED Urine Culture Comments INDICATED Salicylates < 6.0 Urine Opiates Screen NEGATIVE Ur Oxycodone Screen NEGATIVE Urine Methadone Screen NEGATIVE Ur Propoxyphene Screen NEGATIVE Acetaminophen < 10 L Ur Barbiturates Screen NEGATIVE Ur Tricyclics Screen POSITIVE H Ur Phencyclidine Scrn NEGATIVE Ur Amphetamine Screen NEGATIVE U Methamphetamines Scrn NEGATIVE U Benzodiazepines Scrn NEGATIVE Urine Cocaine Screen NEGATIVE U Cannabinoids Screen NEGATIVE Ethyl Alcohol < 5.0 - Rads (name of study) cxr Radiology: Final report received (Chronic lung parenchymal changes. Mild cardiomegaly and pulmonary vascular congestion with trace amount of bilateral pleural effusions. No definite focal infiltrate. No gross pneumothorax) CT head Radiology: EMP read indepedently (No acute Intracranial findings. Moderate cerebral volume loss) PD Medical Decision Making - ED course Complexity details: reviewed results, re-evaluated patient, considered differential, d/w patient ED course: 81-year-old female presents the emergency department for evaluation of acute delirium. She actively hears a young girl that she believes to be under her porch. She attempted to crawl under the porch to find the young girl. She has had a similar presentation for acute delirium in late July and early August also at this hospital. At that time it was thought to be due to a urinary infection but subsequently was felt to be due to benzodiazepine withdrawal. In review of the patient's ANKITA I do see that the patient regularly has clonazepam filled each month; 84 tablets 0.5 mg each. The last time they were filled was April 06 2022. When I asked the patient if she should be taking it she says yes and when I asked when the last time she took it she says its been quite sometime. She is unable to determine or tell me why she has not taken it. The patient appears nonfocal with no slurred speech, facial droop or arm or leg weakness. Her urinalysis today again suggests acute UTI and given the delirium she was administered 1 g IV of ceftriaxone. The CT of her head showed no acute focal findings to suggest acute stroke or infarction. My review of her CBC and electrolytes is also without findings to suggest acute infection or worrisome findings such as leukocytosis, severe anemia, renal function or markedly altered glucose. Without fever or leukocytosis I have low suspicion for an acute encephalitis/meningitis. Interestingly her urine drug screen is negative for benzodiazepines. Considering the history of benzo use, acute withdrawal at this juncture is felt to be the most likely cause for her delirium. I did administer 1 mg of clonazepam orally. However until the acute delirium resolves she is not likely safe for discharge therefore I have spoken with our hospitalist Dr. Carolina who graciously agrees to bring the patient in for further evaluation and treatment. Respiratory PCR is pending. Further care to be dictated by the hospitalist team. Departure - Departure Disposition: ED Place in Observation Clinical Impression: Acute delirium, History of benzodiazepine use Condition: Serious
[2022-05-22] MEDS ORDERED: clonazePAM 0.5 MG TABLET PO STA (11:37)
[2022-05-22 11:49] LABS: MUDS CUTOFF CONCENTRATIONS CUTOFF CONC BELOW:
[2022-05-22 11:50] LABS: BASOPHILS # (AUTO) 0.1 10^3/uL (0.0-0.1); BASOPHILS % (AUTO) 0.8 %; EOSINOPHILS # (AUTO) 0.1 10^3/uL (0.0-0.7); HCT - HEMATOCRIT 43.7 % (37.0-47.0); HGB - HEMOGLOBIN 14.2 g/dL (12.0-16.0); LYMPHOCYTES # (AUTO) 1.7 10^3/uL (1.5-3.5); LYMPHOCYTES % (AUTO) 23.6 %; MEAN CORPUSCULAR HEMOGLOBIN 30.7 pg (27.0-31.0); MEAN CORPUSCULAR HGB CONC 32.5 g/dL (32.0-36.0); MEAN CORPUSCULAR VOLUME 94.6 fL (81.0-99.0); MEAN PLATELET VOLUME 11.1 fL (7.9-10.8); MONOCYTES # (AUTO) 0.6 10^3/uL (0.0-1.0); MONOCYTES % (AUTO) 8.2 %; NEUTROPHILS # (AUTO) 4.8 10^3/uL (1.5-6.6); PLT - PLATELET COUNT 214 10^3/uL (130-450); RED BLOOD COUNT 4.62 10^6/uL (4.20-5.40); RED CELL DISTRIBUTION WIDTH 13.1 % (12.0-15.0); WHITE BLOOD COUNT 7.2 x10^3/uL (4.8-10.8)
[2022-05-22 11:51] LABS: BILIRUBIN,URINE NEGATIVE (NEGATIVE); GLUCOSE, URINE (UA) NEGATIVE (NEGATIVE); KETONES,URINE (UA) TRACE mg/dL (NEGATIVE); LEUKOCYTE ESTERASE, URINE MODERATE (NEGATIVE); NITRITE,URINE NEGATIVE (NEGATIVE); OCCULT BLOOD,URINE NEGATIVE (NEGATIVE); PROTEIN,URINE NEGATIVE (NEGATIVE); UROBILINOGEN,URINE 0.2 (NORMAL) E.U./dL (NORMAL)
--- NOTE | 2022-05-22 11:59 | XRAY Report ---
PROCEDURE: Chest 1 View X-Ray INDICATIONS: delerium TECHNIQUE: One view of the chest was acquired. COMPARISON: 04/01/2022 and 01/20/2022. FINDINGS: Surgical changes and devices: None. Lungs and pleura: Mild pulmonary vascular congestion is seen. Chronic interstitial lung parenchymal changes in in bilateral lung johnston are seen. No definite focal infiltrate. Trace amount of bilateral pleural effusion is likely present. No gross pneumothorax. Mediastinum: Mediastinal contours appear normal. Heart size is enlarged. Bones and chest wall: No suspicious bony lesions. Overlying soft tissues appear unremarkable. IMPRESSION: Chronic lung parenchymal changes. Mild cardiomegaly and pulmonary vascular congestion with trace amou nt of bilateral pleural effusion. No definite focal infiltrate. No gross pneumothorax. Reviewed by: Francisco Saenz MD on 05/22/2022 11:57 AM PST Approved by: Francisco Saenz MD on 05/22/2022 11:57 AM PST Station ID: [id number]
[2022-05-22 12:03] LABS: AMPHETAMINE SCREEN,URINE NEGATIVE (NEGATIVE); BACTERIA,URINE Moderate /HPF (None Seen); BENZODIAZEPINES SCREEN, URINE NEGATIVE (NEGATIVE); CLARITY,URINE SL. CLOUDY (CLEAR); COCAINE SCREEN URINE NEGATIVE (NEGATIVE); METHAMPHETAMINES SCREEN, URINE NEGATIVE (NEGATIVE); OPIATE SCREEN, URINE NEGATIVE (NEGATIVE); SQUAMOUS EPITHELIAL CELL,UR FEW Squamous (<= Few); THC CANNABINOID SCREEN, URINE NEGATIVE (NEGATIVE); WBC,URINE >25 /HPF (0-5)
[2022-05-22 12:04] LABS: BARBITURATE SCREEN,UR NEGATIVE (NEGATIVE); METHADONE SCREEN, URINE NEGATIVE (NEGATIVE); OXYCODONE SCREEN, URINE NEGATIVE (NEGATIVE); PROPOXYPHENE SCREEN, URINE NEGATIVE (NEGATIVE); TRICYCLIC ANTIDEPRESSANT,URINE POSITIVE (NEGATIVE)
[2022-05-22] MEDS ORDERED: LIDOCAINE 1% 2 ML VIAL MC ONE (12:08)
[2022-05-22] MEDS ORDERED: cefTRIAXone 1 GM VIAL IM STA (12:08)
[2022-05-22 12:09] LABS: ACETAMINOPHEN < 10 ug/mL (10-30); ALBUMIN 4.2 g/dL (3.2-5.5); ALBUMIN/GLOBULIN RATIO 1.1 (1.0-2.2); ALKALINE PHOSPHATASE 82 IU/L (42-121); ALT ALANINE AMINOTRANSFERASE 27 IU/L (10-60); AST ASPARTATE AMINOTRANSFERASE 33 IU/L (10-42); BILIRUBIN,TOTAL 0.8 mg/dL (0.2-1.0); BUN - BLOOD UREA NITROGEN 12 mg/dL (6-20); CALCIUM 9.4 mg/dL (8.5-10.3); CARBON DIOXIDE - CO2 26 mmol/L (21-32); CHLORIDE 98 mmol/L (101-111); CREATININE 0.8 mg/dL (0.4-1.0); ETOH - ETHANOL < 5.0 mg/dL; GFR - MDRD 69 (>89); GLUCOSE 120 mg/dL (70-100); LIPASE 31 U/L (22-51); POTASSIUM 3.4 mmol/L (3.5-5.0); SALICYLATE < 6.0 mg/dL; SODIUM 136 mmol/L (135-145)
[2022-05-22] MEDS ORDERED: cefTRIAXone 1 GM in SODIUM CHLORIDE 0.9% MINIBAG 100 ML IV STA (12:19)
--- NOTE | 2022-05-22 12:28 | CT Report ---
PROCEDURE: HEAD WO INDICATIONS: acute delerium TECHNIQUE: Noncontrast 4.5 mm thick angled axial sections acquired from the foramen magnum to the vertex. For r adiation dose reduction, the following was used: automated exposure control, adjustment of mA and/or kV according to patient size. COMPARISON: 08/22/2021 FINDINGS: Image quality: Good CSF spaces: Basal cisterns are patent. Lateral ventricles are symmetric. Volume: Vascular calcifications. Periventricular white matter disease is commonly seen with chronic m icroangiopathy. Volume loss is present. These findings are moderate. Brain: No intracranial hemorrhage. Tavera-white differentiation is grossly maintained. Craniofacial structures: No displaced fracture. Sinuses are clear. Orbits are intact. IMPRESSION: No acute intracranial abnormality. Reviewed by: Han Goldsmith MD on 05/22/2022 12:26 PM PST Approved by: Han Goldsmith MD on 05/22/2022 12:26 PM PST Station ID: [id number]
[2022-05-22 12:40] LABS: B. PARAPERTUSSIS- RESP PCR PAN NOT DETECTED; B. PERTUSSIS- RESP PCR PANEL NOT DETECTED; C. PNEUMONIAE- RESP PCR PANEL NOT DETECTED; CORONAVIRUS 229E-RESP PCR NOT DETECTED; CORONAVIRUS HKU1-RESP PCR NOT DETECTED; CORONAVIRUS NL63-RESP PCR NOT DETECTED; CORONAVIRUS OC43-RESP PCR NOT DETECTED; HUMAN METAPNEUMOVIRUS NOT DETECTED; INFLUENZA A- RESP PCR PANEL NOT DETECTED; INFLUENZA B - RESP PCR PANEL NOT DETECTED; M. PNEUMONIAE- RESP PCR PANEL NOT DETECTED; PARAINFLUENZA VIRUS 1 NOT DETECTED; PARAINFLUENZA VIRUS 2 NOT DETECTED; PARAINFLUENZA VIRUS 3 NOT DETECTED; PARAINFLUENZA VIRUS 4 NOT DETECTED; RHINOVIRUS/ENTEROVIRUS NOT DETECTED; RSV- RESP PCR PANEL NOT DETECTED; SARS-CoV-2 -RESP PCR PANEL NOT DETECTED
[2022-05-22] MEDS ORDERED: SODIUM CHLORIDE FLUSH 0.9% 10 ML SYRINGE IVP PRN (14:38)
[2022-05-22] MEDS ORDERED: ACETAMINOPHEN 325 MG TABLET PO PRN (14:38)
[2022-05-22] MEDS ORDERED: ONDANSETRON 4 MG/2 ML VIAL IVP PRN (14:38)
--- NOTE | 2022-05-22 17:10 | HISTORY & PHYSICAL EXAMINATION ---
Chief Complaint - Chief Complaint Chief Complaint: Audible hallucinations History of Present Illness - Admitted From Admitted From:: ED - History Obtained From History obtained from: ED provider, and pt had several lucid moments to describe her sx - History of Present Illness HPI Comment/Other: This is a 81-year-old white female with a history of hypertension, hyperlipidem ia, kidney stone, depression, anxiety, panic attack, PTSD, claustrophobia, who called an ambulance and was brought into our ER by EMS due to auditory hallucination. She had a similar presentation and had been admitted for delirium and visual hallucinations in July 2021 which was first felt to be from a UTI then more likely felt to be from benzodiazepine withdrawal (she had stopped taking her Klonipin). She was then restarted on scheduled benzodiazepine and in 48 hours was back to her usual mental status. Today the patient was crawling around outdoors under her porch after hearing a child's voice. She then presented to the ER with complaints of these audible hallucinations and stating that she had to find a lost child. There was no syncope, trauma or other complaints. In the ED today, she had a head CT done that was unremarkable. Her last Klonopin prescription was filled over a month ago and the ED provider questioned the patient if she was taking this medicine and the patient answered she was not. The patient received 1 dose of oral Klonopin then in the ED. The ED provider spoke to me and requested that we place this patient in Observation, on the Hospitalist service, to further treat another probable episode of altered mental status/delirium/hallucinations, caused by benzodiazepine withdrawal. When I speak to the patient, she does remember crawling under her porch, admits that she was a hearing the child's voice then states "probably the child has been found by now". She describes that occasionally her also can be visualized to her. She knows where she is and her personal information but not the date or time. History - Past Medical History Cardiovascular: reports: Hypertension, High cholesterol Respiratory: reports: Shortness of breath Neuro: reports: None Endocrine/Autoimmune: reports: None GI: reports: None MAKER UP FOLDING: reports: None : reports: Kidney stones HEENT: reports: None Psych: reports: Depression, Anxiety, Panic attacks, Post traumatic stress disorder, Claustrophobia Musculoskeletal: reports: Osteoporosis Derm: reports: None MRSA Hx?: No - Past Surgical History Ortho: reports: Other /MAKER UP FOLDING: reports: Hysterectomy HEENT: reports: Tonsil/Adenoidectomy - Family & Social History Family History Comment/Other: Given patient's hallucination, patient was unable to provide reliable family medical history Social History Notes: She reported she never smoked but she reported she had alcohol problem before - POLST Patient has POLST: No Meds/Allgy - Home Medications Home Medications: Ambulatory Orders Medication Instructions Recorded Confirmed Amitriptyline HCl 75 mg PO HS 08/28/12 05/22/22 Gabapentin [Neurontin] 200 mg PO TID 08/28/12 05/22/22 amLODIPine [Norvasc] 10 mg PO DAILY 08/28/12 05/22/22 Metoprolol Succinate [Toprol Xl] 50 mg PO DAILY 08/23/21 05/22/22 lisinopriL [Zestril] 5 mg PO DAILY 01/18/22 05/22/22 clonazePAM [Clonazepam] 0.5 mg PO TID PRN 05/22/22 05/22/22 - Allergies Allergies/Adverse Reactions: Allergies Allergy/AdvReac Type Severity Reaction Status Date / Time ibuprofen AdvReac Severe Nausea Verified 05/22/22 11:08 aspirin AdvReac Mild Nausea Verified 05/22/22 11:08 codeine AdvReac Mild Nausea Verified 05/22/22 11:08 Review of Systems - All Other Systems All Other Systems: reports: Other (No extra information was obtained other than what is in HPI, due to the patient's current altered mental status) Exam - Vital Signs Vital Signs: Vital Signs x48h Temp Pulse Pulse Resp BP BP Pulse Ox 05/22/22 16:00 36.7 C 83 24 158/68 H 100 05/22/22 11:01 37.2 C 95 20 194/107 H 99 - Physical Exam General Appearance: positive: No acute distress, Other (Obese. Has pink hair.) Eyes Bilateral: positive: Normal inspection, No lid inflammation ENT: positive: No signs of dehydration, Other (edentulous) Neck: positive: Nml inspection, No JVD Respiratory: positive: No respiratory distress Cardiovascular: positive: No murmur Abdomen: positive: Non-tender, No distention, Other (Obese) Skin: positive: Warm, Dry Extremities: positive: No pedal edema Neurologic/Psychiatric: positive: Motor nml, Disoriented to time (She thought it was 1942, the said 2029.), Other (She admits she is still hearing the girl's voice occaisionally.) Conclusion/Plan - Problem List (1) Acute delirium Conclusion/Plan: The patient has stable vital signs, stable labs and presentation that is similar to July 2021 when she stopped taking her Klonopin. She was then treated with scheduled benzodiazepines after a telepsych evaluation was done then. Her sx were consistent with benzodiazepine withdrawal. She has similar presentation now Plan: Will resume her usual dose of Klonopin and other psych meds, once the medication list is reconciled by pharmacy (2) History of benzodiazepine use Conclusion/Plan: As per history. Plan: Resume her usual medications at their doses (3) HTN (hypertension) Conclusion/Plan: Plan: Will continue her home meds of Amlodipine and Lisinopril - Lab Results Fish Bones: 05/22/22 11:45 05/22/22 11:45
[2022-05-22] MEDS ORDERED: AMITRIPTYLINE 25 MG TABLET PO SCH (21:00)
[2022-05-22] MEDS: GABAPENTIN 100 MG CAPSULE PO SCH (21:24)
[2022-05-22] MEDS: clonazePAM 0.5 MG TABLET PO SCH (21:24)
[2022-05-22] MEDS: SODIUM CHLORIDE FLUSH 0.9% 10 ML SYRINGE IVP SCH (22:47)
[2022-05-23] MEDS: SODIUM CHLORIDE FLUSH 0.9% 10 ML SYRINGE IVP SCH ×2 (01:23→06:00)
[2022-05-23] MEDS: GABAPENTIN 100 MG CAPSULE PO SCH (06:00)
[2022-05-23] MEDS ORDERED: hydrALAZINE 10 MG TABLET PO PRN (06:31)
[2022-05-23] MEDS: clonazePAM 0.5 MG TABLET PO SCH (08:31)
[2022-05-23] MEDS ORDERED: lisinopriL 5 MG TABLET PO SCH (09:00)
[2022-05-23] MEDS ORDERED: METOPROLOL SUCCINATE 50 MG TABLET PO SCH (09:00)
[2022-05-23] MEDS ORDERED: amLODIPine 5 MG TABLET PO SCH (09:00)
--- NOTE | 2022-05-23 11:43 | Discharge Plan ---
Discharge Plan Problem Reviewed?: Yes Disposition: 06 Home Health Service Condition: Stable Prescriptions: clonazePAM [KlonoPIN] 0.5 mg PO BID #60 tab Diet: Soft Activity Restrictions: Activity as Tolerated Shower Restrictions: No Driving Restrictions: Yes Assistance Devices: Walker Instruction Topics: ED Withdrawal Benzodiazepine Health Concerns: You needed to be in the hospital to resume taking your Klonopin medication on a scheduled basis. When you stop taking Klonopin, you get auditory and visual hallucinations. You were crawling around under your porch because of those hallucinations, and you could have sustained greater injuries. A new order for home health services was submitted today: to have a nurse come to the house, to check that you are getting your medicines correctly, and a bath aide to come help you in the house. Your son Gabriel needs to be in contact with these home health providers, which was requested in the order. Resume taking your usual pre-hospital medications, HOWEVER, your Klonopin medication should now be taken twice a day, on a schedule, not 3 times daily and only if needed (for anxiety). This new order was electronically sent to your [facility] in [place], and will be communicated to your Primary Care provider, Dr Wolf. Plan of Treatment: As above. Care Goals: Improvement in symptoms and stabilization are the goals. Assessment: These written discharge instructions are provided as a reminder for you, and both of your sons. Additional Instructions or Follow Up instructions: If there are new or worsening symptoms, call Dr. Wolf's office for advice or come to the ER. Follow-Up Care: Home Health - RN No Smoking: If you smoke, Please STOP! Call for help. Follow-up with: Martin Wolf DO [Primary Care Provider] -
--- NOTE | 2022-05-23 11:50 | DISCHARGE SUMMARY ---
Discharge Summary Admit Date: 05/22/22 Discharge Date: 05/23/22 Discharging Provider: Dr Lety Carolina Primary Care Provider: Dr Martin Wolf Code Status: Attempt Resuscitation Condition at Discharge: Stable Discharge Disposition: Home Health Service - [facility] History of Present Illness: This is a 81-year-old white female with a history of hypertension, h yperlipidemia, kidney stone, depression, anxiety, panic attack, PTSD, claustrophobia, who called an ambulance and was brought into our ER by EMS due to auditory hallucination. She had a similar presentation and had been admitted for delirium and visual hallucinations in July 2021 which was first felt to be from a UTI then more likely felt to be from benzodiazepine withdrawal (she had stopped taking her Klonipin). She was then restarted on scheduled benzodiazepine and in 48 hours was back to her usual mental status. Today the patient was crawling around outdoors under her porch after hearing a child's voice. She then presented to the ER with complaints of these audible hallucinations and stating that she had to find a lost child. There was no syncope, trauma or other complaints. In the ED today, she had a head CT done that was unremarkable. Her last Klonopin prescription was filled over a month ago and the ED provider questioned the patient if she was taking this medicine and the patient answered she was not. The patient received 1 dose of oral Klonopin then in the ED. The ED provider spoke to me and requested that we place this patient in Observation, on the Hospitalist service, to further treat another probable episode of altered mental status/delirium/hallucinations, cau sed by benzodiazepine withdrawal. When I speak to the patient, she does remember crawling under her porch, admits that she was a hearing the child's voice then states "probably the child has been found by now". She describes that occasionally her also can be visualized to her. Today, she knows where she is and her personal information but not the date or time. - HOSPITAL COURSE Hospital Course: (1) Acute delirium This is her second episode of presenting with hallucinations caused by benzodiazepine withdrawal. Here, she was started on Klonopin scheduled dosing twice daily, not prn TID, and after a day and a half she had no further hallucinations. I spoke to the responsible son Gabriel by phone and he reported that she was doing well when a home health RN and bath aide had been provided, and the RN organized her meds. That service stopped sometime ago. He also reported that the name of the agency was unknown to him because no nurses or bath aides ever communicated with him, possibly they communicated with Peter (the disabled son who lives in the house with the patient). An new order for a Home Health agency RN and bath aide was once again submitted. (2) History of benzodiazepine use As per history. This is her second episode of presenting with hallucinations caused by benzodiazepine withdrawal. Here, she was restarted on Klonopin, with scheduled dosing BID, and after a day and a half she had no further hallucinations. She was discharged home, under the care of her responsible son Gabriel, who planned to stay with her and his disabled brother Peter, for a few days. A prescription was ordered to take the Klonopin twice daily on a schedule, not TID prn. I reviewed this with the son Gabriel. I recommend that this is the way she continue to take her benzodiazepine, since prn dosing and 3 times daily dosing may be adding to her problems. (3) HTN (hypertension) We continued her home meds of Amlodipine and Lisinopril - ALLERGIES Allergies/Adverse Reactions: Allergies Allergy/AdvReac Type Severity Reaction Status Date / Time ibuprofen AdvReac Severe Nausea Verified 05/22/22 11:08 aspirin AdvReac Mild Nausea Verified 05/22/22 11:08 codeine AdvReac Mild Nausea Verified 05/22/22 11:08 - MEDICATIONS Home Medications: Ambulatory Orders Medication Instructions Recorded Confirmed Amitriptyline HCl 75 mg PO HS 08/28/12 05/22/22 Gabapentin [Neurontin] 200 mg PO TID 08/28/12 05/22/22 amLODIPine [Norvasc] 10 mg PO DAILY 08/28/12 05/22/22 Metoprolol Succinate [Toprol Xl] 50 mg PO DAILY 08/23/21 05/22/22 lisinopriL [Zestril] 5 mg PO DAILY 01/18/22 05/22/22 clonazePAM [KlonoPIN] 0.5 mg PO BID #60 tab 05/23/22 - PHYSICAL EXAM AT DISCHARGE General Appearance: positive: No acute distress, Alert, Other (Disheveled, has pink hair) Eyes Bilateral: positive: Normal inspection, EOMI ENT: positive: ENT inspection nml, No signs of dehydration Neck: positive: Nml inspection, No JVD Respiratory: positive: No respiratory distress, Breath sounds nml Cardiovascular: positive: Regular rate & rhythm, No murmur Abdomen: positive: Non-tender, Nml bowel sounds, Other (obese) Skin: positive: Warm, Dry Extremities: positive: Non-tender, No pedal edema Neurologic/Psychiatric: positive: Oriented x3, Motor nml - LABS Result Diagrams: 05/22/22 11:45 05/22/22 11:45 - DIAGNOSTIC IMAGING Diagnostic Imaging Results: Final report reviewed - TIME SPENT Time Spent in Discharge (Minutes): 30
--- NOTE | 2022-05-23 11:51 | PHARMACY PROGRESS NOTE ---
- Best Possible Medication History Admit Date and Time: 05/22/22 1434 Processed by: Pharmacy Medication History completed: Yes Patient Interview: Pt unable to participate Secondary Source(s): Other family member (spoke to Sons, Peter and Gabriel. Ap rutledge did not appear to be able to mentally participate in the discussion of mom's meds. I called Gabriel, who stated that he thought his mom was on too much meds and gave her supplements and she seemed to have gotten better (more coherrent) for some time. ), Insurance records As the person ultimately responsible for medication therapy, providers are able to order a medication from an existing home medication list in [facility] via the "Reconcile Routine" prior to Confirmation of that medication by ground crewman mission support. Such practice is discouraged except when the physician, in their clinical judg ment, deems that a medical need exists for a medication without regard to previous use.
[2022-05-23 14:16] VITALS: BP 124/53
== END 2022-05-23 14:07 | disposition home health service (06) ==
LOC: EDUNIT# → ED 10:54 → MS2 14:38
PROVIDERS: ADMIT Internal Medicine; ATTEND Internal Medicine
DX: F13.931 Sedative, hypnotic or anxiolytic use, unspecified with withdrawal delirium (principal); F41.0 Panic disorder [episodic paroxysmal anxiety]; F43.10 Post-traumatic stress disorder, unspecified; T42.4X6A Underdosing of benzodiazepines, initial encounter; Z91.138 Patient's unintentional underdosing of medication regimen for other reason; I10 Essential (primary) hypertension; F32.A Depression, unspecified; R41.0 Disorientation, unspecified; Z20.822 Contact with and (suspected) exposure to COVID-19
CPT/HCPCS: 36415; 70450; 71045; 80053; 80306; 80307; 81001; 83690; 84443; 85025; 87086; 87633; 96365; 99284; 99285; A9270; G0378; G0480; 80320; 80329; 81003

== ENCOUNTER 2022-06-16 20:27 | Outpatient (CLI) | payer MEDICARE, OTHER | END 2022-06-16 23:59 | disposition EMS.NT | LOC: EMS 20:27 | DX: R40.0 Somnolence (principal) ==

== ENCOUNTER 2022-06-18 20:35 | Outpatient (CLI) | payer MEDICARE, OTHER | END 2022-06-18 23:59 | disposition critical access hospital (66) | LOC: EMS 20:35 | DX: R41.0 Disorientation, unspecified (principal); R46.4 Slowness and poor responsiveness | CPT/HCPCS: A0425; A0429 ==

== ENCOUNTER 2022-06-18 20:49 | Inpatient (IN) | payer MEDICARE, OTHER ==
[2022-06-18 21:16] LABS: BASOPHILS % (AUTO) 0.5 %; EOSINOPHILS % (AUTO) 0.1 %; HCT - HEMATOCRIT 42.9 % (37.0-47.0); LYMPHOCYTES # (AUTO) 1.4 10^3/uL (1.5-3.5); LYMPHOCYTES % (AUTO) 17.9 %; MEAN CORPUSCULAR HGB CONC 32.6 g/dL (32.0-36.0); MEAN CORPUSCULAR VOLUME 94.9 fL (81.0-99.0); MEAN PLATELET VOLUME 11.3 fL (7.9-10.8); MONOCYTES # (AUTO) 0.3 10^3/uL (0.0-1.0); MONOCYTES % (AUTO) 3.8 %; NEUTROPHILS # (AUTO) 6.1 10^3/uL (1.5-6.6); NEUTROPHILS % (AUTO) 77.4 %; PLT - PLATELET COUNT 225 10^3/uL (130-450); RED BLOOD COUNT 4.52 10^6/uL (4.20-5.40); RED CELL DISTRIBUTION WIDTH 12.8 % (12.0-15.0); WHITE BLOOD COUNT 7.9 x10^3/uL (4.8-10.8)
[2022-06-18 21:34] LABS: ACETAMINOPHEN < 10 ug/mL (10-30); ALKALINE PHOSPHATASE 98 IU/L (42-121); ALT ALANINE AMINOTRANSFERASE 31 IU/L (10-60); AST ASPARTATE AMINOTRANSFERASE 32 IU/L (10-42); BILIRUBIN,TOTAL 0.7 mg/dL (0.2-1.0); BUN - BLOOD UREA NITROGEN 22 mg/dL (6-20); CALCIUM 9.8 mg/dL (8.5-10.3); CARBON DIOXIDE - CO2 26 mmol/L (21-32); CHLORIDE 102 mmol/L (101-111); CREATININE 0.8 mg/dL (0.4-1.0); ETOH - ETHANOL < 5.0 mg/dL; GFR - MDRD 69 (>89); GLUCOSE 132 mg/dL (70-100); LIPASE 45 U/L (22-51); POTASSIUM 4.5 mmol/L (3.5-5.0); SALICYLATE < 6.0 mg/dL; SODIUM 136 mmol/L (135-145); TOTAL PROTEIN 8.1 g/dL (6.7-8.2)
--- NOTE | 2022-06-18 21:47 | XRAY Report ---
PROCEDURE: Chest 1 View X-Ray INDICATIONS: AMS TECHNIQUE: One view of the chest was acquired. COMPARISON: Chest x-ray 05/22/2022. FINDINGS: Surgical changes and devices: None. Lungs and pleura: There are low lung volumes. Pulmonary edema is demonstrated as well as small bilat eral pleural effusions. A few linear opacities are demonstrated in the left lung base likely represen ting atelectasis. No definite acute consolidation. Mediastinum: Mediastinal contours appear unchanged. Heart size is within normal limits. Bones and chest wall: No suspicious bony lesions. Overlying soft tissues appear unremarkable. IMPRESSION: 1. Mild pulmonary edema and small bilateral pleural effusions. Reviewed by: Javier Robbins MD on 06/18/2022 9:46 PM PST Approved by: Javier Robbins MD on 06/18/2022 9:46 PM PST Station ID: [id number]
[2022-06-18 21:52] LABS: MUDS CUTOFF CONCENTRATIONS CUTOFF CONC BELOW:
[2022-06-18 21:54] LABS: BILIRUBIN,URINE NEGATIVE (NEGATIVE); GLUCOSE, URINE (UA) NEGATIVE (NEGATIVE); KETONES,URINE (UA) NEGATIVE (NEGATIVE); LEUKOCYTE ESTERASE, URINE NEGATIVE (NEGATIVE); NITRITE,URINE NEGATIVE (NEGATIVE); OCCULT BLOOD,URINE NEGATIVE (NEGATIVE); PROTEIN,URINE NEGATIVE (NEGATIVE); UROBILINOGEN,URINE 0.2 (NORMAL) E.U./dL (NORMAL)
[2022-06-18 21:55] LABS: CLARITY,URINE CLEAR (CLEAR)
[2022-06-18 22:04] LABS: AMPHETAMINE SCREEN,URINE NEGATIVE (NEGATIVE); BARBITURATE SCREEN,UR NEGATIVE (NEGATIVE); BENZODIAZEPINES SCREEN, URINE NEGATIVE (NEGATIVE); COCAINE SCREEN URINE NEGATIVE (NEGATIVE); METHADONE SCREEN, URINE NEGATIVE (NEGATIVE); METHAMPHETAMINES SCREEN, URINE NEGATIVE (NEGATIVE); OPIATE SCREEN, URINE NEGATIVE (NEGATIVE); OXYCODONE SCREEN, URINE NEGATIVE (NEGATIVE); PROPOXYPHENE SCREEN, URINE NEGATIVE (NEGATIVE); THC CANNABINOID SCREEN, URINE NEGATIVE (NEGATIVE); TRICYCLIC ANTIDEPRESSANT,URINE POSITIVE (NEGATIVE)
--- NOTE | 2022-06-18 22:08 | CT Report ---
PROCEDURE: HEAD WO INDICATIONS: AMS TECHNIQUE: Noncontrast 4.5 mm thick angled axial sections acquired from the foramen magnum to the vertex. For r adiation dose reduction, the following was used: automated exposure control, adjustment of mA and/or kV according to patient size. COMPARISON: CT head 05/22/2022. FINDINGS: Image quality: Evaluation limited by motion artifact. CSF spaces: There is moderate cerebral volume loss with prominence of the ventricles and sulci. Basa l cisterns are patent. No extra-axial fluid collections. Brain: No definite intracranial hemorrhage, mass, or mass effect. Tavera-white matter interface is pre served. There are subcortical and periventricular white matter hypodensities consistent with moderate chronic small vessel ischemic changes. Skull and face: Calvarium and visualized facial bones are intact, without suspicious lesions. Sinuses: Visualized sinuses demonstrate mild mucosal thickening within the ethmoid sinuses. Mastoid air cells are clear. IMPRESSION: 1. No definite acute intracranial abnormality. 2. Moderate cerebral volume loss and chronic white matter small vessel ischemic changes. Reviewed by: Javier Robbins MD on 06/18/2022 10:06 PM PST Approved by: Javier Robbins MD on 06/18/2022 10:06 PM PST Station ID: [id number]
--- NOTE | 2022-06-18 22:48 | ED Physician Documentation ---
PD HPI ALTERED MENTAL STATUS - Stated complaint Stated Complaint: AMS - Chief complaint Chief Complaint: Neuro - History obtained from History obtained from: Patient, EMS - Additional information Additional information: Patient is a 81-year-old female brought in for evaluation for altered mental status. She was last seen around noon time by home health aide. Her son returned home from work this evening and found her laying prone on the ground next to her bed. Patient is unsure of how long she was there but does not feel it was for very long and states that she gets weak and dizzy sometimes when she stands up which is what she believes caused her to fall. EMS reported that initially she seemed more alert and so they helped her back to her bed. After getting more information from her son they went to recheck on her and she was more drowsy thus they encouraged her to come to the emergency department for evaluation. Patient is able to tell me her name and where she is and that she fell at home but cannot give accurate month or year. She states it is June 2016. EMS did bring her medications with her. She has 3 sets of blister packs of medications with varying amounts missing from them. She also has a bottle of clonazepam that was dispensed on May 23 with 60 pills that is empty. The instructions indicate to take twice daily. She has additional clonazepam also in her blister packs which are missing along with gabapentin and other medications. 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 ENGINEER: None : Kidney stones HEENT: None Psych: Depression, Anxiety, Panic attacks, Post traumatic stress disorder, Claustrophobia Musculoskeletal: Osteoporosis Derm: None - Past Surgical History Past Surgical History: Yes Ortho: Other /SYSTEM ENGINEER: Hysterectomy HEENT: Tonsil/Adenoidectomy - Present Medications Home Medications: Ambulatory Orders Medication Instructions Recorded Confirmed Amitriptyline HCl 75 mg PO HS 08/28/12 05/22/22 Gabapentin [Neurontin] 200 mg PO TID 08/28/12 06/18/22 amLODIPine [Norvasc] 10 mg PO DAILY 08/28/12 05/22/22 Metoprolol Succinate [Toprol Xl] 50 mg PO DAILY 08/23/21 05/22/22 lisinopriL [Zestril] 5 mg PO DAILY 01/18/22 05/22/22 clonazePAM [KlonoPIN] 0.5 mg PO BID #60 tab 05/23/22 - Allergies Allergies/Adverse Reactions: Allergies Allergy/AdvReac Type Severity Reaction Status Date / Time ibuprofen AdvReac Severe Nausea Verified 06/18/22 21:02 aspirin AdvReac Mild Nausea Verified 06/18/22 21:02 codeine AdvReac Mild Nausea Verified 06/18/22 21:02 - Social History Does the pt smoke?: No Smoking Status: Never smoker Does the pt drink ETOH?: No Does the pt have substance abuse?: No - Immunizations Immunizations are current?: Yes - POLST Patient has POLST: No PD ED PE NORMAL - General General: No acute distress, Well developed/nourished. No: Alert and oriented X 3 (Drowsy, Knows name and where she is) - HEENT HEENT: Atraumatic, PERRL, EOMI, Moist mucous membranes, Pharynx benign - Neck Neck: Supple, no meningeal sign, No bony TTP - Cardiac Cardiac: RRR - Respiratory Respiratory: No respiratory distress, Clear bilaterally - Abdomen Abdomen: Soft, Non tender - Derm Derm: Warm and dry - Neuro Neuro: policy specialist 2-12 intact, No motor deficit, No sensory deficit, Normal speech. No: Alert and oriented X 3 Eye Opening: To Pain Motor: Obeys Commands Verbal: Confused GCS Score: 12 Results - Vitals Vitals: Vital Signs - 24 hr 06/18/22 06/18/22 06/19/22 21:03 23:07 01:00 Temperature 36.0 C L 35.5 C L Heart Rate 87 89 85 Respiratory 16 12 14 Rate Blood Pressure 140/101 H 165/69 H 150/103 H O2 Saturation 100 100 200 H 06/19/22 04:00 Temperature 35.8 C L Heart Rate 88 Respiratory 20 Rate Blood Pressure 112/69 O2 Saturation 100 Oxygen O2 Source Room air - EKG (time done) 2054 Rate: Rate (enter#) Rhythm: NSR Ischemia: No: ST elevation c/w ischemia - Labs Labs: Laboratory Tests 06/18/22 06/18/22 06/18/22 21:02 21:02 21:02 WBC 7.9 RBC 4.52 Hgb 14.0 Hct 42.9 MCV 94.9 MCH 31.0 MCHC 32.6 RDW 12.8 Plt Count 225 MPV 11.3 H Neut # (Auto) 6.1 Lymph # (Auto) 1.4 L [place] # (Auto) 0.3 Eos # (Auto) 0.0 Baso # (Auto) 0.0 Absolute Nucleated RBC 0.00 Nucleated RBC % 0.0 Sodium 136 Potassium 4.5 Chloride 102 Carbon Dioxide 26 Anion Gap 8.0 BUN 22 H Creatinine 0.8 Estimated GFR (MDRD) 69 L Glucose 132 H Calcium 9.8 Total Bilirubin 0.7 AST 32 ALT 31 Alkaline Phosphatase 98 Total Creatine Kinase Total Protein 8.1 Albumin 4.0 Globulin 4.1 Albumin/Globulin Ratio 1.0 Lipase 45 TSH 0.91 Urine Color Urine Clarity Urine pH Ur Specific [place] Urine Protein Urine Glucose (UA) Urine Ketones Urine Occult Blood Urine Nitrite Urine Bilirubin Urine Urobilinogen Ur Leukocyte Esterase Ur Microscopic Review Urine Culture Comments Nasal Adenovirus (PCR) Nasal B. parapertussis DNA (PCR) Nasal Coronavir 229E PCR Nasal Coronavir HKU1 PCR Nasal Coronavir NL63 PCR Nasal Coronavir OC43 PCR Nasal Enterovir/Rhinovir PCR Nasal Influenza B PCR Nasal Influenza A PCR Nasal Parainfluen 1 PCR Nasal Parainfluen 2 PCR Nasal Parainfluen 3 PCR Nasal Parainfluen 4 PCR Nasal RSV (PCR) Nasal B.pertussis DNA PCR Nasal C.pneumoniae (PCR) [place] Human Metapneumo PCR Nasal M.pneumoniae (PCR) Nasal SARS-CoV-2 (PCR) Salicylates < 6.0 Urine Opiates Screen Ur Oxycodone Screen Urine Methadone Screen Ur Propoxyphene Screen Acetaminophen < 10 L Ur Barbiturates Screen Ur Tricyclics Screen Ur Phencyclidine Scrn Ur Amphetamine Screen U Methamphetamines Scrn U Benzodiazepines Scrn Urine Cocaine Screen U Cannabinoids Screen Ethyl Alcohol < 5.0 06/18/22 06/18/22 06/18/22 21:03 21:45 23:52 WBC RBC Hgb Hct MCV MCH MCHC RDW Plt Count MPV Neut # (Auto) Lymph # (Auto) [place] # (Auto) Eos # (Auto) Baso # (Auto) Absolute Nucleated RBC Nucleated RBC % Sodium Potassium Chloride Carbon Dioxide Anion Gap BUN Creatinine Estimated GFR (MDRD) Glucose Calcium Total Bilirubin AST ALT Alkaline Phosphatase Total Creatine Kinase 322 H Total Protein Albumin Globulin Albumin/Globulin Ratio Lipase TSH Urine Color YELLOW Urine Clarity CLEAR Urine pH 6.0 Ur Specific [place] 1.015 Urine Protein NEGATIVE Urine Glucose (UA) NEGATIVE Urine Ketones NEGATIVE Urine Occult Blood NEGATIVE Urine Nitrite NEGATIVE Urine Bilirubin NEGATIVE Urine Urobilinogen 0.2 (NORMAL) Ur Leukocyte Esterase NEGATIVE Ur Microscopic Review NOT INDICATED Urine Culture Comments NOT INDICATED Nasal Adenovirus (PCR) NOT DETECTED Nasal B. parapertussis DNA (PCR) NOT DETECTED Nasal Coronavir 229E PCR NOT DETECTED Nasal Coronavir HKU1 PCR NOT DETECTED Nasal Coronavir NL63 PCR NOT DETECTED Nasal Coronavir OC43 PCR NOT DETECTED Nasal Enterovir/Rhinovir PCR NOT DETECTED Nasal Influenza B PCR NOT DETECTED Nasal Influenza A PCR NOT DETECTED Nasal Parainfluen 1 PCR NOT DETECTED Nasal Parainfluen 2 PCR NOT DETECTED Nasal Parainfluen 3 PCR NOT DETECTED Nasal Parainfluen 4 PCR NOT DETECTED Nasal RSV (PCR) NOT DETECTED Nasal B.pertussis DNA PCR NOT DETECTED Nasal C.pneumoniae (PCR) NOT DETECTED Fr[place] Human Metapneumo PCR NOT DETECTED Nasal M.pneumoniae (PCR) NOT DETECTED Nasal SARS-CoV-2 (PCR) NOT DETECTED Salicylates Urine Opiates Screen NEGATIVE Ur Oxycodone Screen NEGATIVE Urine Methadone Screen NEGATIVE Ur Propoxyphene Screen NEGATIVE Acetaminophen Ur Barbiturates Screen NEGATIVE Ur Tricyclics Screen POSITIVE H Ur Phencyclidine Scrn NEGATIVE Ur Amphetamine Screen NEGATIVE U Methamphetamines Scrn NEGATIVE U Benzodiazepines Scrn NEGATIVE Urine Cocaine Screen NEGATIVE U Cannabinoids Screen NEGATIVE Ethyl Alcohol PD Medical Decision Making - ED course Complexity details: reviewed results, re-evaluated patient, d/w patient ED course: Patient evaluated for altered mental status. History also obtained from EMS. I did attempt to reach her son and left a voicemail butPhone call was not returned. Patient is evaluated upon arrival and although very drowsy is able to answer some questions appropriately. She has no focal deficits to suggest Stroke. A CT scan of her brain was reviewed as well as a chest x-ray.I also reviewed her labs and there are no significant abnormalities as an explanation to her symptoms. I suspect her presentation is likely related from medication mismanagement as she has had prior admissions for similar reasons and there are also meds missing from her blister packs which should be accounted for.She is protecting her airway. I see no signs of seizure activity or sepsis. Patient has not returned back to her baseline and I have discussed the case with tele hospitalist who will admit the patient for further management. Departure - Departure Disposition: ED Place in Observation Clinical Impression: Altered mental state, History of benzodiazepine use Condition: Fair
[2022-06-19] MEDS ORDERED: SODIUM CHLORIDE 0.9% 1,000 ML IV STA (01:01)
[2022-06-19 01:51] LABS: B. PARAPERTUSSIS- RESP PCR PAN NOT DETECTED; B. PERTUSSIS- RESP PCR PANEL NOT DETECTED; C. PNEUMONIAE- RESP PCR PANEL NOT DETECTED; CORONAVIRUS 229E-RESP PCR NOT DETECTED; CORONAVIRUS HKU1-RESP PCR NOT DETECTED; CORONAVIRUS NL63-RESP PCR NOT DETECTED; CORONAVIRUS OC43-RESP PCR NOT DETECTED; HUMAN METAPNEUMOVIRUS NOT DETECTED; INFLUENZA A- RESP PCR PANEL NOT DETECTED; INFLUENZA B - RESP PCR PANEL NOT DETECTED; M. PNEUMONIAE- RESP PCR PANEL NOT DETECTED; PARAINFLUENZA VIRUS 1 NOT DETECTED; PARAINFLUENZA VIRUS 2 NOT DETECTED; PARAINFLUENZA VIRUS 3 NOT DETECTED; PARAINFLUENZA VIRUS 4 NOT DETECTED; RHINOVIRUS/ENTEROVIRUS NOT DETECTED; RSV- RESP PCR PANEL NOT DETECTED; SARS-CoV-2 -RESP PCR PANEL NOT DETECTED
--- NOTE | 2022-06-19 02:31 | HISTORY & PHYSICAL EXAMINATION ---
Chief Complaint - Chief Complaint Chief Complaint: drowsy History of Present Illness - Admitted From Admitted From:: home - History Obtained From History obtained from: patient Exam Limitations: telemedicine - History of Present Illness HPI Comment/Other: Ms Muro is a 81 yo F with hx depression, anxiety, HTN. Presents to ER via EMS for further evaluation of altered mental status, drowsiness. Pt was found laying face down on the ground by her bed by her son yesterday evening. Unsure downtime. Pt does not remember why she is in the ER. She c urrently thinks she is in [place], she was happy to hear she is on [facility]. Confused about year/date. Pt states her meds were recently adjusted, she does not know which meds or doses. She manages her meds independently. Lives at home alone. History - Past Medical History Cardiovascular: reports: Hypertension, High cholesterol Respiratory: reports: Shortness of breath Neuro: reports: None Endocrine/Autoimmune: reports: None GI: reports: None ENDING MACHINE OPERATOR: reports: None : reports: Kidney stones HEENT: reports: None Psych: reports: Depression, Anxiety, Panic attacks, Post traumatic stress disorder, Claustrophobia Musculoskeletal: reports: Osteoporosis Derm: reports: None MRSA Hx?: No - Past Surgical History Ortho: reports: Other /ENDING MACHINE OPERATOR: reports: Hysterectomy HEENT: reports: Tonsil/Adenoidectomy - Family & Social History Family History Comment/Other: Given patient's hallucination, patient was unable to provide reliable family medical history Social History Notes: She reported she never smoked but she reported she had alcohol problem before - POLST Patient has POLST: No Meds/Allgy - Home Medications Home Medications: Ambulatory Orders Medication Instructions Recorded Confirmed Amitriptyline HCl 75 mg PO HS 08/28/12 05/22/22 Gabapentin [Neurontin] 200 mg PO TID 08/28/12 06/18/22 amLODIPine [Norvasc] 10 mg PO DAILY 08/28/12 05/22/22 Metoprolol Succinate [Toprol Xl] 50 mg PO DAILY 08/23/21 05/22/22 lisinopriL [Zestril] 5 mg PO DAILY 01/18/22 05/22/22 clonazePAM [KlonoPIN] 0.5 mg PO BID #60 tab 05/23/22 - Allergies Allergies/Adverse Reactions: Allergies Allergy/AdvReac Type Severity Reaction Status Date / Time ibuprofen AdvReac Severe Nausea Verified 06/18/22 21:02 aspirin AdvReac Mild Nausea Verified 06/18/22 21:02 codeine AdvReac Mild Nausea Verified 06/18/22 21:02 Review of Systems - Constitutional Constitutional: denies: Fatigue, Fever, Chills, Malaise - Cardiovascular Cariovascular: denies: Palpitations, Chest pain - Respiratory Respiratory: denies: Cough, Sputum production, Wheezing - Gastrointestinal Gastrointestinal: denies: Abdominal pain, Diarrhea, Nausea, Vomiting - Genitourinary Genitourinary: denies: Dysuria, Frequency, Urgency - Integumentary Integumentary: denies: Rash, Pruritis - Neurological Neurological: reports: General weakness. denies: Focal weakness - All Other Systems All Other Systems: reports: Reviewed and negative Prior Level of Functionality: ambulatory with walker, resides at home independently Exam - Vital Signs Reviewed Vital Signs: Yes Vital Signs: Vital Signs x48h Temp Pulse Resp BP Pulse Ox 06/19/22 01:00 35.5 C L 85 14 150/103 H 200 H 06/18/22 23:07 89 12 165/69 H 100 06/18/22 21:03 36.0 C L 87 16 140/101 H 100 - Physical Exam General Appearance: positive: No acute distress Eyes Bilateral: positive: Normal inspection ENT: positive: ENT inspection nml Neck: positive: Nml inspection Respiratory: positive: No respiratory distress Skin: positive: Color nml, No rash Extremities: positive: Full ROM Neurologic/Psychiatric: positive: Disoriented to place, Disoriented to time Conclusion/Plan - Lab Results Lab results reviewed: Yes Fish Bones: 06/18/22 21:02 06/18/22 21:02 - Diagnostic Imaging Results Diagnostic Imaging Results: positive: Final report reviewed - Other Other Results/Comments: Assessment/Plan: Acute toxic encephalopathy -Suspect related to medication mismanagement, found to have missing meds in blister packs -Hold klonopin, amitriptyline and gabapentin for now - resume in a.m. pending confusion -Pt reports she is still feeling very tired, oriented to self -Moves all extremities, CT head unremarkable Depression/Anxiety -Confirm home doses, hold for now HTN -Confirm home meds and resume in a.m. Full code DVT ppx; Lovenox sc Observation status. Clinical telemedicine services delivered using interactive video audio telecommunications while the patient and the rendering provider were not in the same physical location.
[2022-06-19] MEDS ORDERED: ACETAMINOPHEN 325 MG TABLET PO PRN (03:05)
[2022-06-19] MEDS ORDERED: ONDANSETRON 4 MG/2 ML VIAL IVP PRN (03:05)
[2022-06-19] MEDS ORDERED: SODIUM CHLORIDE FLUSH 0.9% 10 ML SYRINGE IVP PRN (03:05)
[2022-06-19] MEDS: ENOXAPARIN 40 MG/0.4 ML SYRINGE SUBQ SCH (09:27)
[2022-06-19] MEDS: SODIUM CHLORIDE FLUSH 0.9% 10 ML SYRINGE IVP SCH ×2 (09:27→18:10)
--- NOTE | 2022-06-19 10:19 | PHARMACY PROGRESS NOTE ---
- Best Possible Medication History Admit Date and Time: 06/19/22 0305 Processed by: Pharmacy Medication History completed: Yes Patient Interview: Pt unable to participate Secondary Source(s): Physician records, Pharmacy records, Insurance records As the person ultimately responsible for medication therapy, providers are able to order a medication from an existing home medication list in [facility] via the "Reconcile Routine" prior to Confirmation of that medication by customer support analyst. Such practice is discouraged except when the physician, in their clinical judgment, deems that a medical need exists for a medication without regard to previous use.
[2022-06-20] MEDS: SODIUM CHLORIDE FLUSH 0.9% 10 ML SYRINGE IVP SCH ×3 (01:34→16:40)
[2022-06-20] MEDS: CALCIUM CARBONATE CHEW 500 MG TABLET PO SCH ×3 (01:55→21:39)
[2022-06-20] MEDS: ENOXAPARIN 40 MG/0.4 ML SYRINGE SUBQ SCH (08:05)
[2022-06-20 08:54] LABS: CALCIUM 9.3 mg/dL (8.5-10.3); CREATININE 0.7 mg/dL (0.4-1.0); POTASSIUM 3.5 mmol/L (3.5-5.0)
[2022-06-20] MEDS: SODIUM CHLORIDE 0.9% 1,000 ML IV SCH ×2 (10:50→23:26)
--- NOTE | 2022-06-20 15:31 | PROVIDER PROGRESS NOTE ---
Assessment/Plan - Problem List (1) Altered mental state Assessment/Plan: Suspect related to medication mismanagement, excessive use, since found to have missing meds in blister packs. One month ago she was here with benzodiazepine withdrawal from not taking her medications and was having auditory hallucina tions. Plan: Hold klonopin, amitriptyline and gabapentin for now - will resume with confusion resolution We will admit to inpatient status since there is a question of whether we have a safe discharge plan for her, since this patient lives with her disabled son and he was apparently the one giving the patient her meds. Also, the home health RN witnessed bottles left out on the countertop for the patient to freely have access to. Hopefully I and Airport Operations Duty Manager will speak to the son who is responsible, Gabriel, who lives in [place], to discuss a better plan for her care, after she is discharged. Perhaps caregivers will need to be hired. Will ask for PT and OT evaluations. (2) Rhabdomyolysis Qualifiers: Rhabdomyolysis type: traumatic Assessment/Plan: She was found down on the ground and has a mild elevation of CK of 322. All her labs were reviewed. The CK elevation did not cause WILLIS. Plan: Follow her CK daily to assure it normalizes. Start IV NS Avoid nephrotoxins and follow BMP daily (3) Depression/Anxiety Plan: Confirm home doses and resume when not somnolent (4) HTN Plan: Resume home meds and a low salt diet - Current Meds Current Meds: Current Medications Generic Name Dose Route Start Last Admin Trade Name Adamq PRN Reason Stop Dose Admin Calcium Carbonate/Glycine 500 mg 06/20/22 02:00 06/20/22 08:05 Calcium Carbonate Chew 500 Mg Tablet PO Not Given BID RAND Enoxaparin Sodium 40 mg 06/19/22 09:00 06/20/22 08:05 Enoxaparin 40 Mg/0.4 Ml Syringe SUBQ 40 mg DAILY RAND Administration Sodium Chloride 1,000 mls @ 83.333 mls/hr 06/20/22 11:00 06/20/22 10:50 Normal Saline 0.9% IV 83.333 mls/hr .Q12H RAND Administration Sodium Chloride 10 ml 06/19/22 09:00 06/20/22 08:05 Sodium Chloride Flush 0.9% 10 Ml Syringe IVP 10 ml 0100,0900,1700 RAND Administration - Lab Result Fish Bone Diagrams: 06/18/22 21:02 06/20/22 08:23 - Additional Planning My Orders: My Active Orders 06/20/22 Evaluate and Treat OT [OT] Routine Evaluate and Treat PT [PT] Routine 06/20/22 11:00 Sodium Chloride 0.9% [Normal Saline 0.9%] 1,000 ml IV 83.333 mls/hr Additional Planning Notes: Attestation: The patient is expected to be discharged or transferred to another facility within 96 hours: Yes. Subjective - Subjective Patient Reports: Resting Comfortably, No Complaints Objective Vital Signs: Vital Signs - 24 hr 06/19/22 06/19/22 06/20/22 17:00 21:00 00:16 Temperature 36.6 C 36.5 C 36.8 C Heart Rate [ 63 91 88 Brachial] Respiratory 18 18 16 Rate Blood Pressure 121/49 L 150/73 H [Left Brachial artery] Blood Pressure 149/64 H [Right Brachial artery] O2 Saturation 97 97 100 06/20/22 06/20/22 06/20/22 05:29 08:28 13:00 Temperature 36.7 C 36.7 C 36.4 C L Heart Rate [ 92 93 96 Brachial] Respiratory 18 14 18 Rate Blood Pressure 134/82 H 150/73 H 152/74 H [Left Brachial artery] Blood Pressure [Right Brachial artery] O2 Saturation 98 98 Oxygen O2 Source Room air I&O (Last 24 Hrs): Intake and Output Totals x24h 06/18/22 06/19/22 06/20/22 23:59 23:59 23:59 Intake Total 2810 240 Output Total 2100 Balance 2810 -1860 General: Other (Appears tired, is sleeping most of the day. Obese female.) HEENT: Mucous membr. moist/pink, Other (Has pink dyed hair) Neck: Supple, No JVD Neuro: Alert, Non Focal Cardiovascular: Regular rate Respiratory: No respiratory distress Abdomen: Soft Extremities: No clubbing, No edema - Results Results: Laboratory Results WBC 7.9 x10^3/uL (4.8-10.8) 06/18/22 21:02 RBC 4.52 10^6/uL (4.20-5.40) 06/18/22 21:02 Hgb 14.0 g/dL (12.0-16.0) 06/18/22 21:02 Hct 42.9 % (37.0-47.0) 06/18/22 21:02 MCV 94.9 fL (81.0-99.0) 06/18/22 21:02 MCH 31.0 pg (27.0-31.0) 06/18/22 21:02 MCHC 32.6 g/dL (32.0-36.0) 06/18/22 21:02 RDW 12.8 % (12.0-15.0) 06/18/22 21:02 Plt Count 225 10^3/uL (130-450) 06/18/22 21:02 MPV 11.3 fL (7.9-10.8) H 06/18/22 21:02 Neut # (Auto) 6.1 10^3/uL (1.5-6.6) 06/18/22 21:02 Lymph # (Auto) 1.4 10^3/uL (1.5-3.5) L 06/18/22 21:02 [place] # (Auto) 0.3 10^3/uL (0.0-1.0) 06/18/22 21:02 Eos # (Auto) 0.0 10^3/uL (0.0-0.7) 06/18/22 21:02 Baso # (Auto) 0.0 10^3/uL (0.0-0.1) 06/18/22 21:02 Absolute Nucleated RBC 0.00 x10^3/uL 06/18/22 21:02 Nucleated RBC % 0.0 /100WBC 06/18/22 21:02 Sodium 136 mmol/L (135-145) 06/20/22 08:23 Potassium 3.5 mmol/L (3.5-5.0) 06/20/22 08:23 Chloride 102 mmol/L (101-111) 06/20/22 08:23 Carbon Dioxide 27 mmol/L (21-32) 06/20/22 08:23 Anion Gap 7.0 (6-13) 06/20/22 08:23 BUN 14 mg/dL (6-20) 06/20/22 08:23 Creatinine 0.7 mg/dL (0.4-1.0) 06/20/22 08:23 Estimated GFR (MDRD) 81 (>89) L 06/20/22 08:23 Glucose 120 mg/dL (70-100) H 06/20/22 08:23 Calcium 9.3 mg/dL (8.5-10.3) 06/20/22 08:23 Total Bilirubin 0.7 mg/dL (0.2-1.0) 06/18/22 21:02 AST 32 IU/L (10-42) 06/18/22 21:02 ALT 31 IU/L (10-60) 06/18/22 21:02 Alkaline Phosphatase 98 IU/L (42-121) 06/18/22 21:02 Total Creatine Kinase 485 IU/L (22-269) H 06/20/22 08:23 Total Protein 8.1 g/dL (6.7-8.2) 06/18/22 21:02 Albumin 4.0 g/dL (3.2-5.5) 06/18/22 21:02 Globulin 4.1 g/dL (2.1-4.2) 06/18/22 21:02 Albumin/Globulin Ratio 1.0 (1.0-2.2) 06/18/22 21:02 Lipase 45 U/L (22-51) 06/18/22 21:02 TSH 0.91 uIU/mL (0.34-5.60) 06/18/22 21:02 Urine Color YELLOW 06/18/22 21:45 Urine Clarity CLEAR (CLEAR) 06/18/22 21:45 Urine pH 6.0 PH (5.0-7.5) 06/18/22 21:45 Ur Specific [place] 1.015 (1.002-1.030) 06/18/22 21:45 Urine Protein NEGATIVE mg/dL (NEGATIVE) 06/18/22 21:45 Urine Glucose (UA) NEGATIVE mg/dL (NEGATIVE) 06/18/22 21:45 Urine Ketones NEGATIVE mg/dL (NEGATIVE) 06/18/22 21:45 Urine Occult Blood NEGATIVE (NEGATIVE) 06/18/22 21:45 Urine Nitrite NEGATIVE (NEGATIVE) 06/18/22 21:45 Urine Bilirubin NEGATIVE (NEGATIVE) 06/18/22 21:45 Urine Urobilinogen 0.2 (NORMAL) E.U./dL (NORMAL) 06/18/22 21:45 Ur Leukocyte Esterase NEGATIVE (NEGATIVE) 06/18/22 21:45 Ur Microscopic Review NOT INDICATED 06/18/22 21:45 Urine Culture Comments NOT INDICATED 06/18/22 21:45 Nasal Adenovirus (PCR) NOT DETECTED 06/18/22 23:52 Nasal B. parapertussis DNA (PCR) NOT DETECTED 06/18/22 23:52 Nasal Coronavir 229E PCR NOT DETECTED 06/18/22 23:52 Nasal Coronavir HKU1 PCR NOT DETECTED 06/18/22 23:52 Nasal Coronavir NL63 PCR NOT DETECTED 06/18/22 23:52 Nasal Coronavir OC43 PCR NOT DETECTED 06/18/22 23:52 Nasal Enterovir/Rhinovir PCR NOT DETECTED 06/18/22 23:52 Nasal Influenza B PCR NOT DETECTED 06/18/22 23:52 Nasal Influenza A PCR NOT DETECTED 06/18/22 23:52 Nasal Parainfluen 1 PCR NOT DETECTED 06/18/22 23:52 Nasal Parainfluen 2 PCR NOT DETECTED 06/18/22 23:52 Nasal Parainfluen 3 PCR NOT DETECTED 06/18/22 23:52 Nasal Parainfluen 4 PCR NOT DETECTED 06/18/22 23:52 Nasal RSV (PCR) NOT DETECTED 06/18/22 23:52 Nasal B.pertussis DNA PCR NOT DETECTED 06/18/22 23:52 Nasal C.pneumoniae (PCR) NOT DETECTED 06/18/22 23:52 [place] Human Metapneumo PCR NOT DETECTED 06/18/22 23:52 Nasal M.pneumoniae (PCR) NOT DETECTED 06/18/22 23:52 Nasal SARS-CoV-2 (PCR) NOT DETECTED 06/18/22 23:52 Salicylates < 6.0 mg/dL 06/18/22 21:02 Urine Opiates Screen NEGATIVE (NEGATIVE) 06/18/22 21:45 Ur Oxycodone Screen NEGATIVE (NEGATIVE) 06/18/22 21:45 Urine Methadone Screen NEGATIVE (NEGATIVE) 06/18/22 21:45 Ur Propoxyphene Screen NEGATIVE (NEGATIVE) 06/18/22 21:45 Acetaminophen < 10 ug/mL (10-30) L 06/18/22 21:02 Ur Barbiturates Screen NEGATIVE (NEGATIVE) 06/18/22 21:45 Ur Tricyclics Screen POSITIVE (NEGATIVE) H 02/21/23 21:45 Ur Phencyclidine Scrn NEGATIVE (NEGATIVE) 06/18/22 21:45 Ur Amphetamine Screen NEGATIVE (NEGATIVE) 06/18/22 21:45 U Methamphetamines Scrn NEGATIVE (NEGATIVE) 06/18/22 21:45 U Benzodiazepines Scrn NEGATIVE (NEGATIVE) 06/18/22 21:45 Urine Cocaine Screen NEGATIVE (NEGATIVE) 06/18/22 21:45 U Cannabinoids Screen NEGATIVE (NEGATIVE) 06/18/22 21:45 Ethyl Alcohol < 5.0 mg/dL 06/18/22 21:02 - Procedures Procedures: Procedures CATARAC PHACOEMULS/ASPIR (09/07/14) INSERT LENS AT CATAR EXT (09/07/14) OP RED-INT FIX RAD/ULNA (04/02/13)
[2022-06-20] MEDS: polyethylene glycoL 3350 17 GM PACKET PO SCH (16:40)
[2022-06-21] MEDS: SODIUM CHLORIDE FLUSH 0.9% 10 ML SYRINGE IVP SCH ×3 (05:00→16:18)
[2022-06-21] MEDS: CALCIUM CARBONATE CHEW 500 MG TABLET PO SCH ×2 (08:10→21:18)
[2022-06-21] MEDS: polyethylene glycoL 3350 17 GM PACKET PO SCH (08:10)
[2022-06-21] MEDS: ENOXAPARIN 40 MG/0.4 ML SYRINGE SUBQ SCH (08:10)
[2022-06-21 09:15] LABS: CALCIUM 9.7 mg/dL (8.5-10.3); CREATININE 0.6 mg/dL (0.4-1.0); POTASSIUM 3.7 mmol/L (3.5-5.0)
[2022-06-21] MEDS: SODIUM CHLORIDE 0.9% 1,000 ML IV SCH ×2 (11:28→23:28)
--- NOTE | 2022-06-21 16:24 | PROVIDER PROGRESS NOTE ---
Assessment/Plan - Problem List (1) Altered mental state Assessment/Plan: Improving alertness, but she is still mostly in bed. Naps. Suspect her AMS this time was related to medication mismanagement, excessive use, since found to have missing meds in blister packs. One month ago she was here with benzodiazepine withdrawal from not taking her medications, which caused her to have auditory and visual hallucinations. Plan: Will continue to hold klonopin, amitriptyline and gabapentin for now - will resume soon, when lethargy resolved She does not yet have a safe discharge plan, since this patient lives with her disabled son and he was apparently the one giving the patient her meds. Also, the home health RN witnessed bottles left out on the countertop for the patient to freely have access to. Today the patient admitted to taking her meds incorrectly. and [facility] RN will speak to the son who is responsible, Gabriel, who lives in [place], to discuss a better plan for her care, after she is discharged. Perhaps a locked medication dispensing machine would be a good option for her. I discussed that with pt today. Continue PT and OT while here. Will order a resumption of Home Health services for after discharge (2) Rhabdomyolysis Qualifiers: Rhabdomyolysis type: traumatic Assessment/Plan: She was found down on the ground and had a mild elevation of CK of 322, which zackary to 485 yesterday. All her labs were reviewed. The CK elevation did not cause WILLIS. Plan: Follow her CK daily to assure it normalizes. Cont IV NS one more day. Avoid nephrotoxins and follow BMP daily (3) Depression/Anxiety Plan: Confirm home doses and resume when not somnolent (4) HTN Plan: Resuming home meds and a low salt diet - Current Meds Current Meds: Current Medications Generic Name Dose Route Start Last Admin Trade Name Freq PRN Reason Stop Dose Admin Calcium Carbonate/Glycine 500 mg 06/20/22 02:00 06/21/22 08:10 Calcium Carbonate Chew 500 Mg Tablet PO 500 mg BID RAND Administration Enoxaparin Sodium 40 mg 06/19/22 09:00 06/21/22 08:10 Enoxaparin 40 Mg/0.4 Ml Syringe SUBQ 40 mg DAILY RAND Administration Sodium Chloride 1,000 mls @ 83.333 mls/hr 06/20/22 11:00 06/21/22 11:28 Normal Saline 0.9% IV 83.333 mls/hr .Q12H RAND Administration Polyethylene Glycol 17 gm 06/20/22 17:00 06/21/22 08:10 Polyethylene Glycol 3350 17 Gm Packet PO 17 gm DAILY RAND Administration Sodium Chloride 10 ml 06/19/22 09:00 06/21/22 16:18 Sodium Chloride Flush 0.9% 10 Ml Syringe IVP Not Given 0100,0900,1700 RAND - Lab Result Fish Bone Diagrams: 06/18/22 21:02 06/22/22 04:54 - Additional Planning My Orders: My Active Orders 06/20/22 17:00 polyethylene glycoL 3350 [Miralax] 17 gm PO DAILY 06/21/22 Home Health Referral [CONS] Routine 06/21/22 07:50 Miscellaenous Nursing Order [RC] QSHIFT 06/22/22 05:00 BMP - BASIC METABOLIC PANEL [CHEM] DAILYLAB CK- CREATINE KINASE [CHEM] DAILYLAB 06/23/22 05:00 BMP - BASIC METABOLIC PANEL [CHEM] DAILYLAB Subjective - Subjective Patient Reports: Feeling Better (She can remember what happened at home: She says she did not have her glasses on so was not taking her medications right. She also says she pulls the pills out of the plastic popup container ad brian., was not following directions), Resting Comfortably Objective Vital Signs: Vital Signs - 24 hr 06/20/22 06/20/22 06/20/22 16:40 20:36 23:40 Temperature 36.5 C 37.0 C 36.8 C Heart Rate [ 93 92 90 Brachial] Heart Rate [ Supine] Respiratory 16 18 18 Rate Blood Pressure 149/58 H 146/64 H [Left Brachial artery] Blood Pressure 146/71 H [Right Brachial artery] Blood Pressure [Sitting] Blood Pressure [Supine] O2 Saturation 100 100 100 06/21/22 06/21/22 06/21/22 08:08 10:16 15:58 Temperature 36.8 C 36.7 C Heart Rate [ 92 98 Brachial] Heart Rate [ 87 Supine] Respiratory 18 18 Rate Blood Pressure [Left Brachial artery] Blood Pressure 122/80 155/70 H [Right Brachial artery] Blood Pressure 152/74 H [Sitting] Blood Pressure 132/71 H [Supine] O2 Saturation 96 96 Oxygen O2 Source Room air I&O (Last 24 Hrs): Intake and Output Totals x24h 06/19/22 06/20/22 06/21/22 23:59 23:59 23:59 Intake Total 2810 4124.345 5133.00 Output Total 2600 1900 Balance 2810 -1395.146 -220.00 General: Alert, Oriented x3, No acute distress HEENT: Atraumatic, Mucous membr. moist/pink, Other (hair is dyed pink) Neuro: Alert, Non Focal Cardiovascular: Regular rate Respiratory: No respiratory distress Abdomen: Soft Extremities: No clubbing, No edema, No tenderness/swelling - Results Results: Laboratory Results WBC 7.9 x10^3/uL (4.8-10.8) 06/18/22 21: RBC 4.52 10^6/uL (4.20-5.40) 06/18/22 21: Hgb 14.0 g/dL (12.0-16.0) 06/18/22 21: Hct 42.9 % (37.0-47.0) 06/18/22 21: MCV 94.9 fL (81.0-99.0) 06/18/22 21: MCH 31.0 pg (27.0-31.0) 06/18/22 21: MCHC 32.6 g/dL (32.0-36.0) 06/18/22 21: RDW 12.8 % (12.0-15.0) 06/18/22 21: Plt Count 225 10^3/uL (130-450) 06/18/22 21: MPV 11.3 fL (7.9-10.8) H 06/18/22 21:02 Neut # (Auto) 6.1 10^3/uL (1.5-6.6) 06/18/22 21: Lymph # (Auto) 1.4 10^3/uL (1.5-3.5) L 06/18/22 21:02 Antelope # (Auto) 0.3 10^3/uL (0.0-1.0) 06/18/22 21: Eos # (Auto) 0.0 10^3/uL (0.0-0.7) 06/18/22 21:02 Baso # (Auto) 0.0 10^3/uL (0.0-0.1) 06/18/22 21:02 Absolute Nucleated RBC 0.00 x10^3/uL 06/18/22 21:02 Nucleated RBC % 0.0 /100WBC 06/18/22 21:02 Sodium 138 mmol/L (135-145) 06/21/22 08:50 Potassium 3.7 mmol/L (3.5-5.0) 06/21/22 08:50 Chloride 103 mmol/L (101-111) 06/21/22 08:50 Carbon Dioxide 27 mmol/L (21-32) 06/21/22 08:50 Anion Gap 8.0 (6-13) 06/21/22 08:50 BUN 10 mg/dL (6-20) 06/21/22 08:50 Creatinine 0.6 mg/dL (0.4-1.0) 06/21/22 08:50 Estimated GFR (MDRD) 96 (>89) 06/21/22 08:50 Glucose 140 mg/dL (70-100) H 06/21/22 08:50 Calcium 9.7 mg/dL (8.5-10.3) 06/21/22 08:50 Total Bilirubin 0.7 mg/dL (0.2-1.0) 06/18/22 21:02 AST 32 IU/L (10-42) 06/18/22 21:02 ALT 31 IU/L (10-60) 06/18/22 21:02 Alkaline Phosphatase 98 IU/L (42-121) 06/18/22 21:02 Total Creatine Kinase 238 IU/L (22-269) 06/21/22 08:50 Total Protein 8.1 g/dL (6.7-8.2) 06/18/22 21:02 Albumin 4.0 g/dL (3.2-5.5) 06/18/22 21:02 Globulin 4.1 g/dL (2.1-4.2) 06/18/22 21:02 Albumin/Globulin Ratio 1.0 (1.0-2.2) 06/18/22 21:02 Lipase 45 U/L (22-51) 06/18/22 21:02 TSH 0.91 uIU/mL (0.34-5.60) 02/21/23 21:02 Urine Color YELLOW 06/18/22 21:45 Urine Clarity CLEAR (CLEAR) 06/18/22 21:45 Urine pH 6.0 PH (5.0-7.5) 06/18/22 21:45 Ur Specific [place] 1.015 (1.002-1.030) 06/18/22 21:45 Urine Protein NEGATIVE mg/dL (NEGATIVE) 06/18/22 21:45 Urine Glucose (UA) NEGATIVE mg/dL (NEGATIVE) 06/18/22 21:45 Urine Ketones NEGATIVE mg/dL (NEGATIVE) 06/18/22 21:45 Urine Occult Blood NEGATIVE (NEGATIVE) 06/18/22 21:45 Urine Nitrite NEGATIVE (NEGATIVE) 06/18/22 21:45 Urine Bilirubin NEGATIVE (NEGATIVE) 06/18/22 21:45 Urine Urobilinogen 0.2 (NORMAL) E.U./dL (NORMAL) 06/18/22 21:45 Ur Leukocyte Esterase NEGATIVE (NEGATIVE) 06/18/22 21:45 Ur Microscopic Review NOT INDICATED 06/18/22 21:45 Urine Culture Comments NOT INDICATED 06/18/22 21:45 Nasal Adenovirus (PCR) NOT DETECTED 06/18/22 23:52 Nasal B. parapertussis DNA (PCR) NOT DETECTED 06/18/22 23:52 Nasal Coronavir 229E PCR NOT DETECTED 06/18/22 23:52 Nasal Coronavir HKU1 PCR NOT DETECTED 06/18/22 23:52 Nasal Coronavir NL63 PCR NOT DETECTED 06/18/22 23:52 Nasal Coronavir OC43 PCR NOT DETECTED 06/18/22 23:52 Nasal Enterovir/Rhinovir PCR NOT DETECTED 06/18/22 23:52 Nasal Influenza B PCR NOT DETECTED 06/18/22 23:52 Nasal Influenza A PCR NOT DETECTED 06/18/22 23:52 Nasal Parainfluen 1 PCR NOT DETECTED 06/18/22 23:52 Nasal Parainfluen 2 PCR NOT DETECTED 06/18/22 23:52 Nasal Parainfluen 3 PCR NOT DETECTED 06/18/22 23:52 Nasal Parainfluen 4 PCR NOT DETECTED 06/18/22 23:52 Nasal RSV (PCR) NOT DETECTED 06/18/22 23:52 Nasal B.pertussis DNA PCR NOT DETECTED 06/18/22 23:52 Nasal C.pneumoniae (PCR) NOT DETECTED 06/18/22 23:52 Frandy Human Metapneumo PCR NOT DETECTED 06/18/22 23:52 Nasal M.pneumoniae (PCR) NOT DETECTED 06/18/22 23:52 Nasal SARS-CoV-2 (PCR) NOT DETECTED 06/18/22 23:52 Salicylates < 6.0 mg/dL 06/18/22 21:02 Urine Opiates Screen NEGATIVE (NEGATIVE) 06/18/22 21:45 Ur Oxycodone Screen NEGATIVE (NEGATIVE) 06/18/22 21:45 Urine Methadone Screen NEGATIVE (NEGATIVE) 06/18/22 21:45 Ur Propoxyphene Screen NEGATIVE (NEGATIVE) 06/18/22 21:45 Acetaminophen < 10 ug/mL (10-30) L 06/18/22 21:02 Ur Barbiturates Screen NEGATIVE (NEGATIVE) 06/18/22 21:45 Ur Tricyclics Screen POSITIVE (NEGATIVE) H 06/18/22 21:45 Ur Phencyclidine Scrn NEGATIVE (NEGATIVE) 06/18/22 21:45 Ur Amphetamine Screen NEGATIVE (NEGATIVE) 06/18/22 21:45 U Methamphetamines Scrn NEGATIVE (NEGATIVE) 06/18/22 21:45 U Benzodiazepines Scrn NEGATIVE (NEGATIVE) 06/18/22 21:45 Urine Cocaine Screen NEGATIVE (NEGATIVE) 06/18/22 21:45 U Cannabinoids Screen NEGATIVE (NEGATIVE) 06/18/22 21:45 Ethyl Alcohol < 5.0 mg/dL 06/18/22 21:02 - Procedures Procedures: Procedures CATARAC PHACOEMULS/ASPIR (09/07/14) INSERT LENS AT CATAR EXT (09/07/14) OP RED-INT FIX RAD/ULNA (04/02/13)
[2022-06-22] MEDS: SODIUM CHLORIDE FLUSH 0.9% 10 ML SYRINGE IVP SCH ×2 (04:31→08:35)
[2022-06-22 05:16] LABS: CALCIUM 9.9 mg/dL (8.5-10.3); CREATININE 0.6 mg/dL (0.4-1.0); POTASSIUM 3.9 mmol/L (3.5-5.0)
[2022-06-22 07:50] VITALS: BP 155/91
[2022-06-22] MEDS: CALCIUM CARBONATE CHEW 500 MG TABLET PO SCH (08:33)
[2022-06-22] MEDS: ENOXAPARIN 40 MG/0.4 ML SYRINGE SUBQ SCH (08:33)
[2022-06-22] MEDS: polyethylene glycoL 3350 17 GM PACKET PO SCH (08:34)
[2022-06-22] MEDS ORDERED: lisinopriL 5 MG TABLET PO SCH (09:00)
[2022-06-22] MEDS ORDERED: amLODIPine 5 MG TABLET PO SCH (09:00)
[2022-06-22] MEDS ORDERED: METOPROLOL SUCCINATE 50 MG TABLET PO SCH (09:00)
[2022-06-22] MEDS ORDERED: clonazePAM 0.5 MG TABLET PO SCH ×2 (11:00→21:00)
--- NOTE | 2022-06-22 11:39 | Discharge Plan ---
Discharge Plan Problem Reviewed?: Yes Disposition: Home Health Service Condition: Stable Prescriptions: clonazePAM [KlonoPIN] 0.5 mg PO BID #60 tab Diet: Regular Activity Restrictions: Activity as Tolerated Shower Restrictions: No Health Concerns: You were hospitalized because of being oversedated, from taking too many of your medications. You are being discharged home with a plan to use a locked, medication dispenser machine. Your son Gabriel has been contacted and he will be getting this medication machine for the house. Your Home Health services have been reordered and the Home Health people, or Gabriel, should fill the medication dispenser correctly and teach you and your other son Angel how to use it. You may continue on the same medication schedule as before this hospitalization. Plan of Treatment: As above. Care Goals: Improvement in symptoms and stabilization are the goals. Assessment: The patient understands and is agreeable with the plan. No Smoking: If you smoke, Please STOP! Call for help. Follow-up with: Martin Wolf DO [Provider Admit Priv/Credential] -
--- NOTE | 2022-06-22 11:43 | DISCHARGE SUMMARY ---
Discharge Summary Admit Date: 06/19/22 Discharge Date: 06/22/22 Discharging Provider: Dr Lety Carolina Primary Care Provider: Dr Martin Wolf Code Status: Attempt Resuscitation Condition at Discharge: Stable Discharge Disposition: Home Health Service - [facility] History of Present Illness: Ms Muro is a 81 yo F with hx depression, anxiety, HTN. Presents to ER via EMS for further evaluation of altered mental status, drowsiness. Pt was found laying face down on the ground yesterday evening, near her bed, by her disabled son Angel, who lives with her. Unsure downtime. Pt does not remember why she is in the ER. She currently thinks she is in [place], she was happy to hear she is on [facility]. Confused about year/date. Pt states her meds were recently adjusted, she does not know which meds or doses. She claims she manages her meds independently. The son Angel called her Home Health agency to ask what to do and was told to sotero 911. EMS found her to have missing meds in the blister packs. In the ER she had stable vital signs and unremarkable labs but was still somnolent and confused. Suspect this is related to medication mismanagement (excessive use), and she will be placed in Observation to manage her AMS. - HOSPITAL COURSE Hospital Course: (1) AMS She has been admitted due to AMS before, from not correctly taking her psychoactive meds. Now again, after she was lucid by Day #3, she stated that she had taken her meds wrong and took too many "because she did not have her glasses on and couldn't see" and because the bubble packs were there in front of her and she had "not remembered if she had taken them already". In fact, EMS found her to have missing meds in the blister packs, when they picked her up. The son that lives with her, Angel, is disabled and has a Hx of making poor decisions on her behalf. We did not resume her klonopin, amitriptyline and gabapentin until lethargy resolved. GADIEL and [facility] RN then worked with the responsible son, Gabriel in [place], to get her a locked medicatuon administration machine, to have Home Health or he or a pharmacy to fill it, and use meds correctly going forward. Home Health order was resumed. (2) Rhabdomyolysis She was found down on the ground. The CK was checked after admission, and had mild elevation with CK 322, which zackary to 485 the following day. The CK elevation did not cause WILLIS. CK normalized by day #3, after being on iv fluids. Worked with PT and OT while here. Home Health order was resumed. (3) Depression/Anxiety We confirmed her home doses and resumed them when she was not somnolent. (4) HTN Resumed home BP meds when awake and able to swallow and a low salt diet - ALLERGIES Allergies/Adverse Reactions: Allergies Allergy/AdvReac Type Severity Reaction Status Date / Time ibuprofen AdvReac Severe Nausea Verified 06/18/22 21:02 aspirin AdvReac Mild Nausea Verified 06/18/22 21:02 codeine AdvReac Mild Nausea Verified 06/18/22 21:02 - MEDICATIONS Home Medications: Ambulatory Orders Medication Instructions Recorded Confirmed Amitriptyline HCl 75 mg PO HS 08/28/12 06/19/22 Gabapentin [Neurontin] 200 mg PO TID 08/28/12 06/18/22 Metoprolol Succinate [Toprol Xl] 50 mg PO DAILY 08/23/21 06/19/22 lisinopriL [Zestril] 5 mg PO DAILY 01/18/22 06/19/22 Amlodipine Besylate [Norvasc] 10 mg PO DAILY 06/19/22 06/19/22 Acetaminophen [Tylenol] 650 mg PO Q4HR PRN tab 06/22/22 Calcium Carbonate [Tums (Calcium 500 mg PO BID tab 06/22/22 Carbonate 500mg)] clonazePAM [KlonoPIN] 0.5 mg PO BID #60 tab 06/22/22 - PHYSICAL EXAM AT DISCHARGE General Appearance: positive: No acute distress, Alert, Other (Has pink-dyed hair.) Eyes Bilateral: positive: Normal inspection, EOMI ENT: positive: ENT inspection nml, No signs of dehydration Neck: positive: Nml inspection, No JVD Respiratory: positive: No respiratory distress, Breath sounds nml Cardiovascular: positive: Regular rate & rhythm, No murmur Abdomen: positive: Non-tender, Nml bowel sounds, No distention Skin: positive: Warm, Dry Extremities: positive: Non-tender, No pedal edema Neurologic/Psychiatric: positive: Oriented x3, Motor nml, Sensation nml - LABS Result Diagrams: 06/18/22 21:02 06/22/22 04:54 - DIAGNOSTIC IMAGING Diagnostic Imaging Results: Final report reviewed - FOLLOW UP Follow Up: See PCP after discharge for routine office visit. - TIME SPENT Time Spent in Discharge (Minutes): 30
== END 2022-06-22 14:35 | disposition home health service (06) | DRG 917 ==
LOC: EDUNIT# → ED 20:49 → MS2 06-19 03:05 → OBSVTOIN 06-20 10:29
PROVIDERS: ADMIT Student in an Organized Health Care Education/Training Program; ATTEND Internal Medicine
DX: G92.9 Unspecified toxic encephalopathy (principal); T50.911A Poisoning by multiple unspecified drugs, medicaments and biological substances, accidental (unintentional), initial encounter; G92.8 Other toxic encephalopathy; J81.1 Chronic pulmonary edema; J90 Pleural effusion, not elsewhere classified; T79.6XXA Traumatic ischemia of muscle, initial encounter; Z20.822 Contact with and (suspected) exposure to COVID-19; F32.A Depression, unspecified; F41.9 Anxiety disorder, unspecified; I10 Essential (primary) hypertension; E66.9 Obesity, unspecified; E78.00 Pure hypercholesterolemia, unspecified; Z68.32 Body mass index [BMI] 32.0-32.9, adult; Z79.899 Other long term (current) drug therapy; Z87.898 Personal history of other specified conditions; Z91.14 Patient's other noncompliance with medication regimen
CPT/HCPCS: 36415; 51701; 70450; 71045; 80048; 80053; 80306; 80307; 81003; 82550; 83690; 84443; 85025; 87633; 93005; 96360; 96361; 96372; 97116; 97162; 97165; 99284; 99285; A9270; G0480; J1650; 80320; 80329; 81001; 87086

== ENCOUNTER 2022-11-19 08:00 | Outpatient (CLI) | payer MEDICARE, OTHER ==
--- NOTE | 2022-11-19 11:44 | XRAY Report ---
PROCEDURE: Ankle 3 View RT INDICATIONS: RIGHT ANKLE ORIF TECHNIQUE: 3 views of the ankle were acquired. COMPARISON: X-ray ankle 03/25/2022 FINDINGS: Bones: Medial malleoli as well as distal fibular ORIF. Hardware is intact without evidence of hardwa re fracture or periprosthetic lucency to suggest loosening. Old healed fractures are noted. No acute fractures are identified. Ankle mortise is normally aligned. No suspicious bony lesions. Soft tissues: No tibiotalar joint effusion. Achilles tendon appears normal. IMPRESSION: No visualized acute fracture or dislocation. However, occult injury cannot be excluded. Recommend kat rt interval imaging follow-up in 7-10 days as clinically indicated for additional evaluation. Reviewed by: Jazlyn Sidhu MD on 11/19/2022 11:43 AM PDT Approved by: Jazlyn Sidhu MD on 11/19/2022 11:43 AM PDT Station ID: [id number]
== END 2022-11-19 23:59 | disposition home or self-care (01) ==
LOC: DI.WOS 08:00
PROVIDERS: ATTEND Orthopaedic Surgery
DX: S82.851A Displaced trimalleolar fracture of right lower leg, initial encounter for closed fracture (principal)

== ENCOUNTER 2024-03-29 15:08 | Inpatient (IN) ==
--- NOTE | 2024-03-29 16:13 | ED Physician Documentation ---
History of Present Illness Stated complaint Stated Complaint: FOUND ON FLOOR/AMS Chief complaint Chief Complaint: Neuro History obtained from History obtained from: Patient History of Present Illness Timing: Prior to arrival Additonal information Additional information: Patient is an 83-year-old female presents to the emergency department after being found on the ground by her son. He is a poor historian and states he felt heard her fall around 5 but then states he heard her fall around noon. He notes he also heard her fall right before she came in. He is not clear on if these are recurrent falls or if he found her independently each time.. Patient has nurse who checks on her and her son who lives with her. She takes clonazepam and gabapentin. patient continues to have persistent sympptoms at home. Meds/Allgy Home Medications Ambulatory Orders Medication Instructions Recorded Confirmed amitriptyline 75 mg tablet 75 mg PO HS 08/28/12 06/19/22 gabapentin 100 mg capsule 200 mg PO TID 08/28/12 06/18/22 metoprolol succinate 50 mg 50 mg PO DAILY 08/23/21 06/19/22 tablet,extended release 24 hr lisinopril 5 mg tablet 5 mg PO DAILY 01/18/22 06/19/22 amlodipine 10 mg tablet (Norvasc) 10 mg PO DAILY 06/19/22 06/19/22 acetaminophen 325 mg tablet 650 mg (2 x 325 mg) PO Q4HR PRN 06/22/22 Pain 1 to 4, or Fever calcium carbonate 500 mg (2.5 x 200 mg calcium (500 06/22/22 mg)) PO BID clonazepam 0.5 mg tablet 0.5 mg PO BID #60 tabs 06/22/22 Allergies Allergies Allergy/AdvReac Type Severity Reaction Status Date / Time ibuprofen AdvReac Severe Nausea Verified 03/29/24 15:22 aspirin AdvReac Mild Nausea Verified 03/29/24 15:22 codeine AdvReac Mild Nausea Verified 03/29/24 15:22 PFSH Social History Social History Smoking Status: Never smoker If you are a former smoker, when did you quit? (Date/Year): n/a Number of Years Smoked: 0 How many cigarettes a day do you smoke? (20 cigarettes=1 Pk): 0 Do you dip or chew tobacco?: No Do you vape?: No Patient requests smoking cessation consult: No Initiate information on smoking cessation: No Relationship: Home Mobility Equipment: Cane and Wheeled walker History of Abuse: No POLST Patient has POLST: No Exam Constitutional no apparent distress Patient appears somnolent at home in no acute distress. She is easily arousable but will quickly fall asleep HENMT normocephalic and head/scalp atraumatic Eyes PERRL, EOMs intact bilaterally, conjunctivae normal and no scleral icterus Neck/C-Spine visual inspection normal, cervical spine nontender, cervical full ROM noted and supple Lymph no lymphadenopathy noted Chest inspection of chest normal Respiratory breath sounds equal bilaterally, normal respiratory effort, clear to auscultation bilaterally, no wheezes, no rales and no retractions Cardiovascular normal heart rate noted, regular rhythm noted, no gallop, no rub, no murmur, no JVD and no clicks Gastrointestinal abdomen normal to inspection Genitourinary no CVA tenderness Back/Pelvis spine normal to inspection Extremities Reproducible right hip tenderness without swelling or bruising. Patient has no significant shortening but difficulty bending extending flexing right hip. 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 Patient is able to move both legs against gravity. Skin skin color normal, no rash, no lesions and no ecchymosis noted Results Vitals Vitals: Vital Signs - 24 hr 03/29/24 15:15 03/29/24 16:14 03/29/24 18:11 Temperature 36.3 C L Temperature Source Temporal Artery Scan Pulse Rate 102 H 100 H 105 H Respiratory Rate 18 20 22 Blood Pressure 105/64 122/68 125/66 O2 Saturation 97 97 95 O2 Source Room air Room air Pain Intensity 0 6 Oxygen O2 Source Room air Labs Labs: Laboratory Tests 03/29/24 03/29/24 03/29/24 15:50 15:51 17:14 WBC 15.9 H RBC 5.01 Hgb 15.4 Hct 47.0 MCV 93.8 MCH 30.7 MCHC 32.8 RDW 13.1 Plt Count 294 MPV 11.0 H Neut # (Auto) 12.9 H Lymph # (Auto) 1.8 [place]ickman # (Auto) 1.0 Eos # (Auto) 0.0 Baso # (Auto) 0.1 Absolute Nucleated RBC 0.00 Nucleated RBC % 0.0 PT 12.9 H INR 1.2 Sodium 135 Potassium 3.8 Chloride 100 L Carbon Dioxide 27 Anion Gap 8.0 BUN 27 H Creatinine 1.2 Estimated GFR (MDRD) 43 L Glucose 131 H Calcium 9.7 Magnesium 2.2 Total Bilirubin 0.5 AST 20 ALT 19 Alkaline Phosphatase 88 Total Creatine Kinase 87 Troponin I High Sens 53.7 H* Total Protein 8.0 Albumin 4.2 Globulin 3.8 Albumin/Globulin Ratio 1.1 Urine Color YELLOW Urine Clarity CLEAR Urine pH 7.[address] [place] 1.025 Urine Protein 100 H Urine Glucose (UA) NEGATIVE Urine Ketones NEGATIVE Urine Occult Blood NEGATIVE Urine Nitrite NEGATIVE Urine Bilirubin NEGATIVE Urine Urobilinogen 0.2 (NORMAL) Ur Leukocyte Esterase NEGATIVE Urine RBC 0-5 Urine WBC 4-5 Ur Squamous Epith Cells RARE Squamous Amorphous Sediment Rare Urine Bacteria Rare Urine Mucus Few Strands Ur Microscopic Review INDICATED Urine Culture Comments NOT INDICATED Urine Opiates Screen NEGATIVE Ur Buprenorphine Scrn NEGATIVE Ur Oxycodone Screen NEGATIVE Urine Methadone Screen NEGATIVE Ur Barbiturates Screen NEGATIVE Ur Tricyclics Screen POSITIVE H Ur Phencyclidine Scrn NEGATIVE Ur Amphetamine Screen NEGATIVE U Methamphetamines Scrn NEGATIVE U Benzodiazepines Scrn NEGATIVE Urine Cocaine Screen NEGATIVE U Cannabinoids Screen NEGATIVE Ur Drug Screen Comment CUTOFF CONC BELOW: Ethyl Alcohol < 10.0 03/29/24 19:15 WBC RBC Hgb Hct MCV MCH MCHC RDW Plt Count MPV Neut # (Auto) Lymph # (Auto) [place]ick[place] # (Auto) Eos # (Auto) Baso # (Auto) Absolute Nucleated RBC Nucleated RBC % PT INR Sodium Potassium Chloride Carbon Dioxide Anion Gap BUN Creatinine Estimated GFR (MDRD) Glucose Calcium Magnesium Total Bilirubin AST ALT Alkaline Phosphatase Total Creatine Kinase Troponin I High Sens 50.5 H* Total Protein Albumin Globulin Albumin/Globulin Ratio Urine Color Urine Clarity Urine pH Ur Specific [place] Urine Protein Urine Glucose (UA) Urine Ketones Urine Occult Blood Urine Nitrite Urine Bilirubin Urine Urobilinogen Ur Leukocyte Esterase Urine RBC Urine WBC Ur Squamous Epith Cells Amorphous Sediment Urine Bacteria Urine Mucus Ur Microscopic Review Urine Culture Comments Urine Opiates Screen Ur Buprenorphine Scrn Ur Oxycodone Screen Urine Methadone Screen Ur Barbiturates Screen Ur Tricyclics Screen Ur Phencyclidine Scrn Ur Amphetamine Screen U Methamphetamines Scrn U Benzodiazepines Scrn Urine Cocaine Screen U Cannabinoids Screen Ur Drug Screen Comment Ethyl Alcohol Rads (name of study) Chest X-ray: Relevant Findings:: EMP independent interpretation of test CT head: Relevant Findings:: EMP independent interpretation of test CT cervical spine: Relevant Findings:: EMP independent interpretation of test PD Medical Decision Making ED course Complexity details: reviewed old records and reviewed results ED course: Patient presents by EMS after she was found down by her son with changes in mental status. Notes patient was hard to wake up was speaking and slurred speech. He notes she was found in the morning and this afternoon and it was this afternoon he called EMS. Patient is a poor historian as well as She is ANO x 2 on arrival able to follow simple commands but often resting on examination requiring multiple times to be awakened. Patient able to move extremities with difficulty of bilateral lower legs against gravity. NIH score of 7 on arrival. GCS 13. Labs obtained here in the emergency department do show mild leukocytosis of 15 CMP does show a GFR of 43 however patient's most recent GFR was from over a year ago that did show greater than 80. Concern for possible WILLIS fluids were started here in the emergency department. Patient on arrival did initially have some soft blood pressures with 96/60 and 105 SBP on arrival however this improved after a liter of fluids here in the ED with blood pressure 125/66. Physical exam did show some reproducible tenderness to right hip on initial examination. CT head and CT C-spine showed no acute fracture CT scan of head showed no acute findings. CXR did show Prominence of the interstitial markings and small bilateral pleural effusions. Findings are concerning for volume overload. Will hold on any more IV fluids patient will be admitted for altered mental status. She did have an elevated troponin on arrival but EKG showed no ST elevations or changes. Patient will be admitted with strict return precautions. Discharge Plan Discharge Patient Disposition: 66 [facility] DC/Xfer Condition: Fair Clinical Impression: Altered mental status, Fall at home, Acute dehydration, Elevated troponin I level Prescriptions: No Action amitriptyline 75 MG tablet 75 mg PO HS gabapentin 100 MG capsule 200 mg PO TID metoprolol succinate 50 MG tablet extended release 24 hr 50 mg PO DAILY Patient Comments: BRISSA SON STATES, NOT TAKEN FOR 2 DAYS, NEEDS REFILL. Rx Instructions: unknown if this currently being taken lisinopril 5 MG tablet 5 mg PO DAILY amlodipine [Norvasc] 10 MG tablet 10 mg PO DAILY Patient Comments: take 1 tablet by mouth once daily acetaminophen 325 MG tablet 650 mg PO Q4HR PRN (Reason: Pain 1 to 4, or Fever) 0RF calcium carbonate 500 MG tablet,chewable 500 mg PO BID 0RF clonazepam 0.5 MG tablet 0.5 mg PO BID Qty: 60 0RF Print Language: Bhutanese
[2024-03-29 16:19] LABS: BASOPHILS # (AUTO) 0.1 10^3/uL (0.0-0.1); BASOPHILS % (AUTO) 0.3 %; HGB - HEMOGLOBIN 15.4 g/dL (12.0-16.0); LYMPHOCYTES # (AUTO) 1.8 10^3/uL (1.5-3.5); LYMPHOCYTES % (AUTO) 11.6 %; MEAN CORPUSCULAR HEMOGLOBIN 30.7 pg (27.0-31.0); MEAN CORPUSCULAR HGB CONC 32.8 g/dL (32.0-36.0); MEAN CORPUSCULAR VOLUME 93.8 fL (81.0-99.0); MONOCYTES % (AUTO) 6.4 %; NEUTROPHILS # (AUTO) 12.9 10^3/uL (1.5-6.6); NEUTROPHILS % (AUTO) 81.1 %; PLT - PLATELET COUNT 294 10^3/uL (130-450); RED BLOOD COUNT 5.01 10^6/uL (4.20-5.40); RED CELL DISTRIBUTION WIDTH 13.1 % (12.0-15.0); WHITE BLOOD COUNT 15.9 x10^3/uL (4.8-10.8)
[2024-03-29 16:23] LABS: BILIRUBIN,URINE NEGATIVE (NEGATIVE); GLUCOSE, URINE (UA) NEGATIVE (NEGATIVE); KETONES,URINE (UA) NEGATIVE (NEGATIVE); LEUKOCYTE ESTERASE, URINE NEGATIVE (NEGATIVE); NITRITE,URINE NEGATIVE (NEGATIVE); OCCULT BLOOD,URINE NEGATIVE (NEGATIVE); PH,URINE 7.5 PH (5.0-7.5); PROTEIN,URINE 100 mg/dL (NEGATIVE); UROBILINOGEN,URINE 0.2 (NORMAL) E.U./dL (NORMAL)
[2024-03-29 16:41] LABS: CLARITY,URINE CLEAR (CLEAR)
[2024-03-29 16:43] LABS: AMORPHOUS SEDIMENT,UR Rare /LPF; AMPHETAMINE SCREEN,URINE NEGATIVE (NEGATIVE); BACTERIA,URINE Rare /HPF (None Seen); BARBITURATE SCREEN,UR NEGATIVE (NEGATIVE); BENZODIAZEPINES SCREEN, URINE NEGATIVE (NEGATIVE); BUPRENORPHINE SCREEN, URINE NEGATIVE (NEGATIVE); COCAINE SCREEN URINE NEGATIVE (NEGATIVE); METHADONE SCREEN, URINE NEGATIVE (NEGATIVE); METHAMPHETAMINES SCREEN, URINE NEGATIVE (NEGATIVE); MUCUS,URINE Few Strands; OPIATE SCREEN, URINE NEGATIVE (NEGATIVE); OXYCODONE SCREEN, URINE NEGATIVE (NEGATIVE); RBC,URINE 0-5 /HPF (0-5); SQUAMOUS EPITHELIAL CELL,UR RARE Squamous (<= Few); THC CANNABINOID SCREEN, URINE NEGATIVE (NEGATIVE); TRICYCLIC ANTIDEPRESSANT,URINE POSITIVE (NEGATIVE)
--- NOTE | 2024-03-29 16:55 | CT Report ---
PROCEDURE: CT Head WO INDICATIONS: fall head injury TECHNIQUE: Noncontrast 4.5 mm thick angled axial sections acquired from the foramen magnum to the vertex. For r adiation dose reduction, the following was used: automated exposure control, adjustment of mA and/or kV according to patient size. COMPARISON: None. FINDINGS: Image quality: Excellent. CSF spaces: Basal cisterns are patent. No extra-axial fluid collections. Ventricles are normal in size and shape. Brain: No midline shift. No intracranial masses or hemorrhage. Tavera-white matter interface is norm al. Skull and face: Calvarium and visualized facial bones are intact, without suspicious lesions. Sinuses: Visualized sinuses and mastoids are clear. IMPRESSION: No acute intracranial pathology. No gross acute skull fracture. Age-related volume loss and white matter small vessel chronic ischemic changes. Reviewed by: Francisco Saenz MD on 03/29/2024 4:53 PM PST Approved by: Francisco Saenz MD on 03/29/2024 4:53 PM PST Station ID: [id number]
--- NOTE | 2024-03-29 17:01 | CT Report ---
PROCEDURE: CT Cervical Spine WO INDICATIONS: fall at home TECHNIQUE: Noncontrast 3 mm thick sections acquired from the skull base to the T4 level. Sagittal and coronal r eformats were then constructed. For radiation dose reduction, the following was used: automated exp osure control, adjustment of mA and/or kV according to patient size. COMPARISON: None. FINDINGS: Image quality: Excellent. Bones: No fractures or dislocations. Loss of disc height, degenerative endplate changes and bilater al uncovertebral hypertrophic changes are noted throughout cervical spine more notably at C3-4, C4-5 and C5-6 levels causing mild central canal stenosis, no significant neural foraminal narrowing. Visua lized superior ribs are intact. Soft tissues: Prevertebral soft tissues are normal in thickness. No paravertebral hematomas. No ap ical pneumothoraces. IMPRESSION: No acute, displaced fracture or traumatic subluxation. Mild to moderate degenerative disc disease throughout cervical spine as above. Reviewed by: Francisco Saenz MD on 03/29/2024 5:00 PM PST Approved by: Francisco Saenz MD on 03/29/2024 5:00 PM PST Station ID: [id number]
--- NOTE | 2024-03-29 17:04 | CT Report ---
PROCEDURE: CT Pelvis WO INDICATIONS: right hip pain TECHNIQUE: Noncontrast 3 mm axial sections acquired through the bony pelvis, with coronal and sagittal reformatt ing. For radiation dose reduction, the following was used: automated exposure control, adjustment of mA and/or kV according to patient size. COMPARISON: None. FINDINGS: Image quality: Excellent. Bones: Pelvic ring is intact. No acute pelvic or hip fracture. No hip dislocation. Osteoarthritic ch anges are noted throughout the bony pelvis with joint space narrowing and subchondral sclerosis. No e vidence of avascular necrosis of femoral head. No suspicious intraosseous lesions. Degenerative disc disease in visualized lower lumbar spine is seen. Soft tissues: There is no pelvic free fluid of free air. No abnormal bowel wall thickening. No pelvi c lymphadenopathy. Bladder wall thickness is normal. Patient is status post hysterectomy. No soft tis annika mass or drainable fluid collection is seen. Likely injection granuloma is seen in deep right glut eal soft tissue. IMPRESSION: 1. No acute pelvic or hip fracture. No hip dislocation. Mild to moderate osteoarthritic changes throu ghout the bony pelvis. No evidence of avascular necrosis of femoral head. Generative disc disease in visualized lower lumbar spine. 2. No gross pelvic soft tissue abnormalities. No large hematoma or soft tissue mass. No pelvic free f luid of free air. Reviewed by: Francisco Saenz MD on 03/29/2024 5:02 PM PST Approved by: Francisco Saenz MD on 03/29/2024 5:02 PM PST Station ID: [id number]
[2024-03-29 17:23] LABS: INR 1.2 (0.8-1.2); PT - PROTHROMBIN TIME 12.9 secs (9.9-12.6)
[2024-03-29 17:37] LABS: ALBUMIN 4.2 g/dL (3.2-5.5); ALBUMIN/GLOBULIN RATIO 1.1 (1.0-2.2); ALKALINE PHOSPHATASE 88 IU/L (42-121); ALT ALANINE AMINOTRANSFERASE 19 IU/L (10-60); AST ASPARTATE AMINOTRANSFERASE 20 IU/L (10-42); BILIRUBIN,TOTAL 0.5 mg/dL (0.2-1.0); BUN - BLOOD UREA NITROGEN 27 mg/dL (6-20); CALCIUM 9.7 mg/dL (8.5-10.3); CARBON DIOXIDE - CO2 27 mmol/L (21-32); CHLORIDE 100 mmol/L (101-111); CK- CREATINE KINASE 87 IU/L (30-223); CREATININE 1.2 mg/dL (0.6-1.3); ETOH - ETHANOL < 10.0 mg/dL; GFR - MDRD 43 (>89); GLUCOSE 131 mg/dL (74-104); MAGNESIUM 2.2 mg/dL (1.7-2.3); POTASSIUM 3.8 mmol/L (3.5-4.5); SODIUM 135 mmol/L (135-145)
[2024-03-29] MEDS: LACTATED RINGERS 1,000 ML IV STA (18:53)
--- NOTE | 2024-03-29 20:10 | XRAY Report ---
PROCEDURE: XR Chest 1V INDICATIONS: sepsis work-up TECHNIQUE: One view of the chest was acquired. COMPARISON: 06/18/2022. FINDINGS: Surgical changes and devices: None. Lungs and pleura: Low lung lines. Prominent interstitial markings. Small left and likely small right pleural effusions. Mediastinum: Mediastinal contours appear normal. Heart size is normal. Bones and chest wall: No suspicious bony lesions. Overlying soft tissues appear unremarkable. IMPRESSION: Prominence of the interstitial markings and small bilateral pleural effusions. Findings are concernin g for volume overload. Reviewed by: Virgilio Mejia MD on 03/29/2024 8:09 PM PST Approved by: Virgilio Mejia MD on 03/29/2024 8:09 PM PST Station ID: [id number]
[2024-03-29] MEDS ORDERED: ONDANSETRON 4 MG/2 ML VIAL IVP PRN (21:37)
[2024-03-29] MEDS ORDERED: ACETAMINOPHEN 325 MG TABLET PO PRN (21:37)
--- NOTE | 2024-03-29 22:33 | HISTORY & PHYSICAL EXAMINATION ---
Chief Complaint Chief Complaint Chief Complaint: generalized weakness, found down History of Present Illness Admitted From Admitted From:: home History Obtained From Records Reviewed: yes History obtained from: patient, ER provider Exam Limitations: telemedicine History of Present Illness HPI Comment/Other: Ms Muro is an 83 yo F with history of HTN, PTSD, generalized anxiety disorder. Presents to emergency room after being found down by her son today. History is unclear, ER provider spoke with her son with whom patient lives, he was poor historian - he reported that he heard her fall around 5 and/or noon, unclear if multiple falls. Patient reports she has been falling a lot recently. At time of my evaluation she does not know why she is in hospital, but she is alert and oriented to self and place (hospital/city). She reports that she was feeling unwell yesterday, but unable to clarify the symptoms that she had. Denies dysuria. She reports fevers, not measured. Unclear answers about chest pain, cough, sputum - patient replies "sorry I don't know" in response to review of systems questions. Patient is unsure what medications she takes, but does remember Clonazepam. Denies alcohol or tobacco use. Review of Systems Status of ROS: unobtainable due to mental status (limited ROS due to encephalopathy) Constitutional Reports: Fatigue, Fever, Malaise and Weakness Neurological Reports: General weakness, Confusion, Memory problems and Other (Frequent falls ) Endocrine Reports: Fatigue PFSH Social History Social History Smoking Status: Never smoker If you are a former smoker, when did you quit? (Date/Year): n/a Number of Years Smoked: 0 How many cigarettes a day do you smoke? (20 cigarettes=1 Pk): 0 Do you dip or chew tobacco?: No Do you vape?: No Patient requests smoking cessation consult: No Initiate information on smoking cessation: No Relationship: Home Mobility Equipment: Cane and Wheeled walker History of Abuse: No POLST Patient has POLST: No Meds/Allgy Home Medications Ambulatory Orders Medication Instructions Recorded Confirmed amitriptyline 75 mg tablet 75 mg PO HS 08/28/12 06/19/22 gabapentin 100 mg capsule 200 mg PO TID 08/28/12 06/18/22 metoprolol succinate 50 mg 50 mg PO DAILY 08/23/21 06/19/22 tablet,extended release 24 hr lisinopril 5 mg tablet 5 mg PO DAILY 01/18/22 06/19/22 amlodipine 10 mg tablet (Norvasc) 10 mg PO DAILY 06/19/22 06/19/22 acetaminophen 325 mg tablet 650 mg (2 x 325 mg) PO Q4HR PRN 06/22/22 Pain 1 to 4, or Fever calcium carbonate 500 mg (2.5 x 200 mg calcium (500 06/22/22 mg)) PO BID clonazepam 0.5 mg tablet 0.5 mg PO BID #60 tabs 06/22/22 Allergies Allergies Allergy/AdvReac Type Severity Reaction Status Date / Time ibuprofen AdvReac Severe Nausea Verified 03/29/24 15:22 aspirin AdvReac Mild Nausea Verified 03/29/24 15:22 codeine AdvReac Mild Nausea Verified 03/29/24 15:22 Exam Constitutional normal general appearance, no apparent distress and alert HENMT normocephalic and hearing grossly normal bilaterally Respiratory normal respiratory effort Extremities normal to inspection and normal to palpation Neurology no movement abnormality noted and no focal motor deficit noted Psychiatry orientation abnormal, thought process abnormality noted and cooperative oriented to self/place, slow to respond to questions, confused Skin skin color normal and no rash Sepsis Event Note (H) Evaluation Current Stage of Sepsis: Sepsis Possible source of Sepsis: positive Pulmonary Sepsis Criteria Sepsis Criteria: Recorded Heart Rate greater than 90 bpm and WBC count greater than 12,000 or less than 4000 Conclusion/Plan Lab Results Lab results reviewed: Yes 03/29/24 15:51 03/29/24 17:14 Diagnostic Imaging Results Diagnostic Imaging Results: positive Final report reviewed EKG Results EKG Interpreted Independently: Yes Other Other Results/Comments: Assessment/Plan: Acute metabolic encephalopathy -Etiology unclear, patient reports onset of malaise/generalized weakness yesterday -Currently awake, alert, oriented x 2 -Found down today (immediately after fall per ER provider discussion with son) -CK wnl -CT head no acute abnormalities -Pelvic XR no acute fracture/dislocations -CT C spine no acute findings, mild-mod cervical DJD -Possibly related to infection discussed below -Consider MRI brain for further evaluation pending clinical course -PT/OT consults Sepsis vs SIRS criteria -Elevated leukocytosis, tachycardia ~100, patient reports subjective fevers at home -SBP low 100s at admission, improved with 1 L IV fluid bolus -No clear source of infection at this time, UA neg, afebrile -CXR with intersitial prominence, less likely PNA but will cover empirically for community acquired pneumonia with possible sepsis -Repeat labs in a.m. -F/u procalcitonin -F/u respiratory viral panel Elevated troponin Type II NSTEMI -Trop 53 -> 50, likely demand related -No chest pain however patient is poor historian -EKG reviewed sinus tachy 105 bpm -Possible pulm edema on CXR, no evidence of respiratory distress, O2 sats high 90s on RA -Hold on diuretics, received IV fluids in ER for hypotension at admission -Follow up BNP -Follow up echocardiogrm HTN -Hold antihypertensives Hx generalized anxiety disorder -Med rec verification pending -Hold Klonopin for now for encepahalopathy - consider resuming pending verification of dose/frequency to prevent withdrawals Full code DVT ppx Lovenox sc Core Measures Anticipated LOS I expect patient to be DC'd or transferred within 96 hours.: Yes DVT/VTE - Prophylaxis VTE/DVT Prophylaxis med ordered at admit?: Yes Telemedicine Consult Details Provider Location & Consult Time List names and roles of persons who participated in consult:: Esther ROMERO, ER provider, patient Telemedicine provider location:: [facility]
[2024-03-29] MEDS: cefTRIAXone 2 GM in SODIUM CHLORIDE 0.9% MINIBAG 100 ML IV STA (22:51)
[2024-03-29] MEDS: SODIUM CHLORIDE FLUSH 0.9% 10 ML SYRINGE IVP PRN (22:52)
[2024-03-29] MEDS: AZITHROMYCIN INJ 500 MG in SODIUM CHLORIDE 0.9% 250 ML IV STA (23:29)
[2024-03-29] MEDS: SODIUM CHLORIDE FLUSH 0.9% 10 ML SYRINGE IVP SCH (23:50)
[2024-03-30 00:48] LABS: INFLUENZA A- RESP PCR PANEL NOT DETECTED; INFLUENZA B - RESP PCR PANEL NOT DETECTED; RSV- RESP PCR PANEL NOT DETECTED; SARS-CoV-2 -RESP PCR PANEL NOT DETECTED
[2024-03-30 05:48] LABS: HCT - HEMATOCRIT 43.9 % (37.0-47.0); HGB - HEMOGLOBIN 14.4 g/dL (12.0-16.0); MEAN CORPUSCULAR HEMOGLOBIN 30.8 pg (27.0-31.0); MEAN CORPUSCULAR HGB CONC 32.8 g/dL (32.0-36.0); MEAN CORPUSCULAR VOLUME 93.8 fL (81.0-99.0); MEAN PLATELET VOLUME 10.8 fL (7.9-10.8); RED BLOOD COUNT 4.68 10^6/uL (4.20-5.40); RED CELL DISTRIBUTION WIDTH 13.2 % (12.0-15.0); WHITE BLOOD COUNT 12.4 x10^3/uL (4.8-10.8)
[2024-03-30 06:08] LABS: CALCIUM 9.3 mg/dL (8.5-10.3); CREATININE 0.9 mg/dL (0.6-1.3); POTASSIUM 3.4 mmol/L (3.5-4.5)
[2024-03-30] MEDS: ENOXAPARIN 40 MG/0.4 ML SYRINGE SUBQ SCH (09:20)
--- NOTE | 2024-03-30 11:23 | PHARMACY PROGRESS NOTE ---
Best Possible Medication History Admit Date and Time: 03/29/24 850891 Home Medications Medication Instructions Recorded Confirmed Type gabapentin 100 mg capsule 200 mg PO TID 08/28/12 03/30/24 History metoprolol succinate 50 mg 50 mg PO DAILY 08/23/21 03/30/24 History tablet,extended release 24 hr lisinopril 5 mg tablet 5 mg PO DAILY 01/18/22 03/30/24 History amlodipine 10 mg tablet (Norvasc) 10 mg PO DAILY 06/19/22 03/30/24 History amitriptyline 25 mg tablet 75 mg PO HS 03/30/24 03/30/24 History clonazepam 0.5 mg tablet 0.5 mg PO BID PRN anxiety 03/30/24 03/30/24 History Processed by: Pharmacy Medications reviewed in ED?: No Medication History completed: Yes Patient Interview: Completed Secondary Source(s): Prescription bottles, Pharmacy records and Insurance record s [facility] Statement: As the person ultimately responsible for medication therapy, providers are able to order a medication from an existing home medication list in [facility] via the "Reconcile Routine" prior to Confirmation of that medication by support associate. Such practice is discouraged except when the physician, in their clinical judgment, deems that a medical need exists for a medication without regard to previous use.
[2024-03-30] MEDS: POTASSIUM CHLORIDE 20 MEQ TABLET PO ONE (12:40)
--- NOTE | 2024-03-30 12:50 | PROVIDER PROGRESS NOTE ---
Subjective Subjective Subjective: Patient spoken with, she is alert and oriented x 4, but states that some of her remote memories are fuzzy. She is able to say that she has been falling a lot at home. She does not get dizzy or lightheaded, but she does feel like she loses her balance. Her son is at bedside, and states that she just falls randomly, and her legs give out. She does state that she has had a cough, as well as fevers and chills at home. She states her cough is nonproductive. She has no abdominal pain, chest pain. Current Medications Current Medications Current Medications: Current Medications Generic Name Dose Route Start Last Admin Trade Name Freq PRN Reason Stop Dose Admin Acetaminophen 650 mg 03/29/24 21:37 Acetaminophen 325 Mg Tablet PO Q4HR PRN Pain 1 to 4, or Fever Enoxaparin Sodium 40 mg 03/30/24 09:00 03/30/24 09:20 Enoxaparin 40 Mg/0.4 Ml Syringe SUBQ 40 mg DAILY RAND Administration Ondansetron HCl 4 mg 03/29/24 21:37 Ondansetron 4 Mg/2 Ml Vial IVP Q6HR PRN Nausea / Vomiting Sodium Chloride 10 ml 03/29/24 21:37 03/29/24 22:52 Sodium Chloride Flush 0.9% 10 Ml Syringe IVP 10 ml PRN PRN Administration NEEDED PER PROVIDER ORDERS Sodium Chloride 10 ml 03/30/24 01:00 03/30/24 09:20 Sodium Chloride Flush 0.9% 10 Ml Syringe IVP 10 ml 0100,0900,1700 RAND Administration Objective Vital Signs/Intake & Output Reviewed Vital Signs: Yes Vital Signs: Vital Signs x48h Temp Pulse Resp BP Pulse Ox 03/30/24 11:39 97.9 F 95 H 18 124/78 96 03/30/24 08:15 97.7 F 99 H 20 130/66 96 Intake & Output: Intake & Output 03/28/24 03/29/24 03/30/24 03/31/24 05:59 05:59 05:59 05:59 Intake Total 1350 / 1350 840 / 840 Output Total 30 / 30 750 / 750 Balance 1320 / 1320 90 / 90 Weight (kg) 78.5 kg Objective General Appearance: positive No acute distress and Alert; negative Anxious Eyes Bilateral: positive Normal inspection, PERRL and EOMI ENT: positive ENT inspection nml, Pharynx nml and No signs of dehydration Neck: positive Nml inspection, Thyroid nml and No JVD Respiratory: positive Chest non-tender, No respiratory distress and Breath sounds nml; negative Wheezes, Rales or Rhonchi Cardiovascular: positive Regular rate & rhythm, No murmur and No gallop Abdomen: positive Non-tender and No distention; negative Rebound, Hepatomegaly, Splenomegaly or Mass Back: positive Nml inspection; negative CVA tenderness (R) or CVA tenderness (L) Skin: positive Color nml, No rash, Warm and Dry Extremities: positive Non-tender, Full ROM, Nml appearance and No pedal edema Neurologic/Psychiatric: positive Oriented x3, Motor nml and Mood/affect nml Lab Results 03/30/24 06:16 03/30/24 05:32 Other Labs: Lab Results x24hrs 03/30/24 03/30/24 03/30/24 Range/Units 09:05 06:16 05:32 WBC 12.4 H (4.8-10.8) x10^3/uL RBC 4.68 (4.20-5.40) 10^6/uL Hgb 14.4 (12.0-16.0) g/dL Hct 43.9 (37.0-47.0) % MCV 93.8 (81.0-99.0) fL MCH 30.8 (27.0-31.0) pg MCHC 32.8 (32.0-36.0) g/dL RDW 13.2 (12.0-15.0) % Plt Count 255 (130-450) 10^3/uL MPV 10.8 (7.9-10.8) fL Neut # (Auto) (1.5-6.6) 10^3/uL Lymph # (Auto) (1.5-3.5) 10^3/uL [place] # (Auto) (0.0-1.0) 10^3/uL Eos # (Auto) (0.0-0.7) 10^3/uL Baso # (Auto) (0.0-0.1) 10^3/uL Absolute Nucleated RBC x10^3/uL Nucleated RBC % /100WBC PT (9.9-12.6) secs INR (0.8-1.2) Sodium 137 (135-145) mmol/L Potassium 3.4 L (3.5-4.5) mmol/L Chloride 103 (101-111) mmol/L Carbon Dioxide 28 (21-32) mmol/L Anion Gap 6.0 (6-13) BUN 26 H (6-20) mg/dL Creatinine 0.9 (0.6-1.3) mg/dL Estimated GFR (MDRD) 60 L (>89) Glucose 116 H (74-104) mg/dL Calcium 9.3 (8.5-10.3) mg/dL Magnesium (1.7-2.3) mg/dL Total Bilirubin (0.2-1.0) mg/dL AST (10-42) IU/L ALT (10-60) IU/L Alkaline Phosphatase (42-121) IU/L Total Creatine Kinase (30-223) IU/L Troponin I High Sens (2.3-14.8) ng/L Total Protein (6.4-8.9) g/dL Albumin (3.2-5.5) g/dL Globulin (2.1-4.2) g/dL Albumin/Globulin Ratio (1.0-2.2) Procalcitonin Immunoas 0.09 (<0.5) ng/mL Urine Color Urine Clarity (CLEAR) Urine pH (5.0-7.5) PH Ur Specific [place] (1.002-1.030) Urine Protein (NEGATIVE) mg/dL Urine Glucose (UA) (NEGATIVE) mg/dL Urine Ketones (NEGATIVE) mg/dL Urine Occult Blood (NEGATIVE) Urine Nitrite (NEGATIVE) Urine Bilirubin (NEGATIVE) Urine Urobilinogen (NORMAL) E.U./dL Ur Leukocyte Esterase (NEGATIVE) Urine RBC (0-5) /HPF Urine WBC (0-5) /HPF Ur Squamous Epith Cells (<= Few) Amorphous Sediment /LPF Urine Bacteria (None Seen) /HPF Urine Mucus Ur Microscopic Review Urine Culture Comments Nasal Influenza B PCR Nasal Influenza A PCR Nasal RSV (PCR) Nasal SARS-CoV-2 (PCR) Urine Opiates Screen (NEGATIVE) Ur Buprenorphine Scrn (NEGATIVE) Ur Oxycodone Screen (NEGATIVE) Urine Methadone Screen (NEGATIVE) Ur Barbiturates Screen (NEGATIVE) Ur Tricyclics Screen (NEGATIVE) Ur Phencyclidine Scrn (NEGATIVE) Ur Amphetamine Screen (NEGATIVE) U Methamphetamines Scrn (NEGATIVE) U Benzodiazepines Scrn (NEGATIVE) Urine Cocaine Screen (NEGATIVE) U Cannabinoids Screen (NEGATIVE) Ur Drug Screen Comment Ethyl Alcohol mg/dL 03/29/24 03/29/24 03/29/24 Range/Units 22:48 19:15 17:14 WBC (4.8-10.8) x10^3/uL RBC (4.20-5.40) 10^6/uL Hgb (12.0-16.0) g/dL Hct (37.0-47.0) % MCV (81.0-99.0) fL MCH (27.0-31.0) pg MCHC (32.0-36.0) g/dL RDW (12.0-15.0) % Plt Count (130-450) 10^3/uL MPV (7.9-10.8) fL Neut # (Auto) (1.5-6.6) 10^3/uL Lymph # (Auto) (1.5-3.5) 10^3/uL [place] # (Auto) (0.0-1.0) 10^3/uL Eos # (Auto) (0.0-0.7) 10^3/uL Baso # (Auto) (0.0-0.1) 10^3/uL Absolute Nucleated RBC x10^3/uL Nucleated RBC % /100WBC PT 12.9 H (9.9-12.6) secs INR 1.2 (0.8-1.2) Sodium 135 (135-145) mmol/L Potassium 3.8 (3.5-4.5) mmol/L Chloride 100 L (101-111) mmol/L Carbon Dioxide 27 (21-32) mmol/L Anion Gap 8.0 (6-13) BUN 27 H (6-20) mg/dL Creatinine 1.2 (0.6-1.3) mg/dL Estimated GFR (MDRD) 43 L (>89) Glucose 131 H (74-104) mg/dL Calcium 9.7 (8.5-10.3) mg/dL Magnesium 2.2 (1.7-2.3) mg/dL Total Bilirubin 0.5 (0.2-1.0) mg/dL AST 20 (10-42) IU/L ALT 19 (10-60) IU/L Alkaline Phosphatase 88 (42-121) IU/L Total Creatine Kinase 87 (30-223) IU/L Troponin I High Sens 50.5 H* 53.7 H* (2.3-14.8) ng/L Total Protein 8.0 (6.4-8.9) g/dL Albumin 4.2 (3.2-5.5) g/dL Globulin 3.8 (2.1-4.2) g/dL Albumin/Globulin Ratio 1.1 (1.0-2.2) Procalcitonin Immunoas (<0.5) ng/mL Urine Color Urine Clarity (CLEAR) Urine pH (5.0-7.5) PH Ur Specific [place] (1.002-1.030) Urine Protein (NEGATIVE) mg/dL Urine Glucose (UA) (NEGATIVE) mg/dL Urine Ketones (NEGATIVE) mg/dL Urine Occult Blood (NEGATIVE) Urine Nitrite (NEGATIVE) Urine Bilirubin (NEGATIVE) Urine Urobilinogen (NORMAL) E.U./dL Ur Leukocyte Esterase (NEGATIVE) Urine RBC (0-5) /HPF Urine WBC (0-5) /HPF Ur Squamous Epith Cells (<= Few) Amorphous Sediment /LPF Urine Bacteria (None Seen) /HPF Urine Mucus Ur Microscopic Review Urine Culture Comments Nasal Influenza B PCR NOT DETECTED Nasal Influenza A PCR NOT DETECTED Nasal RSV (PCR) NOT DETECTED Nasal SARS-CoV-2 (PCR) NOT DETECTED Urine Opiates Screen (NEGATIVE) Ur Buprenorphine Scrn (NEGATIVE) Ur Oxycodone Screen (NEGATIVE) Urine Methadone Screen (NEGATIVE) Ur Barbiturates Screen (NEGATIVE) Ur Tricyclics Screen (NEGATIVE) Ur Phencyclidine Scrn (NEGATIVE) Ur Amphetamine Screen (NEGATIVE) U Methamphetamines Scrn (NEGATIVE) U Benzodiazepines Scrn (NEGATIVE) Urine Cocaine Screen (NEGATIVE) U Cannabinoids Screen (NEGATIVE) Ur Drug Screen Comment Ethyl Alcohol < 10.0 mg/dL 03/29/24 03/29/24 Range/Units 15:51 15:50 WBC 15.9 H (4.8-10.8) x10^3/uL RBC 5.01 (4.20-5.40) 10^6/uL Hgb 15.4 (12.0-16.0) g/dL Hct 47.0 (37.0-47.0) % MCV 93.8 (81.0-99.0) fL MCH 30.7 (27.0-31.0) pg MCHC 32.8 (32.0-36.0) g/dL RDW 13.1 (12.0-15.0) % Plt Count 294 (130-450) 10^3/uL MPV 11.0 H (7.9-10.8) fL Neut # (Auto) 12.9 H (1.5-6.6) 10^3/uL Lymph # (Auto) 1.8 (1.5-3.5) 10^3/uL [place] # (Auto) 1.0 (0.0-1.0) 10^3/uL Eos # (Auto) 0.0 (0.0-0.7) 10^3/uL Baso # (Auto) 0.1 (0.0-0.1) 10^3/uL Absolute Nucleated RBC 0.00 x10^3/uL Nucleated RBC % 0.0 /100WBC PT (9.9-12.6) secs INR (0.8-1.2) Sodium (135-145) mmol/L Potassium (3.5-4.5) mmol/L Chloride (101-111) mmol/L Carbon Dioxide (21-32) mmol/L Anion Gap (6-13) BUN (6-20) mg/dL Creatinine (0.6-1.3) mg/dL Estimated GFR (MDRD) (>89) Glucose (74-104) mg/dL Calcium (8.5-10.3) mg/dL Magnesium (1.7-2.3) mg/dL Total Bilirubin (0.2-1.0) mg/dL AST (10-42) IU/L ALT (10-60) IU/L Alkaline Phosphatase (42-121) IU/L Total Creatine Kinase (30-223) IU/L Troponin I High Sens (2.3-14.8) ng/L Total Protein (6.4-8.9) g/dL Albumin (3.2-5.5) g/dL Globulin (2.1-4.2) g/dL Albumin/Globulin Ratio (1.0-2.2) Procalcitonin Immunoas (<0.5) ng/mL Urine Color YELLOW Urine Clarity CLEAR (CLEAR) Urine pH 7.5 (5.0-7.5) PH Ur Specific [place] 1.025 (1.002-1.030) Urine Protein 100 H (NEGATIVE) mg/dL Urine Glucose (UA) NEGATIVE (NEGATIVE) mg/dL Urine Ketones NEGATIVE (NEGATIVE) mg/dL Urine Occult Blood NEGATIVE (NEGATIVE) Urine Nitrite NEGATIVE (NEGATIVE) Urine Bilirubin NEGATIVE (NEGATIVE) Urine Urobilinogen 0.2 (NORMAL) (NORMAL) E.U./dL Ur Leukocyte Esterase NEGATIVE (NEGATIVE) Urine RBC 0-5 (0-5) /HPF Urine WBC 4-5 (0-5) /HPF Ur Squamous Epith Cells RARE Squamous (<= Few) Amorphous Sediment Rare /LPF Urine Bacteria Rare (None Seen) /HPF Urine Mucus Few Strands Ur Microscopic Review INDICATED Urine Culture Comments NOT INDICATED Nasal Influenza B PCR Nasal Influenza A PCR Nasal RSV (PCR) Nasal SARS-CoV-2 (PCR) Urine Opiates Screen NEGATIVE (NEGATIVE) Ur Buprenorphine Scrn NEGATIVE (NEGATIVE) Ur Oxycodone Screen NEGATIVE (NEGATIVE) Urine Methadone Screen NEGATIVE (NEGATIVE) Ur Barbiturates Screen NEGATIVE (NEGATIVE) Ur Tricyclics Screen POSITIVE H (NEGATIVE) Ur Phencyclidine Scrn NEGATIVE (NEGATIVE) Ur Amphetamine Screen NEGATIVE (NEGATIVE) U Methamphetamines Scrn NEGATIVE (NEGATIVE) U Benzodiazepines Scrn NEGATIVE (NEGATIVE) Urine Cocaine Screen NEGATIVE (NEGATIVE) U Cannabinoids Screen NEGATIVE (NEGATIVE) Ur Drug Screen Comment CUTOFF CONC BELOW: Ethyl Alcohol mg/dL Diagnostic Imaging Diagnostic Imaging Results: positive Final report reviewed Sepsis Event Note (H) Evaluation Current Stage of Sepsis: Sepsis Possible source of Sepsis: positive Pulmonary Sepsis Criteria Sepsis Criteria: Recorded Heart Rate greater than 90 bpm and WBC count greater than 12,000 or less than 4000 Assessment/Plan Problem List (1) Acute metabolic encephalopathy: Impression: Patient with urinary retention, frequent falls at home, as well as memory loss, and confusion. MRI brain ordered - negative for acute process. Head CT was done which showed no acute intracranial pathology or skull fractures. Cervical spine showed no fractures, pelvis CT also showed no dislocations or fractures. (2) Leukocytosis: Impression: Patient has a nonproductive cough. Mild leukocytosis. Started treatment for pneumonia with Rocephin and azithromycin yesterday. Procalcitonin negative, will hold off on further antibiotics at this time. Qualifiers: Leukocytosis type: unspecified Qualified Code(s): D72.829 - Elevated white blood cell count, unspecified (3) Hypokalemia: Impression: Likely due to decreased p.o. intake, repleted. Continue to trend. (4) Elevated troponin: Impression: Downtrending. Likely type II AR due to demand ischemia. Echo ordered, pending. (5) HTN (hypertension): Impression: History of hypertension, continue to monitor. May restart lisinopril and amlodipine, per home doses. Qualifiers: Hypertension type: unspecified Qualified Code(s): I10 - Essential (primary) hypertension (6) Generalized anxiety disorder: Impression: Patient on amitriptyline 75 mg nightly, clonazepam 0.5 mg twice daily as needed, gabapentin 200 mg 3 times daily for anxiety. (7) Urinary retention: Impression: Required one straight catheterization for urinary retention. Continue PVRs every 6 hours, will place Yap if needed. MRI ordered as above.
[2024-03-30] MEDS ORDERED: clonazePAM 0.5 MG TABLET PO PRN (12:56)
[2024-03-30] MEDS: GABAPENTIN 100 MG CAPSULE PO SCH (13:46)
[2024-03-30] MEDS: METOPROLOL SUCCINATE 50 MG TABLET PO SCH (13:46)
--- NOTE | 2024-03-30 14:12 | MRI Report ---
PROCEDURE: MRI Brain WO INDICATIONS: rule out NPH TECHNIQUE: Noncontrast axial T1 spin echo, axial T2 fast spin echo, sagittal and axial FLAIR, coronal T2 fast sp in echo, axial gradient echo, axial diffusion and ADC through the brain. COMPARISON: None. FINDINGS: Image quality: Excellent. CSF Spaces: Basal cisterns are patent. No extra-axial fluid collections. Ventricles are normal in size and shape. Brain: No intracranial masses or hemorrhage. There is moderate diffuse cerebral volume loss. There is a mild degree of patchy high FLAIR signal within the periventricular and subcortical white matter. [place]/white matter interface is normal. Brainstem appears normal. Diffusion-weighted images demonst rate no acute ischemic insult. No chronic ischemic insults. Normal intravascular flow voids are pre sent. Skull and face: Calvarium has normal marrow signal. Orbits appear normal. Sinuses: There is moderate mucosal thickening within the left posterior ethmoid sinuses.. IMPRESSION: 1. No acute process. No recent infarct. 2. Volume loss and small vessel ischemic disease. 3. Sinus disease. Reviewed by: Yasemin Castorena MD on 03/30/2024 2:11 PM PST Approved by: Yasemin Castorena MD on 03/30/2024 2:11 PM PST Station ID: [email or web address]
--- NOTE | 2024-03-30 15:18 | PT Plan of Care ---
PT Inpatient Plan of Care DIAGNOSIS Diagnosis: GLF Diagnosis: . 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 Hx of HTN, PTSD, and anxiety disorder. Pt is A&Ox4 and demos difficulty with word finding and self reports it might be due to her falls. Son, Aisha, was in the room during initial evaluation. Pt reported having multiple falls within the last year with some resulting in head injuries and a R ankle fx. Son reports fall 3 years ago. Pt's general confusion does not allow for accurate medical/fall history. She states there are no stairs in the home, she has a walk-in shower but no seat, uses a walker, and her son does the driving. Supine BP 132/66. During PT eval pt is able to roll to L&R with MinAx1, can lift ISHA LE only to around 5in off the bed and limited ISHA DF. Supine to sit at EOB is MinA1 and required verbal cueing to maintain upright position in sitting d/t poor trunk control that put her in a backwards lean. Pt required time to complete transition at EOB so her ft touched the floor, she reported feeling dizzy and blurred vision (pt described blurred vision before adm but is unable to specify). Her BP was attempted but BP cuff malfunctioned. Pt was able to completed ISHA DF and ISHA knee ext against gravity without increased symptoms. PT completed STS MinAx2 with FWW, while obtaining BP (<1min) pt reported feeling increased dizziness and blurred vision. BP recorded at 121/79. Pt rested at EOB and then completed STS and amb 3 ft MinAx2 with FWW to the R towards the HOB without increased symptoms. During re-positioning in bed, pt reports feeling really fatigued and showed exertion while bringing her legs over into bed. Due to pt fatigue mobility progression stopped. Throughout session pt cont to have difficulty with word finding and reported not going to the doctor after some of her falls and head injuries. RN was notified of R ankle. Patient will benefit from skilled PT due to limited mobility, will continue to assess rehab potential. When medically cleared PT recommends discharge to SNF. GOALS Improve supine to sit to:: Contact Guard Improve sit to stand to:: Contact Guard Improve gait ability to:: Min A Advance Assistive Device to:: Front Wheeled Walker Increase distance walked to (in feet):: 5 Improve Sitting Balance to:: Good PLAN Frequency: 1-2x/day Duration: Until goals are met DISCHARGE RECOMMENDATIONS [facility] Support/Services Needed: With assist DC Equipment Recommended: Front wheeled walker Other Discharge Equipment: has FWW, may need wc Transport Needs at Discharge: B[facility] Other: Pt shows weak trunk support in sitting
--- NOTE | 2024-03-30 15:29 | OT Plan of Care ---
OT Inpatient POC Diagnosis DIAGNOSIS Diagnosis: GLF Diagnosis: . 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 Head CT negative. MRI pending. Cleared for therapy evaluation. Pt A&Ox4 however demonstrates cognitive deficits in word finding and safety awareness. Reporting Diplopia and dizziness during session since onset of head strike recently. Vision, coordination, and MMT appear in tact WFL and symmetrically. Pt performed supine to sit MIN A, sit to stand MIN Ax2, and lateral steps to HOB MIN AX2 - mobility assessment limited 2/2 dizziness- Vitals as above - resolved with supine position. RN updated. Currently MIN A ADL's with full set up and increased time. Overall presenting with decreased endurance, activity tolernace, adl status, and cognition impairing safety. Will benefit from cont OT services during acute stay and dec d/c to SNF at this time. -Activities of Daily Living Improve Upper Extremity Dressing to:: Modified Independent Improve Lower Extremity Dressing to:: Modified Independent Improve Grooming/Hygiene to:: Modified Independent Improve Bathing to:: Modified Independent Improve Toileting to:: Modified Independent OT Inpatient Plan PLAN Duration: Until discharge -Discharge Recommendations Discharge Location: [facility] Transport Needs at Discharge: [email or web address]
[2024-03-30] MEDS: MULTIVITAMIN W/MINERALS TABLET PO SCH (17:35)
[2024-03-30] MEDS: BACITRACIN ZINC OINT 1 PACKET TOP SCH (21:00)
[2024-03-30] MEDS: AMITRIPTYLINE 25 MG TABLET PO SCH (21:04)
[2024-03-30] MEDS: polyethylene glycoL 3350 17 GM PACKET PO SCH (21:28)
[2024-03-31 05:37] LABS: HCT - HEMATOCRIT 42.7 % (37.0-47.0); HGB - HEMOGLOBIN 13.7 g/dL (12.0-16.0); MEAN CORPUSCULAR HEMOGLOBIN 31.1 pg (27.0-31.0); MEAN CORPUSCULAR HGB CONC 32.1 g/dL (32.0-36.0); MEAN CORPUSCULAR VOLUME 96.8 fL (81.0-99.0); MEAN PLATELET VOLUME 11.2 fL (7.9-10.8); RED BLOOD COUNT 4.41 10^6/uL (4.20-5.40); RED CELL DISTRIBUTION WIDTH 12.9 % (12.0-15.0); WHITE BLOOD COUNT 9.8 x10^3/uL (4.8-10.8)
[2024-03-31 05:55] LABS: CALCIUM 9.2 mg/dL (8.5-10.3); CREATININE 0.8 mg/dL (0.6-1.3); POTASSIUM 3.7 mmol/L (3.5-4.5)
[2024-03-31] MEDS: amLODIPine 5 MG TABLET PO SCH (08:43)
[2024-03-31] MEDS: lisinopriL 5 MG TABLET PO SCH (08:44)
[2024-03-31 09:00] VITALS: O2SAT 96
[2024-03-31] MEDS ORDERED: polyethylene glycoL 3350 17 GM PACKET PO SCH (09:00)
--- NOTE | 2024-03-31 10:43 | Discharge Summary ---
Discharge Summary Admit Date: 03/29/24 Discharge Date: 03/31/24 Discharging Provider: Dr. Powell [facility] DIAGNOSES Admission Diagnoses: Acute metabolic encephalopathy Sepsis versus SIRS criteria Elevated troponin/type II STEMI Hypertension History of generalized anxiety disorder Discharge Diagnoses with Status of Each Condition: Acute metabolic encephalopathyresolving. Patient with frequent falls at home, memory loss, confusion. MRI brain was negative for any acute process. Likely due to underlying PTSD and anxiety disorder. kettle worker did speak with the patient, and has set her up with further psychiatric care in the outpatient setting. Leukocytosisresolved. Received 1 day of Rocephin azithromycin for possible community-acquired pneumonia. This was stopped. Procalcitonin is negative. Hypokalemiaresolved. Elevated troponindowntrending, likely type II NC due to demand ischemia. Echo was ordered, read remains pending. Generalized anxiety disordercontinue amitriptyline, clonazepam, gabapentin. Follow-up with psychiatry, therapy in the outpatient setting. Urinary retentionresolved. HPI History of Present Illness: Per Dr. Santana: Ms Muro is an 83 yo F with history of HTN, PTSD, generalized anxiety disorder. Presents to emergency room after being found down by her son today. History is unclear, ER provider spoke with her son with whom patient lives, he was poor historian - he reported that he heard her fall around 5 and/or noon, unclear if multiple falls. Patient reports she has been falling a lot recently. At time of my evaluation she does not know why she is in hospital, but she is alert and oriented to self and place (hospital/city). She reports that she was feeling unwell yesterday, but unable to clarify the symptoms that she had. Denies dysuria. She reports fevers, not measured. Unclear answers about chest pain, cough, sputum - patient replies "sorry I don't know" in response to review of systems questions. Patient is unsure what medications she takes, but does remember Clonazepam. Denies alcohol or tobacco use. CONSULTS | PROCEDURES Consultations: Social work, physical therapy, Occupational Therapy Procedures: Echo, cervical spine CT, head CT, pelvis CT, chest x-ray, brain MRI HOSPITAL COURSE Hospital Course: Patient is a 83-year-old female with a history of PTSD, anxiety, who presented with hypertension, PTSD, generalized anxiety disorder. She was found down by her son. She states that she is sometimes loses balance and falls. Cervical spine CT, head CT, pelvis CT was done with no acute dislocations or fractures. On arrival, she had a leukocytosis of 15.9, and was treated for possible pneumonia with 1 dose of Rocephin and azithromycin. Procalcitonin was ordered, was negative. Her antibiotics were stopped, and her leukocytosis resolved on its own. She had some urinary retention when she arrived, and with the confusion, and unsteady gait, an MRI was ordered to rule out NPH or any other neurological process. It was negative for any acute process. Physical therapy did work with the patient, and recommended SNF. However, this will be self pay, this is not an option for her. Home health was discussed including home physical therapy, Occupational Therapy, social work. She was okay with this option. kettle worker also spoke with her about mental health resources, and provided her with some for her PTSD. Overall, she is back at her baseline. She will required some outpatient physical therapy to work on her balance and her gait. She was deemed stable for discharge home. ALLERGIES Allergies Allergy/AdvReac Type Severity Reaction Status Date / Time ibuprofen AdvReac Severe Nausea Verified 03/29/24 15:22 aspirin AdvReac Mild Nausea Verified 03/29/24 15:22 codeine AdvReac Mild Nausea Verified 03/29/24 15:22 MEDICATIONS Ambulatory Orders Medication Instructions Recorded Confirmed gabapentin 100 mg capsule 200 mg PO TID 08/28/12 03/30/24 metoprolol succinate 50 mg 50 mg PO DAILY 08/23/21 03/30/24 tablet,extended release 24 hr lisinopril 5 mg tablet 5 mg PO DAILY 01/18/22 03/30/24 amlodipine 10 mg tablet (Norvasc) 10 mg PO DAILY 06/19/22 03/30/24 amitriptyline 25 mg tablet 75 mg PO HS 03/30/24 03/30/24 clonazepam 0.5 mg tablet 0.5 mg PO BID PRN anxiety 03/30/24 03/30/24 [id number] 1 tab PO DAILYWM 30 days #30 tabs 03/31/24 fumarate 19 mg-folic acid 400 mcg tablet (Therapeutic-M) PHYSICAL EXAM AT DISCHARGE General Appearance: positive Alert; negative Anxious Eyes Bilateral: positive Normal inspection, PERRL and EOMI ENT: positive ENT inspection nml, Pharynx nml and No signs of dehydration Neck: positive Nml inspection, Thyroid nml and No JVD Respiratory: positive Chest non-tender, No respiratory distress and Breath sounds nml; negative Wheezes, Rales or Rhonchi Cardiovascular: positive Regular rate & rhythm, No murmur and No gallop; negative Tachycardia, Bradycardia, Systolic murmur or Diastolic murmur Abdomen: positive Non-tender, Nml bowel sounds and No distention; negative Tenderness, Guarding, Hepatomegaly or Splenomegaly Back: positive Nml inspection; negative CVA tenderness (R) or CVA tenderness (L) Skin: positive Color nml, No rash, Warm and Dry Extremities: positive Non-tender, Full ROM and Nml appearance LABS 03/31/24 04:51 03/31/24 04:51 SEPSIS Current Stage of Sepsis: Ruled out Sepsis Criteria: Recorded Heart Rate greater than 90 bpm and WBC count greater than 12,000 or less than 4000 QUALITY (Female Hip Fx Only) Was patient sent home on osteoporosis medication?: No FOLLOW UP Follow Up: Follow up with your primary care physician. TIME SPENT Time Spent in Discharge (Minutes): 30 Discharge Plan Discharge Patient Disposition: 06 Home Health Service Condition: Fair Prescriptions: New Therapeutic-M 19 mg iron- 400 mcg Tablet 1 tab PO DAILYWM 30 Days Qty: 30 0RF Continued gabapentin 100 MG capsule 200 mg PO TID metoprolol succinate 50 MG tablet extended release 24 hr 50 mg PO DAILY Patient Comments: BRISSA SON STATES, NOT TAKEN FOR 2 DAYS, NEEDS REFILL. Rx Instructions: unknown if this currently being taken lisinopril 5 MG tablet 5 mg PO DAILY amlodipine [Norvasc] 10 MG tablet 10 mg PO DAILY Patient Comments: take 1 tablet by mouth once daily amitriptyline 25 mg tablet 75 mg PO HS Patient Comments: take 3 tablets by mouth at bedtime clonazepam 0.5 MG tablet 0.5 mg PO BID PRN (Reason: anxiety) Rx Instructions: 8AM AND 8PM Activity Restrictions: Activity as Tolerated Diet: Regular Health Concerns: You came in because you are concerned that you are getting more confused, and you had some difficulty walking, or having more frequent falls. Initially, after her son found you down at home, a complete scan was donea CAT scan of your head, pelvis CT, chest x-ray did not show any acute fractures or dislocations. Due to your frequent falls, as well as confusion an MRI of the brain was also done. This also did not show any acute abnormalities. He spoke with our manager social, and she provided you with some mental health resources for your mental health conditions. We have continued you on your home medications. Our physical therapist did work with you as well as her occupational therapist; they do believe he needs some additional therapy prior to return to your normal self. I have prescribed some home health care, which includes a multitude of services to help with your activities of daily living, and help you get stronger and feel more balanced and secure. We are glad you are feeling better, thank you for allowing us to take care of you. Care Plan Goals: 1. Continue take medications as prescribed. 2. Work on getting stronger with physical therapy and Occupational Therapy at home. 3. Continue to follow-up with a psychiatrist, psychologist, therapist. 4. Continue to follow-up with your primary care physician. Print Language: [place] Island[place] Patient Instructions: ED Prevention Fall Stand Alone Forms: PCP List
== END 2024-03-31 13:50 | disposition home health service (06) | DRG 70 ==
LOC: ED 15:08 → SUATTDRO 22:10 → MS2 22:10
PROVIDERS: ADMIT Student in an Organized Health Care Education/Training Program; ATTEND Internal Medicine
DX: R41.82 Altered mental status, unspecified; I21.A1 Myocardial infarction type 2; J18.9 Pneumonia, unspecified organism; R53.1 Weakness; I10 Essential (primary) hypertension; F41.1 Generalized anxiety disorder; Z91.81 History of falling; D72.829 Elevated white blood cell count, unspecified; R91.8 Other nonspecific abnormal finding of lung field; E86.0 Dehydration; R79.89 Other specified abnormal findings of blood chemistry; F43.10 Post-traumatic stress disorder, unspecified; G93.41 Metabolic encephalopathy; E87.6 Hypokalemia; R33.9 Retention of urine, unspecified; R26.81 Unsteadiness on feet; R41.3 Other amnesia; J90 Pleural effusion, not elsewhere classified; M25.551 Pain in right hip